=== PATIENT | female | born 1950 | race Caucasian/White ===

== ENCOUNTER 2016-08-25 22:10 | Emergency (ER) | payer MEDICARE, OTHER ==
[2016-08-25 22:26] VITALS: TEMP 98.2
[2016-08-25] MEDS ORDERED: ACETAMINOPHEN TAB 500 MG TAB PO STA (22:54)
[2016-08-25 23:20] LABS: Basophils # (A) 0.1 k/uL (0-0.2); Basophils % (A) 1 %; CH 32.1; CHCM 35.1; Eosinophils # (A) 0.2 k/uL (0-0.7); Eosinophils % (A) 3 %; HCT 36.2 % (34.0-46.0); HDW 3.17; HGB 12.1 gm/dL (11.4-16.0); Luc # (Auto) 0.28; Luc % (Auto) 4; Lymphocytes # (A) 1.3 k/uL (1.0-4.8); Lymphocytes % (A) 19 %; MCH 30.8 pg (25.0-35.0); MCHC 33.5 g/dL (31.0-37.0); MCV 91.8 fL (80.0-100.0); Mean Platelet Volume 9.1; Monocytes # (A) 0.4 k/uL (0-1.0); Monocytes % (A) 6 %; Neutrophils # (A) 4.5 k/uL (1.3-7.7); Neutrophils % (A) 67 %; RBC 3.94 m/uL (3.80-5.40); RDW 13.9 % (11.5-15.5); WBC 6.8 k/uL (3.8-10.6); WBC (Perox) 6.54
[2016-08-25 23:38] LABS: ALT 29 U/L (9-52); AST 21 U/L (14-36); Alkaline Phosphatase 64 U/L (38-126); Anion Gap 11 mmol/L; Blood Urea Nitrogen 28 mg/dL (7-17); C Reactive Protein 7.8 mg/L (<10.0); Calcium 9.4 mg/dL (8.4-10.2); Carbon Dioxide 24 mmol/L (22-30); Chloride 108 mmol/L (98-107); Glucose 147 mg/dL (74-99); Non-African American GFR(MDRD) 55 (>60 ml/min/1.73 sqM); Sodium 143 mmol/L (137-145); Total Bilirubin 0.4 mg/dL (0.2-1.3); Total Protein 7.2 g/dL (6.3-8.2)
--- NOTE | 2016-08-25 23:55 | ED ---
ENT HPI - General Chief complaint: ENT Stated complaint: ear & jaw swelling Time Seen by Provider: 08/25/16 22:34 Source: patient, RN notes reviewed Mode of arrival: ambulatory Limitations: no limitations - History of Present Illness Initial comments: Patient is a 66-year-old female with chief complaint of a sudden onset of right ear pain this evening. Patient states that the pain radiates from her ear towards her jaw. She also states that she is tender over the anterior part of her forehead. She denies any left-sided facial pain. She denies any significant neck pain, chest pain or shortness of breath. She states that she does have mild headache. She reports that she had a fever yesterday but none today and she denies any recent sinus congestion or pressure, sore throat. Patient which she has a past medical history of neuropathy, hypertension, diabetes, restless leg syndrome. - Related Data Home Medications Medication Instructions Recorded Confirmed ALPRAZolam [Xanax] 0.25 mg PO TID PRN 05/17/14 08/25/16 Acetaminophen-Codeine 300-30mg 1 tab PO BID PRN 05/17/14 08/25/16 [Tylenol w/codeine #3] Albuterol Inhaler [Ventolin Hfa 2 puff INHALATION RT-QID PRN 05/17/14 08/25/16 Inhaler] Allopurinol [Zyloprim] 300 mg PO DAILY 05/17/14 08/25/16 Cholecalciferol [Vitamin D3] 2,000 unit PO DAILY 05/17/14 08/25/16 Famotidine [Pepcid] 20 mg PO DAILY 05/17/14 08/25/16 Furosemide [Lasix] 40 mg PO DAILY 05/17/14 08/25/16 Metoprolol Tartrate [Lopressor] 50 mg PO BID 05/17/14 08/25/16 Potassium Chloride [K-Tab ER] 10 meq PO BID 05/17/14 08/25/16 Pregabalin [Lyrica] 75 mg PO BID 05/17/14 08/25/16 Simvastatin [Zocor] 20 mg PO HS 05/17/14 08/25/16 Spironolactone [Aldactone] 25 mg PO DAILY 05/17/14 08/25/16 metFORMIN HCL [Glucophage] 500 mg PO DAILY 05/17/14 08/25/16 Warfarin [Coumadin] 1.5 mg PO DAILY 06/28/15 08/25/16 Beclomethasone Dipropionate [Qvar 1 puff INHALATION RT-BID 06/29/15 08/25/16 80 mcg/puff] Benazepril HCl [Lotensin] 20 mg PO DAILY 06/29/15 08/25/16 Butalb/APAP/Caff 50-325-40Mg 1 tab PO Q6H PRN 06/29/15 08/25/16 [Fioricet 50-325-40] Fluticasone Nasal [place] [Flonase 1 spray EA NOSTRIL DAILY 06/29/15 08/25/16 Nasal [place]] Nitroglycerin Sl Tabs [Nitrostat] 0.4 mg SUBLINGUAL Q5M PRN 06/29/15 08/25/16 Omeprazole [PriLOSEC] 20 mg PO DAILY 06/29/15 08/25/16 rOPINIRole HCL [Requip] 0.25 mg PO HS 06/29/15 08/25/16 Albuterol Nebulized [Ventolin 2.5 mg INHALATION RT-QID PRN 10/05/15 08/25/16 Nebulized] Previous Rx's Medication Instructions Recorded Ciprofloxacin HCl [Cipro] 500 mg PO Q12HR #14 tablet 10/07/15 Ipratropium-Albuterol Nebulize 3 ml INHALATION QID #120 neb 10/07/15 [Duoneb 0.5 mg-3 mg/3 ml Soln] Amoxic-Pot Clav 875-125Mg 1 tab PO Q12HR #14 tablet 08/26/16 [Augmentin 875-125] HYDROcodone/APAP 5-325MG [[place] 1 - 2 tab PO Q6HR PRN #12 tab 08/26/16 5-325] Allergies Allergy/AdvReac Type Severity Reaction Status Date / Time aspirin Allergy Unknown Verified 08/25/16 22:22 surgical tape AdvReac Unknown Uncoded 08/25/16 22:22 Review of Systems ROS Statement: Those systems with pertinent positive or pertinent negative responses have been documented in the HPI. ROS Other: All systems not noted in ROS Statement are negative. Past Medical History Past Medical History: COPD, CVA/TIA, Diabetes Mellitus, Hypertension, Myocardial Infarction ([place]) Additional Past Medical History / Comment(s): mechanical valve, PT STATED HAD CVA AFFECTED LT SIDE BUT NOW NO RESIDUAL PROBLEMS Last Myocardial Infarction Date:: 2004 History of Any Multi-Drug Resistant Organisms: None Reported Past Surgical History: Cholecystectomy, Coronary Bypass/CABG Additional Past Surgical History / Comment(s): lung surgery Past Anesthesia/Blood Transfusion Reactions: No Reported Reaction Date of Last Stent Placement:: 2004 Past Psychological History: Anxiety Smoking Status: Former smoker Past Alcohol Use History: None Reported Additional Past Alcohol Use History / Comment(s): STARTED SMOKING AT AGE 14 - QUIT 1994 SMOKED 1PPD, Past Drug Use History: None Reported - Past Family History Father History Unknown: Yes Mother Family Medical History: Cancer, Hypertension Additional Family Medical History / Comment(s): colon and liver cancer Sister(s) Family Medical History: Cancer Additional Family Medical History / Comment(s): lung cancer Brother(s) Family Medical History: COPD, Coronary Artery Disease (CAD), Diabetes Mellitus Additional Family Medical History / Comment(s): fem pop General Exam - General Exam Comments Initial Comments: Patient is an alert and oriented [id number] female. No acute distress. Limitations: no limitations General appearance: alert, in no apparent distress Head exam: Present: atraumatic, normocephalic, normal inspection Eye exam: Present: normal appearance, PERRL, EOMI. Absent: scleral icterus, conjunctival injection, periorbital swelling ENT exam: Present: normal exam, normal oropharynx, mucous membranes moist, other (Patient has tenderness over the right forehead. No tenderness underneath the eye. Patient days that the pain radiates toward her jaw but denies any significant tenderness to palpation over the jaw.). Absent: TM's normal bilaterally (Vision is evidence of scarring over the left TM. The right TM is intact and no evidence of TM perforation, erythema or bulging. There is evidence of a mild scar at the 7 o'clock position of the TM.) Neck exam: Present: normal inspection. Absent: tenderness, meningismus, lymphadenopathy Respiratory exam: Present: normal lung sounds bilaterally. Absent: respiratory distress, wheezes, rales, rhonchi, stridor Cardiovascular Exam: Present: regular rate, normal rhythm, normal heart sounds. Absent: systolic murmur, diastolic murmur, rubs, gallop, clicks GI/Abdominal exam: Present: soft, normal bowel sounds. Absent: distended, tenderness, guarding, rebound, rigid Extremities exam: Present: normal inspection, full ROM, normal capillary refill. Absent: tenderness, pedal edema, joint swelling, calf tenderness Back exam: Present: normal inspection Neurological exam: Present: alert, oriented X3, CN II-XII intact Psychiatric exam: Present: normal affect, normal mood Skin exam: Present: warm, dry, intact, normal color. Absent: rash Course Vital Signs 08/25/16 22:23 Temperature 98.2 F Pulse Rate 66 Respiratory 18 Rate Blood Pressure 156/92 O2 Sat by Pulse 95 Oximetry Medical Decision Making - Medical Decision Making Long patient is a 66-year-old female with chief complaint of sudden onset of right sided ear pain. She denies any recent fever or chills or sinus congestion prior to the ear pain. Patient does have some tenderness over the right anterior forehead. There is a possibility that she may have giant cell arteritis or possibility of trigeminal neuralgia. Patient is not tender over the jaw or underneath the eye. Labs were obtained a CT of the brain was also obtained. Labs show no evidence of any significant abnormalities and ESR and CRP are negative. CT was negative for any acute process. There is evidence of chronic degenerative changes. Patient given IV morphine for her current pain. I discussed case Dr. Epps, he recommended to avoid doing any steroids into to offer the patient pain medication and possibly antibiotics. Patient is concerned that if she does not have antibiotics this can affect her heart valve if she does have an infection. Patient will be placed on Augmentin. Patient advised to follow-up with ENT specialist on Sunday. Patient understands the treatment plan and will comply. Return parameters were discussed. - Lab Data Result diagrams: 08/25/16 23:10 08/25/16 23:10 Lab Results 08/25/16 08/25/16 Range/Units 23:10 23:10 WBC 6.8 (3.8-10.6) k/uL RBC 3.94 (3.80-5.40) m/uL Hgb 12.1 (11.4-16.0) gm/dL Hct 36.2 (34.0-46.0) % MCV 91.8 (80.0-100.0) fL MCH 30.8 (25.0-35.0) pg MCHC 33.5 (31.0-37.0) g/dL RDW 13.9 (11.5-15.5) % Plt Count 150 (150-450) k/uL Neutrophils % 67 % Lymphocytes % 19 % Monocytes % 6 % Eosinophils % 3 % Basophils % 1 % Neutrophils # 4.5 (1.3-7.7) k/uL Lymphocytes # 1.3 (1.0-4.8) k/uL Monocytes # 0.4 (0-1.0) k/uL Eosinophils # 0.2 (0-0.7) k/uL Basophils # 0.1 (0-0.2) k/uL ESR 18 (0-20) mm/hr Sodium 143 (137-145) mmol/L Potassium 4.0 (3.5-5.1) mmol/L Chloride 108 H (98-107) mmol/L Carbon Dioxide 24 (22-30) mmol/L Anion Gap 11 mmol/L BUN 28 H (7-17) mg/dL Creatinine 1.00 (0.52-1.04) mg/dL Est GFR (MDRD) Af Amer >60 (>60 ml/min/1.73 sqM) Est GFR (MDRD) Non-Af 55 (>60 ml/min/1.73 sqM) Glucose 147 H (74-99) mg/dL Calcium 9.4 (8.4-10.2) mg/dL Total Bilirubin 0.4 (0.2-1.3) mg/dL AST 21 (14-36) U/L ALT 29 (9-52) U/L Alkaline Phosphatase 64 (38-126) U/L C-Reactive Protein 7.8 (<10.0) mg/L Total Protein 7.2 (6.3-8.2) g/dL Albumin 4.4 (3.5-5.0) g/dL - Radiology Data Radiology results: report reviewed No anterior cranial hemorrhage, mass effect or midline shift seen. Mild chronic white matter ischemic changes of the brain. No significant interval change. Mild chronic sinusitis changes. Disposition Clinical Impression: Right ear pain Disposition: HOME SELF-CARE Condition: Good Instructions: Earache (ED) Additional Instructions: Patient advised to follow up with primary care provider. Follow-up with ENT specialist. Return to the [facility] if any alarming signs or symptoms occur. Take Motrin and Tylenol and prescriptions as prescribed. Prescriptions: Amoxic-Pot Clav 875-125Mg [Augmentin 875-125] 1 tab PO Q12HR #14 tablet HYDROcodone/APAP 5-325MG [[place] 5-325] 1 - 2 tab PO Q6HR PRN #12 tab PRN Reason: Pain Referrals: Antione Cook MD [Primary Care Provider] - 1-2 days Jhony Sexton MD [STAFF PHYSICIAN] - 1-2 days Time of Disposition: 00:27
--- NOTE | 2016-08-26 00:10 | CT ---
EXAMINATION TYPE: CT brain wo con DATE OF EXAM: 08/25/2016 11:34 PM COMPARISON: 06/30/2015 HISTORY: Ear pain, more so on the rt side. Rt sided Jaw pain, Hx: cva CT DLP: 1054.20 mGycm Automated exposure control for dose reduction was used. FINDINGS: There is no acute intracranial hemorrhage, mass effect, or midline shift identified. The cortical sul ci and ventricles are prominent with mild atrophic changes of brain with periventricular white matter ischemic changes of chronic nature. The globes are intact. Mild mucosal thickening is noted in the ethmoid sinuses with chronic sinusitis changes. Visualized middle external and the internal ear canals on either side showed no significant acute abn ormality. Mastoid air cells appear grossly clear bilaterally. IMPRESSION: No acute intracranial hemorrhage, mass effect, or midline shift is seen. Mild chronic white matter ischemic changes of brain. No significant interval change. Mild chronic sinusitis changes.
[2016-08-26 00:20] LABS: Erythrocyte Sedimentation Rate 18 mm/hr (0-20)
[2016-08-26] MEDS ORDERED: MORPHINE SULFATE 2 MG/ML SYRINGE IVP ONE (00:25)
[2016-08-26 00:48] VITALS: BP 128/74; PULSE 71; RESP 16
== END 2016-08-26 00:47 | disposition home or self-care (01) ==
LOC: EC 22:10
DX: H92.01 Otalgia, right ear (principal); E11.40 Type 2 diabetes mellitus with diabetic neuropathy, unspecified; J32.9 Chronic sinusitis, unspecified; I10 Essential (primary) hypertension; I25.2 Old myocardial infarction; J44.9 Chronic obstructive pulmonary disease, unspecified; G25.81 Restless legs syndrome; F41.9 Anxiety disorder, unspecified; Z87.891 Personal history of nicotine dependence; Z95.1 Presence of aortocoronary bypass graft; Z91.048 Other nonmedicinal substance allergy status; Z79.899 Other long term (current) drug therapy; Z79.01 Long term (current) use of anticoagulants; Z86.73 Personal history of transient ischemic attack (TIA), and cerebral infarction without residual deficits
CPT/HCPCS: 99284; 96374; 36415; 80053; 85652; 85025; 86140; 70450; J2270

== ENCOUNTER → 2016-11-08 | Outpatient (CLI) | payer MEDICARE, OTHER ==
--- NOTE | 2016-11-08 13:04 | US ---
EXAMINATION TYPE: US abdomen complete DATE OF EXAM: 11/08/2016 12:53 PM COMPARISON: NONE CLINICAL HISTORY: 66-year-old female RUQ Abdominal Pain R10.11. TECHNIQUE: Multiple sonographic images of the abdomen were obtained. FINDINGS: EXAM MEASUREMENTS: Liver Length: 13.7 cm Gallbladder: Surgically absent CBD: 5.8 mm Spleen: 11.4 cm Right Kidney: 10.2 x 5.3 x 4.8 cm Left Kidney: 9.9 x 4.6 x 5.3 cm Pancreas: No gross abnormality. Liver: Echogenic with coarsened echotexture. No focal lesion identified. Gallbladder: Surgically absent CBD: Within normal limits. Spleen: wnl Right Kidney: No hydronephrosis Left Kidney: No hydronephrosis. Upper IVC: wnl Abd Aorta: wnl IMPRESSION: 1. Coarsened and echogenic appearance to the liver. Correlate for underlying hepatic steatosis or non specific hepatocellular disease. 2. Status post cholecystectomy. No biliary ductal dilatation.
== END | disposition home or self-care (01) ==
LOC: RADUSWWP 12:24
PROVIDERS: ATTEND Family Medicine
DX: R93.2 Abnormal findings on diagnostic imaging of liver and biliary tract (principal); R10.11 Right upper quadrant pain; Z90.49 Acquired absence of other specified parts of digestive tract; Z88.6 Allergy status to analgesic agent
CPT/HCPCS: 76700

== ENCOUNTER → 2016-11-13 | Outpatient (CLI) | payer MEDICARE, OTHER ==
[2016-11-13 18:21] LABS: Blood Urea Nitrogen 30 mg/dL (7-17); Non-African American GFR(MDRD) 51 (>60 ml/min/1.73 sqM)
--- NOTE | 2016-11-13 19:38 | CT ---
EXAMINATION TYPE: CT abdomen w con DATE OF EXAM: 11/13/2016 6:54 PM COMPARISON: 12/27/2010 HISTORY: Upper Abdomen pain for [address] DLP: 1163 mGycm Automated exposure control for dose reduction was used. TECHNIQUE: Helical acquisition of images was performed from the lung bases through the top of iliac crest to include entire abdomen. CONTRAST: Performed with Oral Contrast and with IV Contrast, patient injected with 80 mL of Visipaque 320. FINDINGS: There is patchy linear density at the lung bases. Heart is enlarged. There is pleural thickening at t he left posterior lung base with a 2 cm mass adjacent to the pleura posteriorly. There is calcification of the diaphragmatic pleura on the left side. Liver spleen pancreas appear normal. There are clips from cholecystectomy. Bile ducts are not dilated . There is no adrenal mass. There is a 1 cm cortical cyst on the posterior right kidney. There is mil d renal cortical thinning. There is no hydronephrosis. There is no retroperitoneal adenopathy. There is no ascites. I see no intestinal wall thickening. There is no sign of a bowel obstruction. There is no free air. Bony structures appear intact. IMPRESSION: ATHEROSCLEROTIC VASCULAR DISEASE. PLEURAL THICKENING AT THE LEFT LUNG BASE CONSISTENT WITH SCARRING. THERE IS PLEURAL CALCIFICATION THAT IS NEW COMPARED TO OLD EXAM. THERE IS A SUBPLEURAL 2 CM MASS AT T HE LEFT POSTERIOR LUNG BASE THAT IS STABLE COMPARED TO OLD EXAM OF 12/27/2010 AND CONSISTENT WITH SCAR RING. MILD RENAL CORTICAL ATROPHY. CARDIOMEGALY IS NOTED.
== END | disposition home or self-care (01) ==
LOC: RADCTMAIN 17:38
PROVIDERS: ATTEND Family Medicine
DX: N26.1 Atrophy of kidney (terminal) (principal); R10.11 Right upper quadrant pain; Z88.6 Allergy status to analgesic agent
CPT/HCPCS: 82565; 84520; 74160; 36415; Q9967

== ENCOUNTER → 2016-11-23 | Outpatient (CLI) | payer MEDICARE, OTHER ==
--- NOTE | 2016-11-23 15:57 | XR ---
EXAMINATION TYPE: XR chest 2V DATE OF EXAM: 11/23/2016 12:02 PM COMPARISON: 10/05/2015 HISTORY: 66-year-old female MRI clearance TECHNIQUE: Frontal and lateral views FINDINGS: Heart is upper limits of normal in size to mildly enlarged. Median sternotomy wires are present. Diff use interstitial prominence of the chronic appearance. Stable patchy and curvilinear left basilar [place] likely pleural parenchymal scarring. No significant pleural effusion or new area of consolidatio n. No retained epicardial pacer leads seen. Surgical clips seen in the upper abdomen on the lateral v iew. IMPRESSION: Borderline heart size and chronic changes. Possible chronic bronchitis/asthma. Clear for MRI.
== END ==
LOC: RADXRMAIN 11:45
PROVIDERS: ATTEND Orthopaedic Surgery
DX: Z01.818 Encounter for other preprocedural examination (principal)
CPT/HCPCS: 71020

== ENCOUNTER 2017-01-06 19:05 | Inpatient (IN) | payer MEDICARE, OTHER ==
[2017-01-06 19:23] LABS: Glucose,Whole Blood 141 mg/dL (75-99)
[2017-01-06] MEDS ORDERED: SODIUM CHLORIDE 0.9% 1,000 ML IV STA ×3 (19:51→20:33)
[2017-01-06 20:03] LABS: Basophils # (A) 0.1 k/uL (0-0.2); Basophils % (A) 1 %; CH 31.1; CHCM 34.2; Eosinophils # (A) 0.1 k/uL (0-0.7); Eosinophils % (A) 1 %; HCT 35.4 % (34.0-46.0); HDW 2.98; HGB 12.2 gm/dL (11.4-16.0); Luc # (Auto) 0.39; Luc % (Auto) 2; Lymphocytes # (A) 1.4 k/uL (1.0-4.8); Lymphocytes % (A) 8 %; MCH 31.6 pg (25.0-35.0); MCHC 34.5 g/dL (31.0-37.0); MCV 91.6 fL (80.0-100.0); Mean Platelet Volume 10.2; Monocytes # (A) 0.7 k/uL (0-1.0); Monocytes % (A) 4 %; Neutrophils # (A) 14.6 k/uL (1.3-7.7); Neutrophils % (A) 84 %; RBC 3.87 m/uL (3.80-5.40); RDW 13.9 % (11.5-15.5); WBC 17.4 k/uL (3.8-10.6)
--- NOTE | 2017-01-06 20:03 | ED ---
General Adult HPI - General Chief complaint: Weakness Stated complaint: weakness/dizzy Time Seen by Provider: 01/06/17 19:43 Source: patient, RN notes reviewed Mode of arrival: wheelchair Limitations: no limitations - History of Present Illness Initial comments: Patient is a pleasant 66-year-old female presenting to the emergency department with weakness and dizziness. Onset was this morning and has worsened. Patient has had more than 10 episodes of diarrhea. No abdominal pain. No nausea or vomiting. Patient feels weak all over especially when she tries to walk. Patient was on antibiotics for her knee surgery a few weeks ago. Patient is followed up with orthopedic doctor and said everything was fine. No knee pain or swelling. No leg pain or leg swelling. No chest pain or dyspnea. - Related Data Home Medications Medication Instructions Recorded Confirmed ALPRAZolam [Xanax] 0.25 mg PO TID PRN 05/17/14 01/06/17 Acetaminophen-Codeine 300-30mg 1 tab PO BID PRN 05/17/14 01/06/17 [Tylenol w/codeine #3] Albuterol Inhaler [Ventolin Hfa 2 puff INHALATION RT-QID PRN 05/17/14 01/06/17 Inhaler] Cholecalciferol [Vitamin D3] 2,000 unit PO DAILY 05/17/14 01/06/17 Famotidine [Pepcid] 20 mg PO DAILY 05/17/14 01/06/17 Furosemide [Lasix] 40 mg PO DAILY 05/17/14 01/06/17 Metoprolol Tartrate [Lopressor] 50 mg PO BID 05/17/14 01/06/17 Potassium Chloride [K-Tab ER] 10 meq PO BID 05/17/14 01/06/17 Pregabalin [Lyrica] 75 mg PO BID 05/17/14 01/06/17 Simvastatin [Zocor] 20 mg PO HS 05/17/14 01/06/17 Spironolactone [Aldactone] 25 mg PO DAILY 05/17/14 01/06/17 Warfarin [Coumadin] 1.5 mg PO DAILY 06/28/15 01/06/17 Beclomethasone Dipropionate [Qvar 1 puff INHALATION RT-BID 06/29/15 01/06/17 80 mcg/puff] Benazepril HCl [Lotensin] 20 mg PO DAILY 06/29/15 01/06/17 Butalb/APAP/Caff 50-325-40Mg 1 tab PO Q6H PRN 06/29/15 01/06/17 [Fioricet 50-325-40] Fluticasone Nasal [place] [Flonase 1 spray EA NOSTRIL DAILY 06/29/15 01/06/17 Nasal [place]] Nitroglycerin Sl Tabs [Nitrostat] 0.4 mg SUBLINGUAL Q5M PRN 06/29/15 01/06/17 Omeprazole [PriLOSEC] 20 mg PO DAILY 06/29/15 01/06/17 rOPINIRole HCL [Requip] 0.25 mg PO HS 06/29/15 01/06/17 Allergies Allergy/AdvReac Type Severity Reaction Status Date / Time aspirin Allergy Unknown Verified 01/06/17 19:52 surgical tape AdvReac Unknown Uncoded 01/06/17 19:13 Review of Systems ROS Statement: Those systems with pertinent positive or pertinent negative responses have been documented in the HPI. ROS Other: All systems not noted in ROS Statement are negative. Constitutional: Denies: fever Eyes: Denies: eye pain ENT: Denies: ear pain Respiratory: Denies: dyspnea Cardiovascular: Denies: chest pain Endocrine: Reports: fatigue Gastrointestinal: Reports: diarrhea. Denies: abdominal pain, nausea, vomiting Genitourinary: Denies: dysuria Musculoskeletal: Denies: back pain Skin: Denies: rash Neurological: Reports: weakness (Generalized) Past Medical History Past Medical History: COPD, CVA/TIA, Diabetes Mellitus, Hypertension, Myocardial Infarction ([place]) Additional Past Medical History / Comment(s): mechanical valve, PT STATED HAD CVA AFFECTED LT SIDE BUT NOW NO RESIDUAL PROBLEMS Last Myocardial Infarction Date:: 2004 History of Any Multi-Drug Resistant Organisms: None Reported Past Surgical History: Cholecystectomy, Coronary Bypass/CABG Additional Past Surgical History / Comment(s): lung surgery Past Anesthesia/Blood Transfusion Reactions: No Reported Reaction Date of Last Stent Placement:: 2004 Past Psychological History: Anxiety Smoking Status: Former smoker Past Alcohol Use History: None Reported Past Drug Use History: None Reported - Past Family History Father History Unknown: Yes Mother Family Medical History: Cancer, Hypertension Additional Family Medical History / Comment(s): colon and liver cancer Sister(s) Family Medical History: Cancer Additional Family Medical History / Comment(s): lung cancer Brother(s) Family Medical History: COPD, Coronary Artery Disease (CAD), Diabetes Mellitus Additional Family Medical History / Comment(s): fem pop General Exam Limitations: no limitations General appearance: alert, in no apparent distress Head exam: Present: atraumatic Eye exam: Present: normal appearance, PERRL ENT exam: Present: normal oropharynx Neck exam: Present: normal inspection Respiratory exam: Present: normal lung sounds bilaterally Cardiovascular Exam: Present: regular rate, normal rhythm GI/Abdominal exam: Present: soft, normal bowel sounds. Absent: distended, tenderness Extremities exam: Present: normal inspection, other (Incisions left knee clean and dry and intact. No swelling or tenderness.). Absent: pedal edema, calf tenderness Neurological exam: Present: alert Psychiatric exam: Present: normal affect, normal mood Skin exam: Present: normal color Course Vital Signs 01/06/17 01/06/17 01/06/17 19:09 19:13 19:30 Temperature 97.9 F Pulse Rate 96 61 60 Respiratory 16 16 16 Rate Blood Pressure 91/48 82/48 O2 Sat by Pulse 93 L 98 98 Oximetry 01/06/17 01/06/17 01/06/17 19:45 20:16 20:38 Temperature Pulse Rate 57 L 55 L 54 L Respiratory 18 16 18 Rate Blood Pressure 86/52 94/53 105/52 O2 Sat by Pulse 97 98 99 Oximetry EKG Findings - EKG Comments: EKG Findings:: Normal sinus rhythm 61. Normal intervals. Normal axis. Normal QRS. Nonspecific ST-T. Medical Decision Making - Medical Decision Making Patient reexamined and updated. Case discussed in detail with Dr. Cook, who will admit his patient. He does request antibiotics and consult with Dr. Chavez as well as infectious disease. C. diff is still pending. - Lab Data Result diagrams: 01/06/17 19:30 01/06/17 19:30 Lab Results 01/06/17 01/06/17 01/06/17 Range/Units 19:21 19:30 19:30 WBC 17.4 H (3.8-10.6) k/uL RBC 3.87 (3.80-5.40) m/uL Hgb 12.2 (11.4-16.0) gm/dL Hct 35.4 (34.0-46.0) % MCV 91.6 (80.0-100.0) fL MCH 31.6 (25.0-35.0) pg MCHC 34.5 (31.0-37.0) g/dL RDW 13.9 (11.5-15.5) % Plt Count 230 (150-450) k/uL Neutrophils % 84 % Lymphocytes % 8 % Monocytes % 4 % Eosinophils % 1 % Basophils % 1 % Neutrophils # 14.6 H (1.3-7.7) k/uL Lymphocytes # 1.4 (1.0-4.8) k/uL Monocytes # 0.7 (0-1.0) k/uL Eosinophils # 0.1 (0-0.7) k/uL Basophils # 0.1 (0-0.2) k/uL PT (9.0-12.0) sec INR (<1.1) APTT (22.0-30.0) sec Sodium (137-145) mmol/L Potassium (3.5-5.1) mmol/L Chloride (98-107) mmol/L Carbon Dioxide (22-30) mmol/L Anion Gap mmol/L BUN (7-17) mg/dL Creatinine (0.52-1.04) mg/dL Est GFR (MDRD) Af Amer (>60 ml/min/1.73 sqM) Est GFR (MDRD) Non-Af (>60 ml/min/1.73 sqM) Glucose (74-99) mg/dL POC Glucose (mg/dL) 141 H (75-99) mg/dL POC Glu [facility] Nurse ID Vikram, Sujata Calcium (8.4-10.2) mg/dL Magnesium (1.6-2.3) mg/dL Total Bilirubin (0.2-1.3) mg/dL AST (14-36) U/L ALT (9-52) U/L Alkaline Phosphatase (38-126) U/L Total Creatine Kinase 75 (30-135) U/L CK-MB (CK-2) 0.8 (0.0-2.4) ng/mL CK-MB (CK-2) Rel Index 1.1 Troponin I 0.017 (0.000-0.034) ng/mL Total Protein (6.3-8.2) g/dL Albumin (3.5-5.0) g/dL TSH (0.465-4.680) mIU/L Free T4 (0.78-2.19) ng/dL Free T3 pg/mL (2.8-5.3) pg/ml 01/06/17 01/06/17 Range/Units 19:30 19:30 WBC (3.8-10.6) k/uL RBC (3.80-5.40) m/uL Hgb (11.4-16.0) gm/dL Hct (34.0-46.0) % MCV (80.0-100.0) fL MCH (25.0-35.0) pg MCHC (31.0-37.0) g/dL RDW (11.5-15.5) % Plt Count (150-450) k/uL Neutrophils % % Lymphocytes % % Monocytes % % Eosinophils % % Basophils % % Neutrophils # (1.3-7.7) k/uL Lymphocytes # (1.0-4.8) k/uL Monocytes # (0-1.0) k/uL Eosinophils # (0-0.7) k/uL Basophils # (0-0.2) k/uL PT 33.2 H (9.0-12.0) sec INR 3.4 (<1.1) APTT 35.9 H (22.0-30.0) sec Sodium 134 L (137-145) mmol/L Potassium 6.2 H* (3.5-5.1) mmol/L Chloride 99 (98-107) mmol/L Carbon Dioxide 18 L (22-30) mmol/L Anion Gap 17 mmol/L BUN 68 H (7-17) mg/dL Creatinine 5.80 H* (0.52-1.04) mg/dL Est GFR (MDRD) Af Amer 9 (>60 ml/min/1.73 sqM) Est GFR (MDRD) Non-Af 7 (>60 ml/min/1.73 sqM) Glucose 130 H (74-99) mg/dL POC Glucose (mg/dL) (75-99) mg/dL POC Glu [facility] Nurse ID Calcium 8.6 (8.4-10.2) mg/dL Magnesium 2.2 (1.6-2.3) mg/dL Total Bilirubin 0.4 (0.2-1.3) mg/dL AST 21 (14-36) U/L ALT 33 (9-52) U/L Alkaline Phosphatase 91 (38-126) U/L Total Creatine Kinase (30-135) U/L CK-MB (CK-2) (0.0-2.4) ng/mL CK-MB (CK-2) Rel Index Troponin I (0.000-0.034) ng/mL Total Protein 6.7 (6.3-8.2) g/dL Albumin 4.1 (3.5-5.0) g/dL TSH 4.080 (0.465-4.680) mIU/L Free T4 0.92 (0.78-2.19) ng/dL Free T3 pg/mL 3.1 (2.8-5.3) pg/ml - Radiology Data Radiology results: image reviewed (Chest x-ray shows no acute process) Disposition Clinical Impression: Diarrhea, Acute renal failure (ARF) Disposition: ADMITTED IP TO THIS [facility] Condition: Serious Referrals: Antione Cook MD [Primary Care Provider] - 1-2 days Decision Time: 21:24
[2017-01-06 20:12] LABS: INR 3.4 (<1.1); Partial Thromboplastin Time 35.9 sec (22.0-30.0); Prothrombin Time 33.2 sec (9.0-12.0)
[2017-01-06 20:13] LABS: Calcium 8.6 mg/dL (8.4-10.2); Magnesium 2.2 mg/dL (1.6-2.3); Total Bilirubin 0.4 mg/dL (0.2-1.3); Total Protein 6.7 g/dL (6.3-8.2)
[2017-01-06 20:21] LABS: Potassium 6.2 mmol/L (3.5-5.1)
--- NOTE | 2017-01-06 20:35 | XR ---
EXAMINATION TYPE: XR chest 2V DATE OF EXAM: 01/06/2017 COMPARISON: 11/23/2016 INDICATION: Weakness TECHNIQUE: Frontal and lateral views of the chest are obtained. FINDINGS: The heart size is mildly prominent. Sternotomy wires from previous CABG are evident.. The pulmonary vasculature is normal. The lungs are clear. IMPRESSION: 1. No acute pulmonary process.
[2017-01-06 20:42] LABS: Creatine Kinase MB 0.8 ng/mL (0.0-2.4); Troponin I 0.017 ng/mL (0.000-0.034)
[2017-01-06] MEDS ORDERED: metroNIDAZOLE 500 MG TAB PO STA (21:12)
[2017-01-06] MEDS ORDERED: LEVOFLOXACIN 750MG-D5W PMX 750 MG in DEXTROSE/WATER 1 150ML.BAG IVPB STA (21:13)
[2017-01-06] MEDS ORDERED: NALOXONE 0.4 MG/ML 1 ML VIAL IV PRN (21:24)
[2017-01-06 23:50] LABS: Appearance,Urine Clear (Clear); Bilirubin,Urine Negative (Negative); Glucose,Urine (UA) Negative (Negative); Ketones,Urine Negative (Negative); Leukocyte Esterase,Urine Negative (Negative); Nitrite,Urine Negative (Negative); Protein,Urine Trace (Negative); Specific Gravity,Urine 1.011 (1.001-1.035); UA Billing (MACRO vs. MICRO) CHEM; Urobilinogen,Urine <2.0 mg/dL (<2.0)
[2017-01-07 00:05] VITALS: BMI 33.1
[2017-01-07] MEDS: SODIUM CHLORIDE 0.9% 1,000 ML IV SCH ×2 (00:20→05:16)
[2017-01-07] MEDS ORDERED: FUROSEMIDE 10 MG/ML 4 ML VIAL IV STA (04:47)
[2017-01-07] MEDS ORDERED: SODIUM BICARB 8.4% 50 ML SYR (1 MEQ/ML) IV ONE (05:00)
[2017-01-07] MEDS: SODIUM POLYSTYRENE SULFONATE 15 GM/60 ML BOTTLE PO SCH ×2 (05:16→08:24)
[2017-01-07 07:20] LABS: Glucose,Whole Blood 106 mg/dL (75-99)
[2017-01-07] MEDS: PANTOPRAZOLE 40 MG/10 ML VIAL IV SCH (08:24)
[2017-01-07] MEDS: metroNIDAZOLE 500 MG TAB PO SCH ×4 (08:24→21:28)
[2017-01-07] MEDS: MORPHINE SULFATE 4 MG/ML SYRINGE IV PRN ×2 (08:30→21:08)
--- NOTE | 2017-01-07 08:33 | P.NPCON ---
History of Present Illness - Reason for Consult acute renal failure, hyperkalemia - History of Present Illness Patient is a 66-year-old female with a history of diabetes mellitus, hypertension, COPD. Patient was admitted to the hospital with complaints of diarrhea which had been going on for about 1-1/2 day prior to admission. She was noted to have a serum creatinine of 5.8. Prior creatinine was 1.08 on 11/13. Patient was maintained on BOOM inhibitor's at home. She denies use of any nonsteroidal anti-inflammatory agents. Blood pressure had been low with systolic in the 90s at the time of admission. This morning patient states her diarrhea has improved. She is tolerating oral intake. Her potassium was at 6.2 she has received a dose of Kayexalate and repeat labs are pending. Patient is voiding well Review of Systems As per HPI other systems negative Past Medical History Past Medical History: Heart Failure, COPD, CVA/TIA, Diabetes Mellitus, Deep Vein Thrombosis (DVT), Hypertension, Myocardial Infarction ([place]), Osteoarthritis (OA) Additional Past Medical History / Comment(s): mechanical valve, PT STATED HAD CVA AFFECTED LT SIDE BUT NOW NO RESIDUAL PROBLEMS Last Myocardial Infarction Date:: 1994 History of Any Multi-Drug Resistant Organisms: None Reported Past Surgical History: Cholecystectomy, Coronary Bypass/CABG, Orthopedic Surgery Additional Past Surgical History / Comment(s): lung surgery, left knee surgery Past Anesthesia/Blood Transfusion Reactions: No Reported Reaction Date of Last Stent Placement:: 2004 Past Psychological History: Anxiety Smoking Status: Never smoker - Past Family History Father History Unknown: Yes Mother Family Medical History: Cancer, Hypertension Additional Family Medical History / Comment(s): colon and liver cancer Sister(s) Family Medical History: Cancer Additional Family Medical History / Comment(s): lung cancer Brother(s) Family Medical History: COPD, Coronary Artery Disease (CAD), Diabetes Mellitus Additional Family Medical History / Comment(s): fem pop Medications and Allergies Home Medications Medication Instructions Recorded Confirmed Type ALPRAZolam [Xanax] 0.25 mg PO TID PRN 05/17/14 01/06/17 History Acetaminophen-Codeine 300-30mg 1 tab PO BID PRN 05/17/14 01/06/17 History [Tylenol w/codeine #3] Albuterol Inhaler [Ventolin Hfa 2 puff INHALATION RT-QID PRN 05/17/14 01/06/17 History Inhaler] Cholecalciferol [Vitamin D3] 2,000 unit PO DAILY 05/17/14 01/06/17 History Famotidine [Pepcid] 20 mg PO DAILY 05/17/14 01/06/17 History Furosemide [Lasix] 40 mg PO DAILY 05/17/14 01/06/17 History Metoprolol Tartrate [Lopressor] 50 mg PO BID 05/17/14 01/06/17 History Potassium Chloride [K-Tab ER] 10 meq PO BID 05/17/14 01/06/17 History Pregabalin [Lyrica] 75 mg PO BID 05/17/14 01/06/17 History Simvastatin [Zocor] 20 mg PO DAILY 05/17/14 01/06/17 History Spironolactone [Aldactone] 25 mg PO DAILY 05/17/14 01/06/17 History Warfarin [Coumadin] 1.5 mg PO HS 06/28/15 01/06/17 History Beclomethasone Dipropionate [Qvar 1 puff INHALATION RT-BID 06/29/15 01/06/17 History 80 mcg/puff] Benazepril HCl [Lotensin] 20 mg PO DAILY 06/29/15 01/06/17 History Butalb/APAP/Caff 50-325-40Mg 1 tab PO Q6H PRN 06/29/15 01/06/17 History [Fioricet 50-325-40] Fluticasone Nasal [place] [Flonase 1 spray EA NOSTRIL DAILY 06/29/15 01/06/17 History Nasal [place]] Nitroglycerin Sl Tabs [Nitrostat] 0.4 mg SUBLINGUAL Q5M PRN 06/29/15 01/06/17 History Omeprazole [PriLOSEC] 20 mg PO DAILY 06/29/15 01/06/17 History rOPINIRole HCL [Requip] 0.25 mg PO HS 06/29/15 01/06/17 History Clopidogrel [Plavix] 75 mg PO HS 01/06/17 01/06/17 History HYDROcodone/APAP 5-325MG [[place] 5 mg PO BID PRN 07/01/17 07/01/17 History 5-325] Allergies Allergy/AdvReac Type Severity Reaction Status Date / Time aspirin Allergy Unknown Verified 01/06/17 19:52 surgical tape AdvReac Unknown Uncoded 01/06/17 19:13 Physical Exam Vitals: Vital Signs Temp Pulse Pulse Pulse Resp BP BP 01/07/17 07:00 97.2 F L 66 20 01/06/17 23:30 97.1 F L 60 18 109/46 01/06/17 22:36 56 L 16 102/84 01/06/17 22:15 97.9 F 59 L 18 93/53 01/06/17 21:23 97.4 F L 59 L 16 104/50 01/06/17 20:38 54 L 18 105/52 01/06/17 20:16 55 L 16 94/53 01/06/17 19:45 57 L 18 86/52 01/06/17 19:30 60 16 82/48 01/06/17 19:13 61 16 91/48 01/06/17 19:09 97.9 F 96 16 BP Pulse Ox 01/07/17 07:00 97/46 94 L 01/06/17 23:30 96 01/06/17 22:36 98 01/06/17 22:15 98 01/06/17 21:23 99 01/06/17 20:38 99 01/06/17 20:16 98 01/06/17 19:45 97 01/06/17 19:30 98 01/06/17 19:13 98 01/06/17 19:09 93 L Intake and Output 01/06/17 01/07/17 01/07/17 22:59 06:59 14:59 Intake Total 300 Balance 300 Intake: Oral 300 Other: Voiding Method Toilet Bedside Commode # Voids 1 Weight 71.668 kg 74.5 kg On examination patient is comfortable awake alert oriented 3. She is not in any acute distress. Blood pressure is 97/46. Heart rate 66/m Examination of the heart S1 and S2 Exertion lungs bilateral breath sounds are heard Abdomen is soft nontender Examination lower extremities shows no evidence of edema. [employer] exam is grossly intact. Patient is moving all 4 extremities. No rashes are noted no lymph nodes are palpable. Results - Lab Results Most recent lab results Calcium 8.6 mg/dL (8.4-10.2) 01/06/17 19:30 Magnesium 2.2 mg/dL (1.6-2.3) 01/06/17 19:30 01/06/17 19:30 01/06/17 19:30 Assessment and Plan Plan: Assessment 1. Acute kidney injury most likely prerenal. Continue IV fluids check ultrasound of the kidneys. UA is quite benign. Previous creatinine was 1.0 in November 2016. 2. Non-gap metabolic acidosis secondary to diarrhea and renal failure. Will start patient on oral sodium bicarb. 3. Hyperkalemia associated with acute kidney injury and use of BOOM inhibitor as prior to admission repeat labs are pending. Patient has received a dose of Kayexalate 4. Diarrhea possibly related to gastroenteritis currently seems to have improved. 5. Rule out chronic kidney disease given the trace proteinuria possibly related to underlying diabetic nephropathy 6. Type 2 diabetes 7. Hypertension with blood pressure currently low continue to hold off on BOOM inhibitor's and other antihypertensive medications Plan Follow-up and repeat labs change IV fluids to half-normal saline start oral sodium bicarb. If her diarrhea continues I would avoid further Kayexalate. Thank you for this consultation we'll continue to follow the patient with you during her hospitalization.
[2017-01-07] MEDS: SODIUM CHLORIDE 0.45% 1,000 ML IV SCH ×2 (08:53→16:44)
[2017-01-07] MEDS: SODIUM BICARBONATE TAB 650 MG TAB PO SCH ×3 (08:53→21:08)
--- NOTE | 2017-01-07 10:09 | P.HPOR ---
History of Present Illness H&P Date: 01/07/17 Patient is seen and examined at bedside. She was admitted to the hospital in regards to her renal insufficiency. She also had some significant diarrhea yesterday. We're counseled on case in regards to follow-up for her left knee. She has undergone a left knee arthroscopy approximately [address] DE LEON. She followed up with him last week and was doing well and she continues to do quite well with her left knee. She's not any of any new issues with her knee. No complaints of fevers. She says that she has been able to move her knee well and there is no evidence of infection. Review of Systems Admits to significant diarrhea yesterday. She has been feeling somewhat tired. She is not completely of any problems at her knee. She had knee arthroscopy week and a half ago and has been making good progress. She was able to follow with Dr. DE LEON last week who gave her a plan for home exercise. Past Medical History Past Medical History: Heart Failure, COPD, CVA/TIA, Diabetes Mellitus, Deep Vein Thrombosis (DVT), Hypertension, Myocardial Infarction ([place]), Musculoskeletal Disorder (Status post left knee arthroscopy), Osteoarthritis (OA ) Additional Past Medical History / Comment(s): mechanical valve, PT STATED HAD CVA AFFECTED LT SIDE BUT NOW NO RESIDUAL PROBLEMS Last Myocardial Infarction Date:: 1994 History of Any Multi-Drug Resistant Organisms: None Reported Past Surgical History: Cholecystectomy, Coronary Bypass/CABG, Orthopedic Surgery Additional Past Surgical History / Comment(s): lung surgery, left knee surgery Past Anesthesia/Blood Transfusion Reactions: No Reported Reaction Date of Last Stent Placement:: 2004 Past Psychological History: Anxiety Smoking Status: Never smoker - Past Family History Father History Unknown: Yes Mother Family Medical History: Cancer, Hypertension Additional Family Medical History / Comment(s): colon and liver cancer Sister(s) Family Medical History: Cancer Additional Family Medical History / Comment(s): lung cancer Brother(s) Family Medical History: COPD, Coronary Artery Disease (CAD), Diabetes Mellitus Additional Family Medical History / Comment(s): fem pop Medications and Allergies Home Medications Medication Instructions Recorded Confirmed Type ALPRAZolam [Xanax] 0.25 mg PO TID PRN 05/17/14 01/06/17 History Acetaminophen-Codeine 300-30mg 1 tab PO BID PRN 05/17/14 01/06/17 History [Tylenol w/codeine #3] Albuterol Inhaler [Ventolin Hfa 2 puff INHALATION RT-QID PRN 05/17/14 01/06/17 History Inhaler] Cholecalciferol [Vitamin D3] 2,000 unit PO DAILY 05/17/14 01/06/17 History Famotidine [Pepcid] 20 mg PO DAILY 05/17/14 01/06/17 History Furosemide [Lasix] 40 mg PO DAILY 05/17/14 01/06/17 History Metoprolol Tartrate [Lopressor] 50 mg PO BID 05/17/14 01/06/17 History Potassium Chloride [K-Tab ER] 10 meq PO BID 05/17/14 01/06/17 History Pregabalin [Lyrica] 75 mg PO BID 05/17/14 01/06/17 History Simvastatin [Zocor] 20 mg PO DAILY 05/17/14 01/06/17 History Spironolactone [Aldactone] 25 mg PO DAILY 05/17/14 01/06/17 History Warfarin [Coumadin] 1.5 mg PO HS 06/28/15 01/06/17 History Beclomethasone Dipropionate [Qvar 1 puff INHALATION RT-BID 06/29/15 01/06/17 History 80 mcg/puff] Benazepril HCl [Lotensin] 20 mg PO DAILY 06/29/15 01/06/17 History Butalb/APAP/Caff 50-325-40Mg 1 tab PO Q6H PRN 06/29/15 01/06/17 History [Fioricet 50-325-40] Fluticasone Nasal [place] [Flonase 1 spray EA NOSTRIL DAILY 06/29/15 01/06/17 History Nasal [place]] Nitroglycerin Sl Tabs [Nitrostat] 0.4 mg SUBLINGUAL Q5M PRN 06/29/15 01/06/17 History Omeprazole [PriLOSEC] 20 mg PO DAILY 06/29/15 01/06/17 History rOPINIRole HCL [Requip] 0.25 mg PO HS 06/29/15 01/06/17 History Clopidogrel [Plavix] 75 mg PO HS 01/06/17 01/06/17 History HYDROcodone/APAP 5-325MG [[place] 5 mg PO BID PRN 01/06/17 01/06/17 History 5-325] Allergies Allergy/AdvReac Type Severity Reaction Status Date / Time aspirin Allergy Unknown Verified 01/06/17 19:52 surgical tape AdvReac Unknown Uncoded 01/06/17 19:13 Physical Examination Osteopathic Statement: *. No significant issues noted on an osteopathic structural exam other than those noted in the History and Physical/Consult. Results - Labs Labs: Abnormal Lab Results - Last 24 Hours (Table) 01/06/17 01/06/17 01/06/17 Range/Units 19:21 19:30 19:30 WBC 17.4 H (3.8-10.6) k/uL Neutrophils # 14.6 H (1.3-7.7) k/uL PT (9.0-12.0) sec APTT (22.0-30.0) sec Sodium 134 L (137-145) mmol/L Potassium 6.2 H* (3.5-5.1) mmol/L Carbon Dioxide 18 L (22-30) mmol/L BUN 68 H (7-17) mg/dL Creatinine 5.80 H* (0.52-1.04) mg/dL Glucose 130 H (74-99) mg/dL POC Glucose (mg/dL) 141 H (75-99) mg/dL Urine Protein (Negative) 01/06/17 01/06/17 01/07/17 Range/Units 19:30 23:15 07:07 WBC (3.8-10.6) k/uL Neutrophils # (1.3-7.7) k/uL PT 33.2 H (9.0-12.0) sec APTT 35.9 H (22.0-30.0) sec Sodium (137-145) mmol/L Potassium (3.5-5.1) mmol/L Carbon Dioxide (22-30) mmol/L BUN (7-17) mg/dL Creatinine (0.52-1.04) mg/dL Glucose (74-99) mg/dL POC Glucose (mg/dL) 106 H (75-99) mg/dL Urine Protein Trace H (Negative) H & H 01/06/17 Range/Units 19:30 Hgb 12.2 (11.4-16.0) gm/dL Hct 35.4 (34.0-46.0) % Coagulation 01/06/17 Range/Units 19:30 INR 3.4 (<1.1) Result Diagrams: 01/06/17 19:30 01/06/17 19:30 Assessment and Plan Plan: Orthopedic Follow-up for her left knee arthroscopy approximately 8 days post op Renal insufficiency In regards to the patient's left knee she is making good progress postoperatively from her arthroscopy with Dr. DE LEON approximately 8 weeks ago. She may weight-bear as tolerated and has been given a home exercise program for range of motion and strengthening for her knee. She understands her exercises and has been performing them here. She does not have any evidence of infection or wound dehiscence or wound problems. She will need further strengthening around her right knee as she continues to improve. She may weight-bear as tolerated. She has scheduled follow-up with Dr. DE LEON in approximately 3-4 weeks and I think that is appropriate for her. We do not plan any further intervention or workup for her knee at this point. She can follow up as scheduled as an outpatient. She is currently being managed medically in regards to her renal insufficiency and possible Clostridium difficile. She'll continue this management per medicine.
[2017-01-07 10:57] LABS: Calcium 8.4 mg/dL (8.4-10.2); Potassium 4.9 mmol/L (3.5-5.1)
[2017-01-07 11:42] LABS: Glucose,Whole Blood 90 mg/dL (75-99)
[2017-01-07] MEDS ORDERED: ALPRAZolam 0.25 MG TAB PO PRN (15:04)
[2017-01-07] MEDS ORDERED: NITROGLYCERIN SL TABS 0.4 MG TAB SUBLINGUAL PRN (15:04)
[2017-01-07] MEDS ORDERED: ALBUTEROL NEBULIZED 2.5 MG/3 ML INHALATION PRN (15:08)
[2017-01-07 15:43] LABS: INR 3.4 (<1.1); Prothrombin Time 33.5 sec (9.0-12.0)
[2017-01-07 17:05] LABS: Glucose,Whole Blood 91 mg/dL (75-99)
[2017-01-07] MEDS: BECLOMETHASONE DIP 80 MCG/PUFF INHALER INHALATION SCH (19:25)
[2017-01-07 20:41] LABS: Glucose,Whole Blood 147 mg/dL (75-99)
[2017-01-07] MEDS ORDERED: LEVOFLOXACIN 750MG-D5W PMX 750 MG in DEXTROSE/WATER 1 150ML.BAG IVPB SCH (21:00)
[2017-01-07] MEDS: WARFARIN 1.5 MG TAB PO SCH (21:08)
[2017-01-07] MEDS: CLOPIDOGREL 75 MG TAB PO SCH (21:08)
[2017-01-07] MEDS: METOPROLOL TARTRATE 50 MG TAB PO SCH (21:08)
[2017-01-07] MEDS: PREGABALIN 75 MG CAP PO SCH (21:13)
--- NOTE | 2017-01-07 22:21 | P.CONS ---
History of Present Illness - Reason for Consult Consult date: 01/07/17 - Chief Complaint diarrhea - History of Present Illness 66-year-old female who has a history of significant degenerative joint disease to her left knee underwent a arthroscopic repair to her left knee. She is having difficulty with the knee locking and giving out and causing her to fall at times. Because of this she sought care and had an arthroscopic repair. The goal was to try to get her about a year before she needs a total knee arthroplasty. She is doing well in the postoperative time frame. She however then developed profuse watery diarrhea had many bowel movements at least 10. She developed some left lower quadrant discomfort. She had nausea without emesis and felt very poorly. If she continued to feel more [place] presented emergency center. There she's had evidence of severe dehydration, acute renal failure and hyperkalemia. She received urgent care this feeling slightly better today she actually relates that she feels considerably better than yesterday at this time. She is hungry able to eat she' s had no further profuse diarrhea in the last multiple hours. She is having adequate urinary output. Denies any urinary discomfort or flank pain. She denies fever, chills or rigors. [place] very poorly yesterday and is noted feeling better today. Review of Systems Lida felt very poorly overall yesteHEENT:Denies headache or acute visual change. Denies sinus or mouth discomforts. Denies neck stiffness or pain. Denies significant oral cavity pain. Denies difficulty on swallowing. Lungs: Denies significant shortness of breath, cough, sputum production, or hemoptysis. Cardiovascular: Denies significant shortness of breath, chest pain, chest wall pain, orthopnea, dyspnea on exertion, syncope Gastrointestinal:nausea has improved. Appetite has returned. denies melena or hematochezia. Diarrhea has improved. No hematemesis. Musculoskeletal: denies significant myalgias or arthralgias. No new joint swelling. Denies new back pain. Skin: Denies new rash or lesions. No new ulcers or wounds are related.. Neuro: Denies headache or visual change. Denies any new onset weakness or difficulty with ambulation. Denies falls or seizures. Psychiatric:Denies anxiety or depression. Endocrine: profound fatigue is not improving Past Medical History Past Medical History: Heart Failure, COPD, CVA/TIA, Diabetes Mellitus, Deep Vein Thrombosis (DVT), Hypertension, Myocardial Infarction (GA), Musculoskeletal Disorder (Status post left knee arthroscopy), Osteoarthritis (OA ) Additional Past Medical History / Comment(s): mechanical valve, PT STATED HAD CVA AFFECTED LT SIDE BUT NOW NO RESIDUAL PROBLEMS Last Myocardial Infarction Date:: 1994 History of Any Multi-Drug Resistant Organisms: None Reported Past Surgical History: Cholecystectomy, Coronary Bypass/CABG, Orthopedic Surgery Additional Past Surgical History / Comment(s): lung surgery, left knee surgery Past Anesthesia/Blood Transfusion Reactions: No Reported Reaction Date of Last Stent Placement:: 2004 Past Psychological History: Anxiety Additional Psychological History / Comment(s): . Retired. No international travel. No experience. Pet dog not new. No tobacco or alcohol use at this time Smoking Status: Never smoker - Past Family History Father History Unknown: Yes Mother Family Medical History: Cancer, Hypertension Additional Family Medical History / Comment(s): colon and liver cancer Sister(s) Family Medical History: Cancer Additional Family Medical History / Comment(s): lung cancer Brother(s) Family Medical History: COPD, Coronary Artery Disease (CAD), Diabetes Mellitus Additional Family Medical History / Comment(s): fem pop Medications and Allergies Home Medications and Allergies Comment(s): Current Medications Acetaminophen/Butalbital/Caffeine (Fioricet 50-325-40) 1 each PO Q6H PRN PRN Reason: Headache Albuterol Sulfate (Ventolin Nebulized) 2.5 mg INHALATION RT-QID PRN PRN Reason: Shortness Of Breath Or Wheezing Alprazolam (Xanax) 0.25 mg PO TID PRN PRN Reason: Anxiety Atorvastatin Calcium (Lipitor) 10 mg PO DAILY [facility] Beclomethasone Dipropionate (Qvar) 1 puff INHALATION RT-BID [facility] Last Admin: 01/07/17 19:25 Dose: 1 puff Cholecalciferol (Vitamin D3) 2,000 unit PO DAILY [facility] Clopidogrel Bisulfate (Plavix) 75 mg PO HS [facility] Last Admin: 01/07/17 21:08 Dose: 75 mg Famotidine (Pepcid) 20 mg PO DAILY [facility] Fluticasone Propionate (Flonase Nasal [place]) 1 spray EA NOSTRIL DAILY [facility] Furosemide (Lasix) 40 mg PO DAILY [facility] Levofloxacin 750 mg/ IV (Solution) 150 mls @ 100 mls/hr IVPB [facility] Last Admin: 01/07/17 21:09 Dose: 100 mls/hr Sodium Chloride (Saline 0.45%) 1,000 mls @ 120 mls/hr IV .Q8H20M [facility] Last Admin: 01/07/17 16:44 Dose: 120 mls/hr Lisinopril (Zestril) 20 mg PO DAILY [facility] Metoprolol Tartrate (Lopressor) 50 mg PO BID [facility] Last Admin: 01/07/17 21:08 Dose: 50 mg Metronidazole (Flagyl) 500 mg PO QID [facility] Last Admin: 01/07/17 21:28 Dose: 500 mg Morphine Sulfate (Morphine Sulfate (Inj)) 4 mg IV Q4HR PRN PRN Reason: Severe Pain Last Admin: 01/07/17 21:08 Dose: 4 mg Naloxone HCl (Narcan) 0.2 mg IV Q2M PRN PRN Reason: Opioid Reversal Nitroglycerin (Nitrostat) 0.4 mg SUBLINGUAL Q5M PRN PRN Reason: Angina Pantoprazole Sodium (Protonix) 40 mg IV DAILY [facility] Last Admin: 01/07/17 08:24 Dose: 40 mg Pregabalin (Lyrica) 75 mg PO BID [facility] Last Admin: 01/07/17 21:13 Dose: 75 mg Ropinirole HCl (Requip) 0.25 mg PO [facility] Last Admin: 01/07/17 21:08 Dose: 0.25 mg Sodium Bicarbonate (Sodium Bicarbonate Tab) 650 mg PO TID [facility] Last Admin: 01/07/17 21:08 Dose: 650 mg Spironolactone (Aldactone) 25 mg PO DAILY [facility] Warfarin Sodium (Coumadin) 1.5 mg PO [facility] Last Admin: 01/07/17 21:08 Dose: 1.5 mg Home Medications Medication Instructions Recorded Confirmed Type ALPRAZolam [Xanax] 0.25 mg PO TID PRN 05/17/14 01/06/17 History Acetaminophen-Codeine 300-30mg 1 tab PO BID PRN 05/17/14 01/06/17 History [Tylenol w/codeine #3] Albuterol Inhaler [Ventolin Hfa 2 puff INHALATION RT-QID PRN 05/17/14 01/06/17 History Inhaler] Cholecalciferol [Vitamin D3] 2,000 unit PO DAILY 05/17/14 01/06/17 History Famotidine [Pepcid] 20 mg PO DAILY 05/17/14 01/06/17 History Furosemide [Lasix] 40 mg PO DAILY 05/17/14 01/06/17 History Metoprolol Tartrate [Lopressor] 50 mg PO BID 05/17/14 01/06/17 History Potassium Chloride [K-Tab ER] 10 meq PO BID 05/17/14 01/06/17 History Pregabalin [Lyrica] 75 mg PO BID 05/17/14 01/06/17 History Simvastatin [Zocor] 20 mg PO DAILY 05/17/14 01/06/17 History Spironolactone [Aldactone] 25 mg PO DAILY 05/17/14 01/06/17 History Warfarin [Coumadin] 1.5 mg PO HS 06/28/15 01/06/17 History Beclomethasone Dipropionate [Qvar 1 puff INHALATION RT-BID 06/29/15 01/06/17 History 80 mcg/puff] Benazepril HCl [Lotensin] 20 mg PO DAILY 06/29/15 01/06/17 History Butalb/APAP/Caff 50-325-40Mg 1 tab PO Q6H PRN 06/29/15 01/06/17 History [Fioricet 50-325-40] Fluticasone Nasal [place] [Flonase 1 spray EA NOSTRIL DAILY 06/29/15 01/06/17 History Nasal [place]] Nitroglycerin Sl Tabs [Nitrostat] 0.4 mg SUBLINGUAL Q5M PRN 06/29/15 01/06/17 History Omeprazole [PriLOSEC] 20 mg PO DAILY 06/29/15 01/06/17 History rOPINIRole HCL [Requip] 0.25 mg PO HS 06/29/15 01/06/17 History Clopidogrel [Plavix] 75 mg PO HS 01/06/17 01/06/17 History HYDROcodone/APAP 5-325MG [[place] 5 mg PO BID PRN 01/06/17 01/06/17 History 5-325] Allergies Allergy/AdvReac Type Severity Reaction Status Date / Time aspirin Allergy Unknown Verified 01/06/17 19:52 surgical tape AdvReac Unknown Uncoded 01/06/17 19:13 Physical Exam Vitals: Vital Signs Temp Pulse Pulse Pulse Resp BP BP 01/07/17 15:00 98.4 F 67 16 01/07/17 07:00 97.2 F L 66 20 01/06/17 23:30 97.1 F L 60 18 109/46 01/06/17 22:36 56 L 16 102/84 01/06/17 22:15 97.9 F 59 L 18 93/53 BP Pulse Ox 01/07/17 15:00 135/63 95 01/07/17 07:00 97/46 94 L 01/06/17 23:30 96 01/06/17 22:36 98 01/06/17 22:15 98 Intake and Output 01/07/17 01/07/17 01/07/17 06:59 14:59 22:59 Intake Total 300 Balance 300 Intake: Oral 300 Other: Voiding Method Toilet Toilet Toilet Bedside Commode Bedside Commode Bedside Commode # Voids 1 4 Weight 74.5 kg HEENT: Anicteric conjunctiva are pink and moist nasal mucosa grossly intact without significant lesions, there is no thrush. Neck: The neck is supple without significant lymphadenopathy or thyromegaly. Lungs: Good bilateral air entry without significant crackles or wheezing. There is no significant bronchial sounds. There is no egophony or dullness. Heart: Regular rate and rhythm with an audible S1-S2, no S3 no S4. There is no significant murmur click or rub, PMI was nondisplaced. Abdomen: Positive bowel sounds soft awith evidence of left lower quadrant There however is no guarding or rebound Extremities: The upper extremities have excellent pulses they are symmetric, no significant petechiae or telangiectasia. No splinter hemorrhages were noted. The lower extremities are free from significant edema. The peripheral pulses were 2+ and symmetric. Neuro: Awake alert oriented to person place and time. There are no acute new gross focal sensory motor deficits. Results CBC & Chem 7: 01/06/17 19:30 01/07/17 08:25 Labs: Abnormal Lab Results - Last 24 Hours (Table) 01/06/17 01/06/17 01/07/17 Range/Units 19:30 23:15 07:07 PT (9.0-12.0) sec Chloride (98-107) mmol/L Carbon Dioxide (22-30) mmol/L BUN (7-17) mg/dL Creatinine 5.80 H* (0.52-1.04) mg/dL Glucose (74-99) mg/dL POC Glucose (mg/dL) 106 H (75-99) mg/dL Urine Protein Trace H (Negative) 01/07/17 01/07/17 01/07/17 Range/Units 08:25 15:26 20:34 PT 33.5 H (9.0-12.0) sec Chloride 112 H (98-107) mmol/L Carbon Dioxide 15 L (22-30) mmol/L BUN 62 H (7-17) mg/dL Creatinine 2.81 H (0.52-1.04) mg/dL Glucose 179 H (74-99) mg/dL POC Glucose (mg/dL) 147 H (75-99) mg/dL Urine Protein (Negative) Laboratory Results WBC 17.4 k/uL (3.8-10.6) H 01/06/17 19:30 RBC 3.87 m/uL (3.80-5.40) 01/06/17 19:30 Hgb 12.2 gm/dL (11.4-16.0) 01/06/17 19:30 Hct 35.4 % (34.0-46.0) 01/06/17 19:30 MCV 91.6 fL (80.0-100.0) 01/06/17 19:30 MCH 31.6 pg (25.0-35.0) 01/06/17 19:30 MCHC 34.5 g/dL (31.0-37.0) 01/06/17 19:30 RDW 13.9 % (11.5-15.5) 01/06/17 19:30 Plt Count 230 k/uL (150-450) 01/06/17 19:30 Neutrophils % 84 % 01/06/17 19:30 Lymphocytes % 8 % 01/06/17 19:30 Monocytes % 4 % 01/06/17 19:30 Eosinophils % 1 % 01/06/17 19:30 Basophils % 1 % 01/06/17 19:30 Neutrophils # 14.6 k/uL (1.3-7.7) H 01/06/17 19:30 Lymphocytes # 1.4 k/uL (1.0-4.8) 01/06/17 19:30 Monocytes # 0.7 k/uL (0-1.0) 01/06/17 19:30 Eosinophils # 0.1 k/uL (0-0.7) 01/06/17 19:30 Basophils # 0.1 k/uL (0-0.2) 01/06/17 19:30 PT 33.5 sec (9.0-12.0) H 01/07/17 15:26 INR 3.4 (<1.1) 01/07/17 15:26 APTT 35.9 sec (22.0-30.0) H 01/06/17 19:30 Sodium 142 mmol/L (137-145) 01/07/17 08:25 Potassium 4.9 mmol/L (3.5-5.1) 01/07/17 08:25 Chloride 112 mmol/L (98-107) H 01/07/17 08:25 Carbon Dioxide 15 mmol/L (22-30) L 01/07/17 08:25 Anion Gap 15 mmol/L 01/07/17 08:25 BUN 62 mg/dL (7-17) H 01/07/17 08:25 Creatinine 2.81 mg/dL (0.52-1.04) H 01/07/17 08:25 Est GFR (MDRD) Af Amer 20 (>60 ml/min/1.73 sqM) 01/07/17 08:25 Est GFR (MDRD) Non-Af 17 (>60 ml/min/1.73 sqM) 01/07/17 08:25 Glucose 179 mg/dL (74-99) H 01/07/17 08:25 POC Glucose (mg/dL) 147 mg/dL (75-99) H 01/07/17 20:34 POC Glu Used [employer] Worker ID Vanessa Alvarez 01/07/17 20:34 Calcium 8.4 mg/dL (8.4-10.2) 01/07/17 08:25 Magnesium 2.2 mg/dL (1.6-2.3) 01/06/17 19:30 Total Bilirubin 0.4 mg/dL (0.2-1.3) 01/06/17 19:30 AST 21 U/L (14-36) 01/06/17 19:30 ALT 33 U/L (9-52) 01/06/17 19:30 Alkaline Phosphatase 91 U/L (38-126) 01/06/17 19:30 Total Creatine Kinase 75 U/L (30-135) 01/06/17 19:30 CK-MB (CK-2) 0.8 ng/mL (0.0-2.4) 01/06/17 19:30 CK-MB (CK-2) Rel Index 1.1 01/06/17 19:30 Troponin I 0.017 ng/mL (0.000-0.034) 01/06/17 19:30 Total Protein 6.7 g/dL (6.3-8.2) 01/06/17 19:30 Albumin 4.1 g/dL (3.5-5.0) 01/06/17 19:30 TSH 4.080 mIU/L (0.465-4.680) 01/06/17 19:30 Free T4 0.92 ng/dL (0.78-2.19) 01/06/17 19:30 Free T3 pg/mL 3.1 pg/ml (2.8-5.3) 01/06/17 19:30 Urine Color Yellow 01/06/17 23:15 Urine Appearance Clear (Clear) 01/06/17 23:15 Urine pH 5.0 (5.0-8.0) 01/06/17 23:15 Ur Specific [place] 1.011 (1.001-1.035) 01/06/17 23:15 Urine Protein Trace (Negative) H 01/06/17 23:15 Urine Glucose (UA) Negative (Negative) 01/06/17 23:15 Urine Ketones Negative (Negative) 01/06/17 23:15 Urine Blood Negative (Negative) 01/06/17 23:15 Urine Nitrite Negative (Negative) 01/06/17 23:15 Urine Bilirubin Negative (Negative) 01/06/17 23:15 Urine Urobilinogen <2.0 mg/dL (<2.0) 01/06/17 23:15 Ur Leukocyte Esterase Negative (Negative) 01/06/17 23:15 Assessment and Plan (1) Acute renal failure (ARF) Status: Acute (2) Diarrhea Narrative/Plan: 66-year-old female presents to Hospital feeling very poorly. She has a history of the recent left knee arthroscopic repair. The knee is been doing quite well. He has no evidence of minimal bruising to the area there is no erythema, crepitance. There is no warmth. The site does not appear to be infected. The patient hour developed profuse diarrhea. Concerns to Clostridium difficile colitis. Stool samples are pending at this time. Antibiotic therapy to be streamlined just metronidazole. The patient has had imaging of her abdomen earlier because of some abdominal pain. No resume diverticulitis was noted. Consequently metronidazole as sole therapy for presumptive C. diff colitis is being utilized. The patient is a already showing significant improvement as she has been hydrated it's improving her acute renal failure. Hyperkalemia was treated with Kayexalate. Has not she's feeling somewhat better. Cultures are in process and antibiotics will be adjusted as indicated. leukocytosis appears record related Stools that his are in process the acute renal failure appears to be the basis of the diarrhea and use of aldactone and lisinopril. These medications are held. Status: Acute
[2017-01-08] MEDS: SODIUM CHLORIDE 0.45% 1,000 ML IV SCH ×2 (01:06→09:40)
[2017-01-08 07:33] LABS: Glucose,Whole Blood 141 mg/dL (75-99)
[2017-01-08] MEDS: FLUTICASONE 50MCG/SPRAY NASAL 16GM EA NOSTRIL SCH (08:17)
[2017-01-08] MEDS: CHOLECALCIFEROL 1,000 UNIT TAB PO SCH (08:17)
[2017-01-08] MEDS: LISINOPRIL 20 MG TAB PO SCH (08:17)
[2017-01-08] MEDS: FUROSEMIDE 40 MG TAB PO SCH (08:17)
[2017-01-08] MEDS: ATORVASTATIN 10 MG TAB PO SCH (08:17)
[2017-01-08] MEDS: METOPROLOL TARTRATE 50 MG TAB PO SCH ×2 (08:18→23:37)
[2017-01-08] MEDS: SODIUM BICARBONATE TAB 650 MG TAB PO SCH ×3 (08:18→21:38)
[2017-01-08] MEDS: SPIRONOLACTONE 25 MG TAB PO SCH (08:18)
[2017-01-08] MEDS: metroNIDAZOLE 500 MG TAB PO SCH ×4 (08:18→21:38)
[2017-01-08] MEDS: PANTOPRAZOLE 40 MG/10 ML VIAL IV SCH (08:19)
[2017-01-08] MEDS: BECLOMETHASONE DIP 80 MCG/PUFF INHALER INHALATION SCH ×2 (08:20→19:55)
[2017-01-08] MEDS: PREGABALIN 75 MG CAP PO SCH ×2 (08:22→21:38)
[2017-01-08] MEDS ORDERED: FAMOTIDINE 20 MG TAB PO SCH (09:00)
--- NOTE | 2017-01-08 09:42 | P.PN ---
Subjective Patient is seen in follow-up for acute kidney injury. Her creatinine in November 2016 was 1.08. It was elevated at 5.8 this admission and was down to 2.8 is yesterday. Patient presented with diarrhea which she states is now mostly resolved. Oral and intake is good. Denies vomiting. Denies any chest pain or shortness of breath. Admits to good urine output. No hematuria or dysuria. Vital signs are stable. General: The patient appeared well nourished and normally developed. HEENT: Head exam is unremarkable. Neck is without jugular venous distension. LUNGS: Lungs are clear to auscultation and percussion. Breath sounds decreased. HEART: Rate and Rhythm are regular. First and second heart sounds normal. No murmurs, rubs or gallops. ABDOMEN: Abdominal exam reveals normal bowel sounds. Non-tender and non- distended. No evidence of peritonitis. EXTREMITITES: No clubbing, cyanosis, or edema. Objective - Vital Signs Vital signs: Vital Signs Temp 96.8 F L 01/08/17 07:00 Pulse 57 L 01/08/17 07:00 Resp 18 01/08/17 07:00 BP 117/62 01/08/17 07:00 Pulse Ox 94 L 01/08/17 07:00 Intake & Output 01/07/17 01/08/17 01/08/17 18:59 06:59 18:59 Intake Total 950 Balance 950 Weight 74.5 kg Intake: Oral 950 Other: Voiding Method Toilet Bedside Commode # Voids 4 3 - Labs CBC & Chem 7: 01/06/17 19:30 01/07/17 08:25 Labs: Abnormal Lab Results - Last 24 Hours (Table) 01/07/17 01/07/17 01/07/17 Range/Units 08:25 15:26 20:34 PT 33.5 H (9.0-12.0) sec Chloride 112 H (98-107) mmol/L Carbon Dioxide 15 L (22-30) mmol/L BUN 62 H (7-17) mg/dL Creatinine 2.81 H (0.52-1.04) mg/dL Glucose 179 H (74-99) mg/dL POC Glucose (mg/dL) 147 H (75-99) mg/dL 01/08/17 Range/Units 07:30 PT (9.0-12.0) sec Chloride (98-107) mmol/L Carbon Dioxide (22-30) mmol/L BUN (7-17) mg/dL Creatinine (0.52-1.04) mg/dL Glucose (74-99) mg/dL POC Glucose (mg/dL) 141 H (75-99) mg/dL Microbiology - Last 24 Hours (Table) 01/07/17 16:10 Stool for WBCs - Final Stool 01/06/17 19:30 Blood Culture - Preliminary Blood No Growth after 24 hours 01/07/17 16:10 Stool Culture - Preliminary Stool Assessment and Plan Plan: Assessment: #1. Nonoliguric acute kidney injury mostly prerenal in nature secondary to diarrhea. Rettman was 5.8 on admission and down to 2.8 as of yesterday. Labs from today are pending at this time. Urinalysis quite benign. #2. Metabolic acidosis secondary to acute kidney injury as well as diarrhea. #3. Benign hypertension. Controlled. #4. Diarrhea. Rule out C. diff. Plan: I will change the IV fluids to normal saline at 50 mL an hour. Encourage oral intake. Antibiotics per infectious disease recommendations. Avoid nephrotoxic agents and hypotensive episodes. Maintain oral sodium bicarbonate supplementation. Check electrolytes in the morning.
[2017-01-08] MEDS: SODIUM CHLORIDE 0.9% 1,000 ML IV SCH (10:41)
--- NOTE | 2017-01-08 12:06 | P.PN ---
Subjective Principal diagnosis: acute gastroenteritis Dehydration Acute renal failure continues with dark urine and diarrhea is less,appetite improving Objective - Vital Signs Vital signs: Vital Signs Temp 96.8 F L 01/08/17 07:00 Pulse 57 L 01/08/17 07:00 Resp 18 01/08/17 07:00 BP 117/62 01/08/17 07:00 Pulse Ox 94 L 01/08/17 07:00 Intake & Output 01/07/17 01/08/17 01/08/17 18:59 06:59 18:59 Intake Total 950 Balance 950 Weight 74.5 kg Intake: Oral 950 Other: Voiding Method Toilet Bedside Commode # Voids 4 3 - Respiratory Respiratory: bilateral: CTA - Cardiovascular Rhythm: regular Heart sounds: normal: S1, S2 - Gastrointestinal General gastrointestinal: Present: normal bowel sounds, soft - Labs CBC & Chem 7: 01/06/17 19:30 01/07/17 08:25 Labs: Abnormal Lab Results - Last 24 Hours (Table) 01/07/17 01/07/17 01/08/17 Range/Units 15:26 20:34 07:30 PT 33.5 H (9.0-12.0) sec POC Glucose (mg/dL) 147 H 141 H (75-99) mg/dL Microbiology - Last 24 Hours (Table) 01/07/17 16:10 Stool for WBCs - Final Stool 01/06/17 19:30 Blood Culture - Preliminary Blood No Growth after 24 hours 01/07/17 16:10 Stool Culture - Preliminary Stool Assessment and Plan (1) Acute renal failure (ARF) Status: Acute (2) Diarrhea Status: Acute (3) Fever, unknown origin Status: Acute Plan: aggressive hydration and follow renal function,advance diet
[2017-01-08 12:12] LABS: Glucose,Whole Blood 96 mg/dL (75-99)
[2017-01-08 12:33] LABS: Basophils # (A) 0.1 k/uL (0-0.2); Basophils % (A) 1 %; CH 31.1; CHCM 34.4; Eosinophils # (A) 0.2 k/uL (0-0.7); Eosinophils % (A) 2 %; HCT 34.2 % (34.0-46.0); HDW 2.99; HGB 11.8 gm/dL (11.4-16.0); Luc # (Auto) 0.26; Luc % (Auto) 3; Lymphocytes % (A) 12 %; MCH 31.4 pg (25.0-35.0); MCHC 34.6 g/dL (31.0-37.0); MCV 90.8 fL (80.0-100.0); Mean Platelet Volume 9.6; Monocytes # (A) 0.4 k/uL (0-1.0); Monocytes % (A) 5 %; Neutrophils # (A) 6.7 k/uL (1.3-7.7); Neutrophils % (A) 78 %; RBC 3.77 m/uL (3.80-5.40); RDW 13.6 % (11.5-15.5); WBC 8.6 k/uL (3.8-10.6); WBC (Perox) 9.02
[2017-01-08 12:55] LABS: Potassium 4.5 mmol/L (3.5-5.1); Total Bilirubin 0.7 mg/dL (0.2-1.3); Total Protein 6.9 g/dL (6.3-8.2)
[2017-01-08] MEDS: BUTALB/APAP/CAFF 50-325-40MG TAB PO PRN (15:09)
[2017-01-08 17:11] LABS: Glucose,Whole Blood 130 mg/dL (75-99)
[2017-01-08] MEDS ORDERED: MAG HYDROX/AL HYDROX/SIMETH 30 ML CUP PO PRN (18:45)
[2017-01-08] MEDS: MORPHINE SULFATE 4 MG/ML SYRINGE IV PRN (19:56)
[2017-01-08 21:08] LABS: Glucose,Whole Blood 115 mg/dL (75-99)
[2017-01-08] MEDS: CLOPIDOGREL 75 MG TAB PO SCH (21:38)
[2017-01-08] MEDS: WARFARIN 1.5 MG TAB PO SCH (21:38)
--- NOTE | 2017-01-08 22:09 | P.PN ---
Subjective Principal diagnosis: sepsis 66-year-old female who has a history of significant degenerative joint disease to her left knee underwent a arthroscopic repair to her left knee. She is having difficulty with the knee locking and giving out and causing her to fall at times. Because of this she sought care and had an arthroscopic repair. The goal was to try to get her about a year before she needs a total knee arthroplasty. She is doing well in the postoperative time frame. She however then developed profuse watery diarrhea had many bowel movements at least 10. She developed some left lower quadrant discomfort. She had nausea without emesis and felt very poorly. If she continued to feel more [place] presented emergency center. There she's had evidence of severe dehydration, acute renal failure and hyperkalemia. She received urgent care this feeling slightly better today she actually relates that she feels considerably better than yesterday at this time. She is hungry able to eat she' s had no further profuse diarrhea in the last multiple hours. She is having adequate urinary output. Denies any urinary discomfort or flank pain. She denies fever, chills or rigors. [place] very poorly yesterday and is noted to be feeling better today. Objective - Vital Signs Vital signs: Vital Signs Temp 98.4 F 01/08/17 15:00 Pulse 65 01/08/17 21:36 Resp 16 01/08/17 15:00 BP 123/57 01/08/17 21:36 Pulse Ox 97 01/08/17 15:00 Intake & Output 01/08/17 01/08/17 01/09/17 06:59 18:59 06:59 Intake Total 950 Balance 950 Weight 74.5 kg Intake: Oral 950 Other: # Voids 3 3 - Exam HEENT: Anicteric conjunctiva are pink and moist nasal mucosa grossly intact without significant lesions, there is no thrush. Neck: The neck is supple without significant lymphadenopathy or thyromegaly. Lungs: Good bilateral air entry without significant crackles or wheezing. There is no significant bronchial sounds. There is no egophony or dullness. Heart: Regular rate and rhythm with an audible S1-S2, no S3 no S4. There is no significant murmur click or rub, PMI was nondisplaced. Abdomen: Positive bowel sounds soft awith evidence of left lower quadrant There however is no guarding or rebound Extremities: The upper extremities have excellent pulses they are symmetric, no significant petechiae or telangiectasia. No splinter hemorrhages were noted. The lower extremities are free from significant edema. The peripheral pulses were 2+ and symmetric. Neuro: Awake alert oriented to person place and time. There are no acute new gross focal sensory motor deficits. - Labs CBC & Chem 7: 01/08/17 12:11 01/08/17 12:11 Labs: Abnormal Lab Results - Last 24 Hours (Table) 01/08/17 01/08/17 01/08/17 Range/Units 07:30 12:11 12:11 RBC 3.77 L (3.80-5.40) m/uL BUN 34 H (7-17) mg/dL Creatinine 1.48 H (0.52-1.04) mg/dL POC Glucose (mg/dL) 141 H (75-99) mg/dL 01/08/17 01/08/17 Range/Units 17:06 21:05 RBC (3.80-5.40) m/uL BUN (7-17) mg/dL Creatinine (0.52-1.04) mg/dL POC Glucose (mg/dL) 130 H 115 H (75-99) mg/dL Microbiology - Last 24 Hours (Table) 01/07/17 16:10 Stool for WBCs - Final Stool 01/06/17 19:30 Blood Culture - Preliminary Blood No Growth after 24 hours 01/07/17 16:10 Stool Culture - Preliminary Stool Laboratory Results WBC 8.6 k/uL (3.8-10.6) 01/08/17 12:11 RBC 3.77 m/uL (3.80-5.40) L 01/08/17 12:11 Hgb 11.8 gm/dL (11.4-16.0) 01/08/17 12:11 Hct 34.2 % (34.0-46.0) 01/08/17 12:11 MCV 90.8 fL (80.0-100.0) 01/08/17 12:11 MCH 31.4 pg (25.0-35.0) 01/08/17 12:11 MCHC 34.6 g/dL (31.0-37.0) 01/08/17 12:11 RDW 13.6 % (11.5-15.5) 01/08/17 12:11 Plt Count 174 k/uL (150-450) 01/08/17 12:11 Neutrophils % 78 % 01/08/17 12:11 Lymphocytes % 12 % 01/08/17 12:11 Monocytes % 5 % 01/08/17 12:11 Eosinophils % 2 % 01/08/17 12:11 Basophils % 1 % 01/08/17 12:11 Neutrophils # 6.7 k/uL (1.3-7.7) 01/08/17 12:11 Lymphocytes # 1.0 k/uL (1.0-4.8) 01/08/17 12:11 Monocytes # 0.4 k/uL (0-1.0) 01/08/17 12:11 Eosinophils # 0.2 k/uL (0-0.7) 01/08/17 12:11 Basophils # 0.1 k/uL (0-0.2) 01/08/17 12:11 PT 33.5 sec (9.0-12.0) H 01/07/17 15:26 INR 3.4 (<1.1) 01/07/17 15:26 APTT 35.9 sec (22.0-30.0) H 01/06/17 19:30 Sodium 140 mmol/L (137-145) 01/08/17 12:11 Potassium 4.5 mmol/L (3.5-5.1) 01/08/17 12:11 Chloride 103 mmol/L (98-107) 01/08/17 12:11 Carbon Dioxide 26 mmol/L (22-30) 01/08/17 12:11 Anion Gap 11 mmol/L 01/08/17 12:11 BUN 34 mg/dL (7-17) H 01/08/17 12:11 Creatinine 1.48 mg/dL (0.52-1.04) H 01/08/17 12:11 Est GFR (MDRD) Af Amer 43 (>60 ml/min/1.73 sqM) 01/08/17 12:11 Est GFR (MDRD) Non-Af 35 (>60 ml/min/1.73 sqM) 01/08/17 12:11 Glucose 99 mg/dL (74-99) 01/08/17 12:11 POC Glucose (mg/dL) 115 mg/dL (75-99) H 01/08/17 21:05 POC Glu [employer] Research Technician ID Yolande Estes 01/08/17 21:05 Calcium 9.0 mg/dL (8.4-10.2) 01/08/17 12:11 Magnesium 2.2 mg/dL (1.6-2.3) 01/06/17 19:30 Total Bilirubin 0.7 mg/dL (0.2-1.3) 01/08/17 12:11 AST 19 U/L (14-36) 01/08/17 12:11 ALT 26 U/L (9-52) 01/08/17 12:11 Alkaline Phosphatase 78 U/L (38-126) 01/08/17 12:11 Total Creatine Kinase 75 U/L (30-135) 01/06/17 19:30 CK-MB (CK-2) 0.8 ng/mL (0.0-2.4) 01/06/17 19:30 CK-MB (CK-2) Rel Index 1.1 01/06/17 19:30 Troponin I 0.017 ng/mL (0.000-0.034) 01/06/17 19:30 Total Protein 6.9 g/dL (6.3-8.2) 01/08/17 12:11 Albumin 3.9 g/dL (3.5-5.0) 01/08/17 12:11 TSH 4.080 mIU/L (0.465-4.680) 01/06/17 19:30 Free T4 0.92 ng/dL (0.78-2.19) 01/06/17 19:30 Free T3 pg/mL 3.1 pg/ml (2.8-5.3) 01/06/17 19:30 Urine Color Yellow 01/06/17 23:15 Urine Appearance Clear (Clear) 01/06/17 23:15 Urine pH 5.0 (5.0-8.0) 01/06/17 23:15 Ur Specific [place] 1.011 (1.001-1.035) 01/06/17 23:15 Urine Protein Trace (Negative) H 01/06/17 23:15 Urine Glucose (UA) Negative (Negative) 01/06/17 23:15 Urine Ketones Negative (Negative) 01/06/17 23:15 Urine Blood Negative (Negative) 01/06/17 23:15 Urine Nitrite Negative (Negative) 01/06/17 23:15 Urine Bilirubin Negative (Negative) 01/06/17 23:15 Urine Urobilinogen <2.0 mg/dL (<2.0) 01/06/17 23:15 Ur Leukocyte Esterase Negative (Negative) 01/06/17 23:15 Microbiology 01/07/17 16:10 Stool Stool for WBCs - Final 01/06/17 19:30 Blood Blood Culture - Preliminary No Growth after 24 hours 01/07/17 16:10 Stool Stool Culture - Preliminary Assessment and Plan (1) Acute renal failure (ARF) Status: Acute (2) Diarrhea Narrative/Plan: 66-year-old female presents to Hospital feeling very poorly. She has a history of the recent left knee arthroscopic repair. The knee is been doing quite well. He has no evidence of minimal bruising to the area there is no erythema, crepitance. There is no warmth. The site does not appear to be infected. The patient hour developed profuse diarrhea. Concerns to Clostridium difficile colitis. Stool samples are pending at this time. Antibiotic therapy to be streamlined just metronidazole. The patient has had imaging of her abdomen earlier because of some abdominal pain. No resume diverticulitis was noted. Consequently metronidazole as sole therapy for presumptive C. diff colitis is being utilized. The patient is a already showing significant improvement as she has been hydrated it's improving her acute renal failure. Hyperkalemia was treated with Kayexalate. Has not she's feeling somewhat better. Cultures are in process and antibiotics will be adjusted as indicated. leukocytosis appears record related Stools that his are in process the acute renal failure appears to be the basis of the diarrhea and use of aldactone and lisinopril. These medications are held.improving today Current Visit: Yes Status: Acute
[2017-01-09] MEDS: SODIUM CHLORIDE 0.9% 1,000 ML IV SCH (06:19)
[2017-01-09 07:17] LABS: Glucose,Whole Blood 105 mg/dL (75-99)
[2017-01-09] MEDS ORDERED: PANTOPRAZOLE 40 MG TABLET PO SCH (07:30)
[2017-01-09] MEDS: BECLOMETHASONE DIP 80 MCG/PUFF INHALER INHALATION SCH (07:48)
[2017-01-09 08:23] VITALS: BP 134/64; PULSE 55; RESP 16; TEMP 96.4
[2017-01-09] MEDS: LISINOPRIL 20 MG TAB PO SCH (08:24)
[2017-01-09] MEDS: SPIRONOLACTONE 25 MG TAB PO SCH (08:24)
[2017-01-09] MEDS: METOPROLOL TARTRATE 50 MG TAB PO SCH (08:24)
[2017-01-09] MEDS: CHOLECALCIFEROL 1,000 UNIT TAB PO SCH (08:24)
[2017-01-09] MEDS: metroNIDAZOLE 500 MG TAB PO SCH (08:24)
[2017-01-09] MEDS: ATORVASTATIN 10 MG TAB PO SCH (08:24)
[2017-01-09] MEDS: PREGABALIN 75 MG CAP PO SCH (08:24)
[2017-01-09] MEDS: SODIUM BICARBONATE TAB 650 MG TAB PO SCH (08:24)
[2017-01-09] MEDS: FUROSEMIDE 40 MG TAB PO SCH (08:24)
[2017-01-09] MEDS: FLUTICASONE 50MCG/SPRAY NASAL 16GM EA NOSTRIL SCH (08:25)
[2017-01-09] MEDS: BUTALB/APAP/CAFF 50-325-40MG TAB PO PRN (08:28)
--- NOTE | 2017-01-09 08:54 | P.PN ---
Subjective Patient is seen in follow-up for acute kidney injury. Her creatinine in November 2016 was 1.08. It was elevated at 5.8 this admission and was down to 1.48 as of yesterday. Patient presented with diarrhea which she states is now resolved. Oral and intake is good. Denies vomiting. Denies any chest pain or shortness of breath. Admits to good urine output. No hematuria or dysuria. Vital signs are stable. General: The patient appeared well nourished and normally developed. HEENT: Head exam is unremarkable. Neck is without jugular venous distension. LUNGS: Lungs are clear to auscultation and percussion. Breath sounds decreased. HEART: Rate and Rhythm are regular. First and second heart sounds normal. No murmurs, rubs or gallops. ABDOMEN: Abdominal exam reveals normal bowel sounds. Non-tender and non- distended. No evidence of peritonitis. EXTREMITITES: No clubbing, cyanosis, or edema. Objective - Vital Signs Vital signs: Vital Signs Temp 96.4 F L 01/09/17 07:00 Pulse 55 L 01/09/17 07:00 Resp 16 01/09/17 07:00 BP 134/64 01/09/17 07:00 Pulse Ox 97 01/09/17 07:00 Intake & Output 01/08/17 01/09/17 01/09/17 18:59 06:59 18:59 Weight 74.5 kg Other: Voiding Method Toilet # Voids 3 0 # Bowel Movements 0 - Labs CBC & Chem 7: 01/08/17 12:11 01/08/17 12:11 Labs: Abnormal Lab Results - Last 24 Hours (Table) 01/08/17 01/08/17 01/08/17 Range/Units 12:11 12:11 17:06 RBC 3.77 L (3.80-5.40) m/uL BUN 34 H (7-17) mg/dL Creatinine 1.48 H (0.52-1.04) mg/dL POC Glucose (mg/dL) 130 H (75-99) mg/dL 01/08/17 01/09/17 Range/Units 21:05 07:15 RBC (3.80-5.40) m/uL BUN (7-17) mg/dL Creatinine (0.52-1.04) mg/dL POC Glucose (mg/dL) 115 H 105 H (75-99) mg/dL Microbiology - Last 24 Hours (Table) 01/06/17 19:30 Blood Culture - Preliminary Blood No Growth after 48 hours Assessment and Plan Plan: Assessment: #1. Nonoliguric acute kidney injury mostly prerenal in nature secondary to diarrhea. [place] was 5.8 on admission and down to 1.48 as of yesterday. Labs from today are pending at this time. Urinalysis quite benign. #2. Metabolic acidosis secondary to acute kidney injury as well as diarrhea. Resolved. #3. Benign hypertension. Controlled. #4. Diarrhea. Rule out C. diff. Plan: Continue normal saline at 50 mL an hour. Encourage oral intake. Antibiotics per infectious disease recommendations. Avoid nephrotoxic agents and hypotensive episodes. Discontinue sodium bicarbonate supplementation. Stable to be discharged home from nephrology standpoint.
--- NOTE | 2017-01-09 12:29 | P.DS ---
Providers Date of admission: 01/06/17 21:25 Attending physician: Antione Cook Consults: 01/06/17 21:08 Consult Physician Urgent Consulting Provider: Blu Phelan Consult Reason/Comments: diarrhea Do you want consulting provider notified?: Yes 01/06/17 21:09 Consult Physician Urgent Consulting Provider: Dayana Mohamud Consult Reason/Comments: arf Do you want consulting provider notified?: Yes Primary care physician: Antione Cook - Discharge Diagnosis(es) (1) Acute renal failure (ARF) Status: Acute (2) Diarrhea Status: Acute (3) Fever, unknown origin Status: Acute Patient Condition at Discharge: Serious Plan - Discharge Summary New Discharge Prescriptions: New metroNIDAZOLE [Flagyl] 500 mg PO Q6HR #16 tab No Action Spironolactone [Aldactone] 25 mg PO DAILY Simvastatin [Zocor] 20 mg PO DAILY Pregabalin [Lyrica] 75 mg PO BID Potassium Chloride [K-Tab ER] 10 meq PO BID Metoprolol Tartrate [Lopressor] 50 mg PO BID Furosemide [Lasix] 40 mg PO DAILY Famotidine [Pepcid] 20 mg PO DAILY Cholecalciferol [Vitamin D3] 2,000 unit PO DAILY Albuterol Inhaler [Ventolin Hfa Inhaler] 2 puff INHALATION RT-QID PRN PRN Reason: Shortness Of Breath Or Wheezing ALPRAZolam [Xanax] 0.25 mg PO TID PRN PRN Reason: Anxiety Acetaminophen-Codeine 300-30mg [Tylenol w/codeine #3] 1 tab PO BID PRN PRN Reason: Pain Warfarin [Coumadin] 1.5 mg PO HS rOPINIRole HCL [Requip] 0.25 mg PO HS Beclomethasone Dipropionate [Qvar 80 mcg/puff] 1 puff INHALATION RT-BID Omeprazole [PriLOSEC] 20 mg PO DAILY Nitroglycerin Sl Tabs [Nitrostat] 0.4 mg SUBLINGUAL Q5M PRN PRN Reason: Angina Fluticasone Nasal [place] [Flonase Nasal [place]] 1 spray EA NOSTRIL DAILY Benazepril HCl [Lotensin] 20 mg PO DAILY Butalb/APAP/Caff 50-325-40Mg [Fioricet 50-325-40] 1 tab PO Q6H PRN PRN Reason: Headache Clopidogrel [Plavix] 75 mg PO HS HYDROcodone/APAP 5-325MG [[place] 5-325] 5 mg PO BID PRN PRN Reason: Moderate Pain Discharge Medication List ALPRAZolam [Xanax] 0.25 mg PO TID PRN 05/17/14 [History] Acetaminophen-Codeine 300-30mg [Tylenol w/codeine #3] 1 tab PO BID PRN 05/17/14 [History] Albuterol Inhaler [Ventolin Hfa Inhaler] 2 puff INHALATION RT-QID PRN 05/17/14 [ History] Cholecalciferol [Vitamin D3] 2,000 unit PO DAILY 05/17/14 [History] Famotidine [Pepcid] 20 mg PO DAILY 05/17/14 [History] Furosemide [Lasix] 40 mg PO DAILY 05/17/14 [History] Metoprolol Tartrate [Lopressor] 50 mg PO BID 05/17/14 [History] Potassium Chloride [K-Tab ER] 10 meq PO BID 05/17/14 [History] Pregabalin [Lyrica] 75 mg PO BID 05/17/14 [History] Simvastatin [Zocor] 20 mg PO DAILY 05/17/14 [History] Spironolactone [Aldactone] 25 mg PO DAILY 05/17/14 [History] Warfarin [Coumadin] 1.5 mg PO HS 06/28/15 [History] Beclomethasone Dipropionate [Qvar 80 mcg/puff] 1 puff INHALATION RT-BID [History] Benazepril HCl [Lotensin] 20 mg PO DAILY 06/29/15 [History] Butalb/APAP/Caff 50-325-40Mg [Fioricet 50-325-40] 1 tab PO Q6H PRN 06/29/15 [ History] Fluticasone Nasal [place] [Flonase Nasal [place]] 1 spray EA NOSTRIL DAILY 06/29/15 [History] Nitroglycerin Sl Tabs [Nitrostat] 0.4 mg SUBLINGUAL Q5M PRN 06/29/15 [History] Omeprazole [PriLOSEC] 20 mg PO DAILY 06/29/15 [History] rOPINIRole HCL [Requip] 0.25 mg PO HS 06/29/15 [History] Clopidogrel [Plavix] 75 mg PO HS 01/06/17 [History] HYDROcodone/APAP 5-325MG [[place] 5-325] 5 mg PO BID PRN 01/06/17 [History] metroNIDAZOLE [Flagyl] 500 mg PO Q6HR #16 tab 01/09/17 [Rx] Follow up Appointment(s)/Referral(s): Antione Cook MD [Primary Care Provider] - 1-2 days Patient Instructions/Handouts: Heart Failure (DC), Acute Kidney Injury (DC), Type 2 Diabetes in Adults (DC) Discharge Disposition: HOME SELF-CARE
== END 2017-01-09 11:22 | disposition home or self-care (01) | DRG 683 ==
LOC: EC 19:05 → 4MS4W 21:25
PROVIDERS: ADMIT Family Medicine; ATTEND Family Medicine
DX: N17.9 Acute kidney failure, unspecified (principal); E87.2 Acidosis; I11.0 Hypertensive heart disease with heart failure; I50.9 Heart failure, unspecified; J44.9 Chronic obstructive pulmonary disease, unspecified; E87.5 Hyperkalemia; E86.0 Dehydration; R50.9 Fever, unspecified; T46.4X5A Adverse effect of angiotensin-converting-enzyme inhibitors, initial encounter; T50.0X5A Adverse effect of mineralocorticoids and their antagonists, initial encounter; R19.7 Diarrhea, unspecified; R10.9 Unspecified abdominal pain; E11.9 Type 2 diabetes mellitus without complications; R29.701 NIHSS score 1; I25.2 Old myocardial infarction; F41.9 Anxiety disorder, unspecified; R53.83 Other fatigue; M19.90 Unspecified osteoarthritis, unspecified site; Z79.01 Long term (current) use of anticoagulants; Z79.02 Long term (current) use of antithrombotics/antiplatelets; Z80.1 Family history of malignant neoplasm of trachea, bronchus and lung; Z82.49 Family history of ischemic heart disease and other diseases of the circulatory system; Z95.1 Presence of aortocoronary bypass graft; Z79.899 Other long term (current) drug therapy; Z82.5 Family history of asthma and other chronic lower respiratory diseases; Z98.890 Other specified postprocedural states; Z90.49 Acquired absence of other specified parts of digestive tract; Z91.048 Other nonmedicinal substance allergy status; Z88.6 Allergy status to analgesic agent; Z86.718 Personal history of other venous thrombosis and embolism; Z83.3 Family history of diabetes mellitus; Z80.0 Family history of malignant neoplasm of digestive organs; Z86.73 Personal history of transient ischemic attack (TIA), and cerebral infarction without residual deficits; Z79.891 Long term (current) use of opiate analgesic; Z79.51 Long term (current) use of inhaled steroids; Z95.5 Presence of coronary angioplasty implant and graft; Z95.2 Presence of prosthetic heart valve
CPT/HCPCS: 36415; 71020; 80048; 80053; 81003; 82550; 82553; 83735; 84439; 84443; 84481; 84484; 85025; 85610; 85730; 87040; 87045; 87046; 89055; 93005; 94640; 96361; 96365; 99285

== ENCOUNTER → 2017-08-31 | Outpatient (CLI) | payer MEDICARE, OTHER ==
--- NOTE | 2017-09-05 10:00 | MM ---
Reason for exam: screening (asymptomatic). Last mammogram was performed 5 years and 1 month ago. History: Patient is postmenopausal. Family history of premenopausal breast cancer in maternal cousin at age 30. Benign excisional biopsy of the left breast, 1970. Physical Findings: A clinical breast exam by your physician is recommended on an annual basis and results should be correlated with mammographic findings. MG 3D Screening Mammo W/Cad Bilateral CC and MLO view(s) were taken. Prior study comparison: May 04, 2015, mammogram, performed at [facility]. August 28, 2013, mammogram, performed at [facility]. August 05, 2012, bilateral digital screening mammo w/CAD. August 01, 2011, CAD bilateral diagnostic mammogram. The breast tissue is heterogeneously dense. This may lower the sensitivity of mammography. No suspicious abnormality. No significant changes when compared with prior studies. ASSESSMENT: Negative, BI-RAD 1 RECOMMENDATION: Routine screening mammogram of both breasts in 1 year.
== END | disposition home or self-care (01) ==
LOC: RADMAMWWP 08:47
PROVIDERS: ATTEND Family Medicine
DX: Z12.31 Encounter for screening mammogram for malignant neoplasm of breast (principal)
CPT/HCPCS: 77063; 77067

== ENCOUNTER 2017-11-11 20:45 | Inpatient (IN) | payer MEDICARE, OTHER ==
[2017-11-11] MEDS ORDERED: OXYMETAZOLINE 0.05% NASL SPRAY 1 SPRAY BOTTLE NASAL STA (21:19)
--- NOTE | 2017-11-11 21:38 | ED ---
ENT HPI - General Chief complaint: ENT Stated complaint: Bloody Nose Time Seen by Provider: 11/11/17 21:16 Source: patient Mode of arrival: ambulatory Limitations: no limitations - History of Present Illness Initial comments: 67-year-old female patient currently taking Coumadin presents to the emergency department today for evaluation of epistaxis. Patient states she has had bleeding from her bilateral nostrils for the last hour. Patient states nothing she tries will get it to stop. Patient states that her last INR was performed approximately a week ago. States that they did have her increase her dosage somewhat. States that she is waiting on her most recent level. Patient denies any headache, dizziness, or weakness. Denies any chest pain or shortness of breath. Denies any other areas of bleeding. Patient denies any recent rash, fever, chills, abdominal pain, nausea, vomiting, diarrhea, constipation, hematochezia, melena, back pain, numbness, tingling, hematuria, dysuria, urinary urgency, urinary frequency, headache, visual changes, or any other complaints. - Related Data Home Medications Medication Instructions Recorded Confirmed ALPRAZolam [Xanax] 0.25 mg PO TID PRN 05/17/14 01/06/17 Acetaminophen-Codeine 300-30mg 1 tab PO BID PRN 05/17/14 01/06/17 [Tylenol w/codeine #3] Albuterol Inhaler [Ventolin Hfa 2 puff INHALATION RT-QID PRN 05/17/14 01/06/17 Inhaler] Cholecalciferol [Vitamin D3] 2,000 unit PO DAILY 05/17/14 01/06/17 Famotidine [Pepcid] 20 mg PO DAILY 05/17/14 01/06/17 Furosemide [Lasix] 40 mg PO DAILY 05/17/14 01/06/17 Metoprolol Tartrate [Lopressor] 50 mg PO BID 05/17/14 01/06/17 Potassium Chloride [K-Tab ER] 10 meq PO BID 05/17/14 01/06/17 Pregabalin [Lyrica] 75 mg PO BID 05/17/14 01/06/17 Simvastatin [Zocor] 20 mg PO DAILY 05/17/14 01/06/17 Spironolactone [Aldactone] 25 mg PO DAILY 05/17/14 01/06/17 Warfarin [Coumadin] 1.5 mg PO HS 06/28/15 01/06/17 Beclomethasone Dipropionate [Qvar 1 puff INHALATION RT-BID 06/29/15 01/06/17 80 mcg/puff] Benazepril HCl [Lotensin] 20 mg PO DAILY 06/29/15 01/06/17 Butalb/APAP/Caff 50-325-40Mg 1 tab PO Q6H PRN 06/29/15 01/06/17 [Fioricet 50-325-40] Fluticasone Nasal [place] [Flonase 1 spray EA NOSTRIL DAILY 06/29/15 01/06/17 Nasal [place]] Nitroglycerin Sl Tabs [Nitrostat] 0.4 mg SUBLINGUAL Q5M PRN 06/29/15 01/06/17 Omeprazole [PriLOSEC] 20 mg PO DAILY 06/29/15 01/06/17 rOPINIRole HCL [Requip] 0.25 mg PO HS 06/29/15 01/06/17 Clopidogrel [Plavix] 75 mg PO HS 01/06/17 01/06/17 HYDROcodone/APAP 5-325MG [[place] 5 mg PO BID PRN 01/06/17 01/06/17 5-325] Previous Rx's Medication Instructions Recorded metroNIDAZOLE [Flagyl] 500 mg PO Q6HR #16 tab 01/09/17 Allergies Allergy/AdvReac Type Severity Reaction Status Date / Time aspirin Allergy Unknown Verified 11/11/17 21:00 surgical tape AdvReac Unknown Uncoded 11/11/17 21:00 Review of Systems ROS Statement: Those systems with pertinent positive or pertinent negative responses have been documented in the HPI. ROS Other: All systems not noted in ROS Statement are negative. Past Medical History Past Medical History: Heart Failure, COPD, CVA/TIA, Diabetes Mellitus, Deep Vein Thrombosis (DVT), Hypertension, Myocardial Infarction (ME), Musculoskeletal Disorder, Osteoarthritis (OA) Additional Past Medical History / Comment(s): mechanical valve, PT STATED HAD CVA AFFECTED LT SIDE BUT NOW NO RESIDUAL PROBLEMS Last Myocardial Infarction Date:: 1994 History of Any Multi-Drug Resistant Organisms: None Reported Past Surgical History: Cholecystectomy, Coronary Bypass/CABG, Orthopedic Surgery Additional Past Surgical History / Comment(s): lung surgery, left knee surgery Past Anesthesia/Blood Transfusion Reactions: No Reported Reaction Date of Last Stent Placement:: 2004 Past Psychological History: Anxiety Smoking Status: Never smoker - Past Family History Father History Unknown: Yes Mother Family Medical History: Cancer, Hypertension Additional Family Medical History / Comment(s): colon and liver cancer Sister(s) Family Medical History: Cancer Additional Family Medical History / Comment(s): lung cancer Brother(s) Family Medical History: COPD, Coronary Artery Disease (CAD), Diabetes Mellitus Additional Family Medical History / Comment(s): fem pop General Exam Limitations: no limitations General appearance: alert, in no apparent distress, other (This is a well- developed, well-nourished elderly female patient in no acute distress. Vital signs upon presentation are temperature 98.1F, pulse 69, respirations 18, blood pressure 170/74, pulse ox 96% on room air.) Eye exam: Present: normal appearance, PERRL, EOMI. Absent: scleral icterus, conjunctival injection, periorbital swelling ENT exam: Present: normal oropharynx, mucous membranes moist, other (Patient has active bleeding from her bilateral nostrils. Unable to visualize area of bleeding.). Absent: normal exam Neck exam: Present: normal inspection. Absent: tenderness, meningismus, lymphadenopathy Respiratory exam: Present: normal lung sounds bilaterally. Absent: respiratory distress, wheezes, rales, rhonchi, stridor Cardiovascular Exam: Present: regular rate, normal rhythm, normal heart sounds. Absent: systolic murmur, diastolic murmur, rubs, gallop, clicks GI/Abdominal exam: Present: soft, normal bowel sounds. Absent: distended, tenderness, guarding, rebound, rigid Neurological exam: Present: alert, oriented X3, CN II-XII intact Psychiatric exam: Present: normal affect, normal mood Skin exam: Present: warm, dry, intact, normal color. Absent: rash Course Vital Signs 11/11/17 11/12/17 20:58 03:00 Temperature 98.1 F 97.6 F Pulse Rate 69 64 Respiratory 18 18 Rate Blood Pressure 170/74 126/66 O2 Sat by Pulse 96 98 Oximetry Medical Decision Making - Medical Decision Making 67-year-old female patient presented to the emergency department today for evaluation of epistaxis. Physical examination did reveal active bleeding from bilateral nostrils a more copious from the right nostril. Initially we attempted having patient did smell the clots by blowing, instilled Afrin and held pressure for 20 minutes. Patient continued to have bleeding after this. We then soaked gauze with lidocaine with epinephrine and packed and bilateral nostrils and held pressure for an additional 20-30 minutes. Patient continued to have bleeding after this intervention. We then used TXA soaked Rhino Rocket to pack the right nasal passage, this does provide both anterior and posterior packing. This did control the bleeding. As patient does take Coumadin and her INR is greater than 10 we did administer 10 mg of vitamin K. We repeated the INR level which continued to be greater than 10. CBC was obtained and showed hemoglobin of 10.9. Triage blood pressure was 170/74, we did administer clonidine to decrease this level. Patient remains alert and appropriate throughout her visit. Patient will be admitted to [facility] care. Dr. Cook is accepting. - Lab Data Result diagrams: 11/12/17 01:00 Lab Results 11/11/17 11/12/17 11/12/17 Range/Units 21:36 01:00 01:18 WBC 7.3 (3.8-10.6) k/uL RBC 3.66 L (3.80-5.40) m/uL Hgb 10.9 L (11.4-16.0) gm/dL Hct 32.0 L (34.0-46.0) % MCV 87.4 (80.0-100.0) fL MCH 29.7 (25.0-35.0) pg MCHC 33.9 (31.0-37.0) g/dL RDW 13.8 (11.5-15.5) % Plt Count 147 L (150-450) k/uL Neutrophils % 66 % Lymphocytes % 20 % Monocytes % 9 % Eosinophils % 3 % Basophils % 1 % Neutrophils # 4.8 (1.3-7.7) k/uL Lymphocytes # 1.4 (1.0-4.8) k/uL Monocytes # 0.6 (0-1.0) k/uL Eosinophils # 0.3 (0-0.7) k/uL Basophils # 0.0 (0-0.2) k/uL PT 103.3 H 100.3 H (9.0-12.0) sec INR >10.0 H* >10.0 H* (<1.2) APTT 63.3 H (22.0-30.0) sec Disposition Clinical Impression: Epistaxis, Coagulopathy Disposition: ADMITTED IP TO THIS [facility] Condition: Serious Referrals: Antione Cook MD [Primary Care Provider] - 1-2 days Decision to Admit Reason: Admit from EC Decision Date: 11/12/17 Decision Time: 01:15
[2017-11-11] MEDS ORDERED: cloNIDine HCL 0.1 MG TAB PO STA (21:54)
[2017-11-11] MEDS ORDERED: LIDOCAINE 1%-EPI 1:100,000 30 ML VIAL SUBMUCOSAL STA (21:55)
[2017-11-11 22:33] LABS: Prothrombin Time 103.3 sec (9.0-12.0)
[2017-11-11 22:41] LABS: INR >10.0 (<1.2)
[2017-11-11 22:42] LABS: Partial Thromboplastin Time 63.3 sec (22.0-30.0)
[2017-11-11] MEDS ORDERED: TRANEXAMIC ACID 1,000 MG/10 ML VIAL MISCELLANE STA (23:02)
[2017-11-11] MEDS ORDERED: PHYTONADIONE ORAL 5 MG/5 ML ORAL.SYRG PO STA (23:02)
[2017-11-12] MEDS ORDERED: NALOXONE 0.4 MG/ML 1 ML VIAL IV PRN (01:06)
[2017-11-12 01:11] LABS: Basophils % (A) 1 %; Eosinophils # (A) 0.3 k/uL (0-0.7); Eosinophils % (A) 3 %; HGB 10.9 gm/dL (11.4-16.0); Lymphocytes # (A) 1.4 k/uL (1.0-4.8); Lymphocytes % (A) 20 %; MCH 29.7 pg (25.0-35.0); MCHC 33.9 g/dL (31.0-37.0); MCV 87.4 fL (80.0-100.0); Mean Platelet Volume 10.2; Monocytes # (A) 0.6 k/uL (0-1.0); Monocytes % (A) 9 %; Neutrophils # (A) 4.8 k/uL (1.3-7.7); Neutrophils % (A) 66 %; Platelet Count 147 k/uL (150-450); RBC 3.66 m/uL (3.80-5.40); RDW 13.8 % (11.5-15.5); WBC 7.3 k/uL (3.8-10.6)
[2017-11-12 01:46] LABS: Prothrombin Time 100.3 sec (9.0-12.0)
[2017-11-12 02:00] LABS: INR >10.0 (<1.2)
[2017-11-12] MEDS ORDERED: MORPHINE SULFATE 4 MG/ML SYRINGE IVP STA (02:38)
[2017-11-12] MEDS ORDERED: ONDANSETRON 4 MG/2 ML VIAL IVP STA (02:38)
--- NOTE | 2017-11-12 04:39 | ED ---
Medical Decision Making - Lab Data Result diagrams: 11/12/17 01:00 Lab Results 11/11/17 11/12/17 Range/Units 21:36 01:00 WBC 7.3 (3.8-10.6) k/uL RBC 3.66 L (3.80-5.40) m/uL Hgb 10.9 L (11.4-16.0) gm/dL Hct 32.0 L (34.0-46.0) % MCV 87.4 (80.0-100.0) fL MCH 29.7 (25.0-35.0) pg MCHC 33.9 (31.0-37.0) g/dL RDW 13.8 (11.5-15.5) % Plt Count 147 L (150-450) k/uL Neutrophils % 66 % Lymphocytes % 20 % Monocytes % 9 % Eosinophils % 3 % Basophils % 1 % Neutrophils # 4.8 (1.3-7.7) k/uL Lymphocytes # 1.4 (1.0-4.8) k/uL Monocytes # 0.6 (0-1.0) k/uL Eosinophils # 0.3 (0-0.7) k/uL Basophils # 0.0 (0-0.2) k/uL PT 103.3 H (9.0-12.0) sec INR >10.0 H* (<1.2) APTT 63.3 H (22.0-30.0) sec Disposition Clinical Impression: Epistaxis, Coagulopathy Disposition: ADMITTED IP TO THIS [facility] Condition: Serious Procedures - Procedures Initial comment: Right nasal packing inserted. Utilizing rapid Rhino anterior and posterior packing saturated with TXA 500 mg. Inflated posterior lumen with approximately 5 mL of air. Inflated anteriorly when with approximately 5 mL of air. Patient tolerated well. Patient did have oosing from the right nare, so an additional 2 mL of air were insurgent each lumen. Patient again tolerated this well. This did provide cessation of bleeding.
[2017-11-12 05:50] LABS: Prothrombin Time 80.8 sec (9.0-12.0)
[2017-11-12 06:00] LABS: INR 8.7 (<1.2)
[2017-11-12] MEDS ORDERED: ALPRAZolam 0.25 MG TAB PO STA (06:22)
[2017-11-12 07:06] VITALS: BMI 35.0
[2017-11-12] MEDS: AMOXIC-POT CLAV 875-125MG 1 EACH TAB PO SCH ×2 (08:41→20:01)
[2017-11-12] MEDS: HYDROcodone/APAP 5-325MG 1 EACH TAB PO PRN ×3 (08:43→21:27)
[2017-11-12] MEDS ORDERED: NITROGLYCERIN SL TABS 0.4 MG TAB SUBLINGUAL PRN (11:17)
[2017-11-12] MEDS ORDERED: ALBUTEROL INHALER 60 PUFF/8 GM INHALER INHALATION PRN (11:17)
[2017-11-12] MEDS ORDERED: ALBUTEROL NEBULIZED 2.5 MG/3 ML INHALATION PRN (11:17)
[2017-11-12] MEDS ORDERED: ALPRAZolam 0.25 MG TAB PO PRN (11:17)
[2017-11-12] MEDS ORDERED: FLUTICASONE 50MCG/SPRAY NASAL 16GM EA NOSTRIL PRN (11:17)
[2017-11-12] MEDS ORDERED: IPRATROPIUM 0.5 MG/2.5 ML NEBU INHALATION PRN (11:17)
[2017-11-12] MEDS ORDERED: PHYTONADIONE ORAL 5 MG/5 ML ORAL.SYRG PO STA ×2 (11:20→11:22)
[2017-11-12] MEDS ORDERED: ALBUTEROL NEB (CONC) 2.5 MG/0.5 ML INHALATION PRN (11:25)
[2017-11-12] MEDS: SYMBICORT 160-4.5 MCG INHALER INHALATION SCH (19:36)
[2017-11-12 19:57] VITALS: RESP 16
[2017-11-12] MEDS: PREGABALIN 75 MG CAP PO SCH (20:01)
[2017-11-12] MEDS: SACUBITRIL/VALSARTAN 97 MG-103 MG TABLET PO SCH (20:02)
[2017-11-12] MEDS ORDERED: CLOPIDOGREL 75 MG TAB PO SCH (21:00)
[2017-11-13] MEDS: HYDROcodone/APAP 5-325MG 1 EACH TAB PO PRN ×3 (03:39→15:55)
[2017-11-13] MEDS: Acetaminophen-Codeine 300-30mg TAB PO PRN ×2 (06:29→12:07)
[2017-11-13 07:12] LABS: INR 1.6 (<1.2); Prothrombin Time 14.8 sec (9.0-12.0)
[2017-11-13] MEDS ORDERED: CARVEDILOL 3.125 MG TAB PO SCH (07:30)
[2017-11-13] MEDS ORDERED: PANTOPRAZOLE 40 MG TABLET PO SCH (07:30)
--- NOTE | 2017-11-13 07:53 | HP ---
HISTORY AND PHYSICAL CHIEF COMPLAINT: Right-sided epistaxis. HISTORY OF PRESENT ILLNESS: This is another admission for this 67-year-old white female who has a history of congenital heart disease. Takes Coumadin. She came in the emergency room when she developed epistaxis on the right side and her INR was over 10. REVIEW OF SYSTEMS: She has had no syncope, pain in the sinus or nasal area, chest pain, shortness of breath, etc. Past medical history, family history, and personal and social histories indicates she is allergic to ASPIRIN and she is on Symbicort 160/4.5 two puffs twice a day, Coumadin 3 mg once a day. She is sensitive to Coumadin. She is also on clopidogrel 75 mg once a day, Nasacort, Lyrica 150 twice a day, carvedilol 3.125 once a day, Entresto 97-103 twice a day for CHF, updrafts with Atrovent and albuterol, Tylenol No. 3 occasionally, Lasix 40 once a day, vitamin D, spironolactone 25 mg once a day, omeprazole 20 mg once a day. The remainder of her history is unremarkable. She did have a CVA in 2015. PHYSICAL EXAMINATION: Blood pressure is 105/60 with a pulse of 56, respirations 14 and she is afebrile. In general, she appeared to be pale, but in no acute distress. Skin color is normal. Skin is warm, dry. Lymph nodes not enlarged. Head, ears, eyes, nose, mouth, and throat were otherwise normal except for nasal packing on the right. Chest is clear. Cardiac exam demonstrated what sounds like an irregularly irregular rhythm. Abdomen is soft and nontender. Extremities are normal. Neurologically, she is intact. She is admitted to the hospital with diagnoses: 1. Epistaxis. 2. Iatrogenic hyperprothrombinemia. 3. Congenital heart disease. 4. History of hypertension. 5. Congestive heart failure. 6. History of coronary artery disease. PLAN: 1. Bed rest. 2. IV fluids. 3. Vitamin K. 4. ENT consult. MMODL / IJN: [id number] /
[2017-11-13] MEDS: SYMBICORT 160-4.5 MCG INHALER INHALATION SCH (08:22)
[2017-11-13] MEDS: AMOXIC-POT CLAV 875-125MG 1 EACH TAB PO SCH (08:53)
[2017-11-13] MEDS: SACUBITRIL/VALSARTAN 97 MG-103 MG TABLET PO SCH (08:54)
[2017-11-13] MEDS ORDERED: FUROSEMIDE 40 MG TAB PO SCH (09:00)
[2017-11-13] MEDS: PREGABALIN 75 MG CAP PO SCH (09:00)
[2017-11-13] MEDS ORDERED: SPIRONOLACTONE 25 MG TAB PO SCH (09:00)
[2017-11-13 09:06] VITALS: TEMP 96
--- NOTE | 2017-11-13 11:53 | P.GSCN ---
History of Present Illness Consult date: 11/13/17 Reason for Consult: Right sided nose bleed Requesting physician: Antione Cook History of present illness: Pt is a 67 year old white female on coumadin who developed brisk right sided epistaxis. Was see in the ER here and was packed with a double lumen rapid rhino and admited for observation. She has been dry since admission yesterday. Her INR is being corrected with vitamin K. Her INR was over 10. She has facial pressure and pain from the pack and wishes to have this pack removed. She has no other sinonasal issues. Review of Systems - Constitutional Denies anorexia - EENT Eyes: denies blurred vision, denies diplopia Ears, nose, mouth and throat: Reports as per HPI - Cardiovascular Reports as per HPI - Respiratory Denies congestion - Gastrointestinal Denies belching - Genitourinary Genitourinary: Denies nocturia, Denies pelvic pain Menstruation: Reports amenorrhea - Musculoskeletal Denies arm numbness/tingling - Integumentary Denies boils - Neurological Denies balance difficulties - Psychiatric Denies change in appetite - Endocrine Denies excessive sweating - Hematologic/Lymphatic Reports easy bleeding - Allergic/Immunologic Denies allergic rhinitis Past Medical History Past Medical History: Heart Failure, COPD, CVA/TIA, Diabetes Mellitus, Deep Vein Thrombosis (DVT), Hypertension, Myocardial Infarction (ID), Musculoskeletal Disorder, Osteoarthritis (OA) Additional Past Medical History / Comment(s): mechanical valve, PT STATED HAD CVA AFFECTED LT SIDE BUT NOW NO RESIDUAL PROBLEMS Last Myocardial Infarction Date:: 1994 History of Any Multi-Drug Resistant Organisms: None Reported Past Surgical History: Cholecystectomy, Coronary Bypass/CABG, Orthopedic Surgery Additional Past Surgical History / Comment(s): lung surgery, left knee surgery Past Anesthesia/Blood Transfusion Reactions: No Reported Reaction Date of Last Stent Placement:: 2004 Past Psychological History: Anxiety Additional Psychological History / Comment(s): . Retired. No international travel. No experience. Pet dog not new. No tobacco or alcohol use at this time Smoking Status: Never smoker Past Alcohol Use History: None Reported Additional Past Alcohol Use History / Comment(s): STARTED SMOKING AT AGE 14 - QUIT 1994 SMOKED 1PPD, Past Drug Use History: None Reported - Past Family History Father History Unknown: Yes Mother Family Medical History: Cancer, Hypertension Additional Family Medical History / Comment(s): colon and liver cancer Sister(s) Family Medical History: Cancer Additional Family Medical History / Comment(s): lung cancer Brother(s) Family Medical History: COPD, Coronary Artery Disease (CAD), Diabetes Mellitus Additional Family Medical History / Comment(s): fem pop Medications and Allergies Home Medications Medication Instructions Recorded Confirmed Type ALPRAZolam [Xanax] 0.25 mg PO TID PRN 05/17/14 11/12/17 History Acetaminophen-Codeine 300-30mg 1 tab PO Q4H PRN 05/17/14 11/12/17 History [Tylenol w/codeine #3] Albuterol Inhaler [Ventolin Hfa 2 puff INHALATION RT-QID PRN 05/17/14 11/12/17 History Inhaler] Furosemide [Lasix] 40 mg PO DAILY 05/17/14 11/12/17 History Spironolactone [Aldactone] 25 mg PO DAILY 05/17/14 11/12/17 History Beclomethasone Dipropionate [Qvar 1 puff INHALATION RT-BID 06/29/15 11/12/17 History 80 mcg/puff] Fluticasone Nasal Gregory [Flonase 1 spray EA NOSTRIL RT-BID PRN 06/29/15 History Nasal Gregory] Nitroglycerin Sl Tabs [Nitrostat] 0.4 mg SUBLINGUAL Q5M PRN 06/29/15 11/12/17 History Omeprazole [PriLOSEC] 20 mg PO DAILY 06/29/15 11/12/17 History Clopidogrel [Plavix] 75 mg PO HS 01/06/17 11/12/17 History Albuterol Nebulized [Ventolin 2.5 mg INHALATION RT-Q6H PRN 11/12/17 11/12/17 History Nebulized] Budesonide-Formot 160-4.5 Mcg 2 puff INHALATION RT-BID 11/12/17 11/12/17 History [Symbicort 160-4.5 Mcg Inhaler] Carvedilol [Coreg] 3.125 mg PO DAILY 11/12/17 11/12/17 History Ergocalciferol [Vitamin D2] 50,000 unit PO Q30D 11/12/17 11/12/17 History Hydrocortisone Cream 1 applic TOPICAL QID PRN 11/12/17 11/12/17 History [Hydrocortisone 2.5% Cream] Ipratropium Nebulized [Atrovent 0.5 mg INHALATION RT-Q6H PRN 11/12/17 11/12/17 History Nebulized] Pregabalin [Lyrica] 150 mg PO BID 11/12/17 11/12/17 History Sacubitril/Valsartan [Entresto 97 0.5 tab PO BID 11/12/17 11/12/17 History mg-103 mg Tablet] Warfarin [Coumadin] 3 mg PO HS 11/12/17 11/12/17 History Allergies Allergy/AdvReac Type Severity Reaction Status Date / Time aspirin Allergy Unknown Verified 11/11/17 21:00 surgical tape AdvReac Unknown Uncoded 11/11/17 21:00 Surgical - Exam Osteopathic Statement: *. No significant issues noted on an osteopathic structural exam other than those noted in the History and Physical/Consult. Vital Signs Temp Pulse Resp BP Pulse Ox 98.1 F 69 18 170/74 96 11/11/17 20:58 11/11/17 20:58 11/11/17 20:58 11/11/17 20:58 11/11/17 20:58 - General well developed, well nourished, no distress, obese - Eyes PERRL, normal ocular movement - ENT normal pinna, normal nares, normal mucosa, no hearing loss, no congestion - Neck no masses, no bruits, trachea midline, no lymphadectomy, no venous distension - Abdomen Abdomen: soft - Integumentary no rash, no growths - Neurologic normal coordination, normal sensation - Musculoskeletal normal gait, normal posture - Psychiatric oriented to time, oriented to person, oriented to place, speech is normal, memory intact Results - Labs 11/12/17 01:00 Abnormal Lab Results - Last 24 Hours (Table) 11/13/17 Range/Units 06:12 PT 14.8 H (9.0-12.0) sec INR 1.6 H (<1.2) Assessment and Plan (1) Epistaxis Current Visit: Yes Status: Acute Code(s): R04.0 - EPISTAXIS SNOMED Code(s) : 854048687 Plan: I removed the right nasal pack and the pt tolerated this removal quite well. No bleeding was encountered. Recommend tight control of her coumadin and the pt is to follow up with me as needed. Time with Patient: Greater than 30
[2017-11-13 12:19] VITALS: BP 122/69; PULSE 83
--- NOTE | 2017-11-14 11:25 | DS ---
DISCHARGE SUMMARY CHIEF COMPLAINT: Right-sided epistaxis. HISTORY OF PRESENT ILLNESS AND PHYSICAL EXAM: Details of this lady's history and physical can be found in the initial workup. LABORATORY STUDIES: While she was in a hospital she had laboratory studies details which can be found in the laboratory section of her chart. COURSE IN HOSPITAL: After admission, she was placed on bedrest and her INR was brought under control and back into the therapeutic range. The nasal packing was removed by ENT and it was felt that she could go home on the . She will go home on usual activity, diet and medication and she will be kept off Coumadin for several days. FINAL DIAGNOSES: 1. Epistaxis. 2. Iatrogenic hyperprothrombinemia. 3. Cardiac arrhythmia. 4. Congestive heart failure. 5. Congenital heart disease. OPERATIONS: None. CONSULTATIONS: Ears, nose and throat. She is improved. DEANNE / SHANE: [id number] /
--- NOTE | 2017-11-16 14:38 | CDI ---
Last Revision, June 2017 Documentation Clarification Form Date: 11/13/2017 10:00:00 AM From: Deann Millard RN, CCDS Admit Date: 11/12/2017 1:03:00 AM Patient Name: Elvi Agustin Visit Number: [id number] ATTENTION: The Clinical Documentation Specialists (CDI) and [facility] Coding Staff appreciate your assistance in clarifying documentation. Please respond to the clarification below the line at the bottom and electronically sign. The CDI & [facility] Coding staff will review the response and follow-up if needed. Please note: Queries are made part of the Legal Health Record. If you have any questions, please contact the author of this message via ITS. Dr. Antione Cook History/Risk Factors: Congital Heart disease, pt takes home Coumadin, mechanical valve, CHF Clinical Indicators: VS/Pulse OX: Temp 98.1, hr 69, rr 18, b/p 170/74, spo2 96% ra BNP: not done 06/29/15 Echocardiogram Results: Ef 45-50%, mechanical [facility] valve Chest X Ray: no CXR this admission Treatment: Lasix 40 mg PO QD Aldactone 25 mg PO QD In your professional opinion, can you please clarify the acuity and type of CHF if known? Systolic Heart Failure: Acute Chronic Acute on Chronic Diastolic Heart Failure: Acute Chronic Acute on Chronic Systolic & Diastolic Heart Failure: Acute Chronic Acute on Chronic Heart Failure Unable to Determine Other, please specify Please continue to document in your progress notes and discharge summary in order to capture severity of illness and risk of mortality. Include clinical findings that support your diagnosis. MTDD
--- NOTE | 2017-11-20 10:52 | MISC ---
MISCELLANOUS REPORT QUERY Congestive heart failure is acute on chronic that is systolic. MMODL / IJN: [id number] /
== END 2017-11-13 17:34 | disposition home or self-care (01) | DRG 150 ==
LOC: EC 20:45 → 6SEL 11-12 01:03
PROVIDERS: ADMIT Family Medicine; ATTEND Family Medicine
DX: R04.0 Epistaxis (principal); I50.23 Acute on chronic systolic (congestive) heart failure; E11.9 Type 2 diabetes mellitus without complications; I11.0 Hypertensive heart disease with heart failure; I25.2 Old myocardial infarction; I49.9 Cardiac arrhythmia, unspecified; J44.9 Chronic obstructive pulmonary disease, unspecified; F41.9 Anxiety disorder, unspecified; M19.90 Unspecified osteoarthritis, unspecified site; R79.1 Abnormal coagulation profile; I25.10 Atherosclerotic heart disease of native coronary artery without angina pectoris; Q24.9 Congenital malformation of heart, unspecified; Z79.01 Long term (current) use of anticoagulants; Z79.51 Long term (current) use of inhaled steroids; Z79.899 Other long term (current) drug therapy; Z79.02 Long term (current) use of antithrombotics/antiplatelets; Z88.6 Allergy status to analgesic agent; Z91.048 Other nonmedicinal substance allergy status; Z95.1 Presence of aortocoronary bypass graft; Z86.73 Personal history of transient ischemic attack (TIA), and cerebral infarction without residual deficits; Z86.718 Personal history of other venous thrombosis and embolism; Z90.49 Acquired absence of other specified parts of digestive tract; Z83.3 Family history of diabetes mellitus; Z82.5 Family history of asthma and other chronic lower respiratory diseases; Z82.49 Family history of ischemic heart disease and other diseases of the circulatory system; Z80.1 Family history of malignant neoplasm of trachea, bronchus and lung; Z80.0 Family history of malignant neoplasm of digestive organs
CPT/HCPCS: 30901; 36415; 85025; 85610; 85730; 94640; 96374; 96375; 99284

== ENCOUNTER → 2018-10-18 | Outpatient (CLI) | payer MEDICARE, OTHER ==
--- NOTE | 2018-10-22 08:28 | MM ---
Reason for exam: screening (asymptomatic). Last mammogram was performed 1 year and 2 months ago. History: Patient is postmenopausal. Family history of premenopausal breast cancer in maternal cousin at age 30. Benign excisional biopsy of the left breast, 1969. Physical Findings: A clinical breast exam by your physician is recommended on an annual basis and results should be correlated with mammographic findings. MG 3D Screening Mammo W/Cad Bilateral CC and MLO view(s) were taken. Prior study comparison: August 31, 2017, bilateral MG 3d screening mammo w/cad. May 04, 2015, mammogram, performed at [facility]. There are scattered fibroglandular densities. No significant changes when compared with prior studies. ASSESSMENT: Negative, BI-RAD 1 RECOMMENDATION: Routine screening mammogram of both breasts in 1 year.
== END ==
LOC: RADMAMWWP 13:33
PROVIDERS: ATTEND Family Medicine
DX: Z12.31 Encounter for screening mammogram for malignant neoplasm of breast (principal); Z80.3 Family history of malignant neoplasm of breast
CPT/HCPCS: 77063; 77067

== ENCOUNTER → 2019-03-03 | Outpatient (CLI) | payer MEDICARE, OTHER ==
--- NOTE | 2019-03-03 16:33 | US ---
EXAMINATION TYPE: US venous doppler duplex LE RT DATE OF EXAM: 03/03/2019 4:11 PM COMPARISON: NONE CLINICAL HISTORY: I80.9 Phlebitis and thrombophlebitis of unspecifie. SIDE PERFORMED: Right TECHNIQUE: The lower extremity deep venous system is examined utilizing real time linear array sonog perez with graded compression, doppler sonography and color-flow sonography. VESSELS IMAGED: External Iliac Vein (EIV) Common Femoral Vein Deep Femoral Vein Greater Saphenous Vein * Femoral Vein Popliteal Vein Small Saphenous Vein * Proximal Calf Veins (* superficial vessels) Right Leg: Negative for DVT IMPRESSION: 1. Right lower extremity deep venous ultrasound negative for deep venous thrombosis.
== END ==
LOC: RADUSMAIN 15:44
PROVIDERS: ATTEND Orthopaedic Surgery
DX: M79.669 Pain in unspecified lower leg (principal); E11.9 Type 2 diabetes mellitus without complications

== ENCOUNTER → 2019-08-15 | Outpatient (CLI) | payer MEDICARE, OTHER ==
[2019-08-15 10:51] LABS: INR 1.6 (<1.2); Partial Thromboplastin Time 31.5 sec (22.0-30.0); Prothrombin Time 15.4 sec (9.0-12.0)
[2019-08-15 10:53] LABS: HCT 36.9 % (34.0-46.0); HGB 12.3 gm/dL (11.4-16.0); MCH 30.7 pg (25.0-35.0); MCHC 33.4 g/dL (31.0-37.0); MCV 92.1 fL (80.0-100.0); RDW 14.5 % (11.5-15.5); WBC 9.1 k/uL (3.8-10.6)
[2019-08-15 11:00] LABS: Appearance,Urine Clear (Clear); Bilirubin,Urine Negative (Negative); Blood,Urine Negative (Negative); Color,Urine Yellow; Glucose,Urine (UA) Negative (Negative); Hyaline Casts,Urine 1 /lpf (0-2); Ketones,Urine Negative (Negative); Leukocyte Esterase,Urine Small (Negative); Mucus,Urine Rare /hpf; Nitrite,Urine Negative (Negative); Protein,Urine Negative (Negative); RBC,Urine 1 /hpf (0-5); Specific Gravity,Urine 1.019 (1.001-1.035); Squamous Epithelial Cell,Urine 3 /hpf (0-4); WBC,Urine 3 /hpf (0-5)
[2019-08-15 12:13] LABS: Platelet Count 134 k/uL (150-450)
[2019-08-15 13:58] LABS: Albumin 4.4 g/dL (3.5-5.0); Calcium 9.5 mg/dL (8.4-10.2); Potassium 5.7 mmol/L (3.5-5.1); Total Bilirubin 0.8 mg/dL (0.2-1.3); Total Protein 7.5 g/dL (6.3-8.2)
== END | disposition home or self-care (01) ==
LOC: LABPAT 09:30
PROVIDERS: ATTEND Orthopaedic Surgery
DX: Z01.812 Encounter for preprocedural laboratory examination (principal)
CPT/HCPCS: 80053; 81001; 85027; 85610; 85730; 87070

== ENCOUNTER → 2019-09-11 | Outpatient (CLI) | payer MEDICARE, OTHER ==
[2019-09-11 11:41] LABS: INR 2.3 (<1.2); Prothrombin Time 22.8 sec (9.0-12.0)
[2019-09-11 11:58] LABS: Basophils % (A) 1 %; Eosinophils # (A) 0.2 k/uL (0-0.7); Eosinophils % (A) 3 %; HCT 36.4 % (34.0-46.0); HGB 11.9 gm/dL (11.4-16.0); Lymphocytes # (A) 1.3 k/uL (1.0-4.8); Lymphocytes % (A) 22 %; MCH 30.2 pg (25.0-35.0); MCHC 32.5 g/dL (31.0-37.0); MCV 92.8 fL (80.0-100.0); Mean Platelet Volume 11.2; Monocytes # (A) 0.4 k/uL (0-1.0); Monocytes % (A) 7 %; Neutrophils # (A) 3.6 k/uL (1.3-7.7); Neutrophils % (A) 63 %; Platelet Count 154 k/uL (150-450); RBC 3.93 m/uL (3.80-5.40); RDW 14.1 % (11.5-15.5); WBC 5.7 k/uL (3.8-10.6)
[2019-09-11 17:39] LABS: African American GFR (CKD) 44.3 (60.0-200.0); Anion Gap 10.5 mmol/L (4.00-12.00); BUN/Creat Ratio 36.43 Ratio (12.00-20.00); Calcium 9.8 mg/dL (8.7-10.3); Carbon Dioxide 24.5 mmol/L (21.6-31.8); Non-African American GFR(CKD) 38.2 (60.0-200.0)
== END | disposition home or self-care (01) ==
LOC: LABWHC1 09:57
PROVIDERS: ATTEND Nurse Practitioner
DX: K62.5 Hemorrhage of anus and rectum (principal)
CPT/HCPCS: 36415; 80048; 85025; 85610

== ENCOUNTER → 2019-09-19 | Day surgery (SDC) | payer MEDICARE, OTHER ==
[2019-09-16 16:19] VITALS: BMI 35.9
[~2019-09-19] MED LIST: LACTATED RINGERS 1,000 ML IV SCH; LIDOCAINE 1% (10MG/ML) FOR IV START INTRADERMA PRN; LIDOCAINE 1% INJ 10MG/ML (20 ML MDV) ONE; PROPOFOL 10 MG/ML 20 ML VIAL IV ONE
[2019-09-19 13:28] VITALS: TEMP 97
[2019-09-19 13:32] LABS: Glucose,Whole Blood 110 mg/dL (75-99)
--- NOTE | 2019-09-19 14:14 | P.PCN ---
Date of Procedure: 09/19/19 Procedure(s) Performed: BRIEF HISTORY: Patient is a 69-year-old, pleasant, 8 female, scheduled for an upper endoscopy as a part of evaluation of epigastric pain and black stools on and off for the last 4 months duration. She has history of mitral valve replacement and has been on Coumadin for several years. She is scheduled for an upper endoscopy to evaluate further. PROCEDURE PERFORMED: Esophagogastroduodenoscopy with biopsy. PREOPERATIVE DIAGNOSIS: Epigastric pain and melena on and off for the last 3 months duration. IV sedation per anesthesia. PROCEDURE: After informed consent was obtained, the patient was brought into the endoscopy unit. IV sedation was administered by Anesthesia under continuous monitoring. Initially the Olympus GIF-140 video endoscope was inserted into the mouth. Esophagus intubated without any difficulty. It was gradually advanced into the stomach and duodenum and carefully examined. The bulb and the second part of the duodenum appeared normal. There was a large duodenal diverticulum noted in the second part of the duodenum. The scope at this time was withdrawn to the stomach, adequately insufflated with air, and upon careful examination, mucosa of the antrum, had diffuse gastritis and biopsies were done from this area. No ulcerations noted. The body, cardia and the fundus appeared normal. The scope was then withdrawn into the esophagus. The GE junction was located at 39 cm from the incisors. The esophagus appeared normal. There were no erosions or ulcerations seen and the patient tolerated the procedure well. IMPRESSION: 1. Mild antral diffuse gastritis. 2. No evidence of esophagitis or peptic ulcer disease. 3. Duodenal diverticulum. RECOMMENDATIONS: The findings of this examination were discussed with the patient as well as her family. She was advised to follow with the biopsy results. She will continue with omeprazole 20 mg daily and follow antireflux measures..
[2019-09-19 14:18] VITALS: RESP 17
[2019-09-19 14:44] VITALS: BP 108/61; PULSE 68
== END ==
LOC: ORWHC2ENDO 13:09
PROVIDERS: ATTEND Internal Medicine Gastroenterology
DX: K29.51 Unspecified chronic gastritis with bleeding (principal); K57.11 Diverticulosis of small intestine without perforation or abscess with bleeding; I11.0 Hypertensive heart disease with heart failure; I50.9 Heart failure, unspecified; J44.9 Chronic obstructive pulmonary disease, unspecified; I25.2 Old myocardial infarction; Z95.2 Presence of prosthetic heart valve; Z79.899 Other long term (current) drug therapy; Z79.02 Long term (current) use of antithrombotics/antiplatelets; Z79.82 Long term (current) use of aspirin; Z79.51 Long term (current) use of inhaled steroids; Z79.01 Long term (current) use of anticoagulants; Z79.891 Long term (current) use of opiate analgesic; Z97.2 Presence of dental prosthetic device (complete) (partial); Z86.718 Personal history of other venous thrombosis and embolism; Z87.891 Personal history of nicotine dependence; Z86.73 Personal history of transient ischemic attack (TIA), and cerebral infarction without residual deficits
CPT/HCPCS: 88305; 43239; J2001; J2704

== ENCOUNTER → 2020-01-23 | Outpatient (CLI) | payer MEDICARE, OTHER ==
[2020-01-23 10:35] LABS: INR 3.2 (<1.2); Partial Thromboplastin Time 55.1 sec (22.0-30.0); Prothrombin Time 31.7 sec (9.0-12.0)
[2020-01-23 10:37] LABS: Appearance,Urine Clear (Clear); Bilirubin,Urine Negative (Negative); Blood,Urine Negative (Negative); Color,Urine Yellow; Glucose,Urine (UA) Negative (Negative); Ketones,Urine Negative (Negative); Leukocyte Esterase,Urine Negative (Negative); Nitrite,Urine Negative (Negative); Protein,Urine Negative (Negative); Specific Gravity,Urine 1.014 (1.001-1.035); Urobilinogen,Urine <2.0 mg/dL (<2.0)
[2020-01-23 10:40] LABS: HCT 35.8 % (34.0-46.0); HGB 11.8 gm/dL (11.4-16.0); MCV 90.9 fL (80.0-100.0); Mean Platelet Volume 11.3; RBC 3.94 m/uL (3.80-5.40); RDW 14.3 % (11.5-15.5); WBC 5.8 k/uL (3.8-10.6)
[2020-01-23 10:52] LABS: Albumin 4.3 g/dL (3.5-5.0); Calcium 9.7 mg/dL (8.4-10.2); Potassium 5.6 mmol/L (3.5-5.1); Total Protein 7.1 g/dL (6.3-8.2)
[2020-01-23 11:28] LABS: Platelet Count 141 k/uL (150-450)
[2020-01-23 11:37] LABS: Total Bilirubin 0.6 mg/dL (0.2-1.3)
== END | disposition home or self-care (01) ==
LOC: LABPAT 08:54
PROVIDERS: ATTEND Orthopaedic Surgery
DX: Z01.818 Encounter for other preprocedural examination (principal); Z01.812 Encounter for preprocedural laboratory examination
CPT/HCPCS: 80053; 81003; 85027; 85610; 85730; 87070

== ENCOUNTER → 2020-02-25 | Outpatient (CLI) | payer MEDICARE, OTHER ==
[2020-02-25 09:13] LABS: Appearance,Urine Clear (Clear); Bilirubin,Urine Negative (Negative); Blood,Urine Negative (Negative); Color,Urine Yellow; Glucose,Urine (UA) Negative (Negative); Ketones,Urine Negative (Negative); Leukocyte Esterase,Urine Small (Negative); Nitrite,Urine Negative (Negative); PH, Urine 5.5 (5.0-8.0); Protein,Urine Negative (Negative); Specific Gravity,Urine 1.011 (1.001-1.035); Squamous Epithelial Cell,Urine 4 /hpf (0-4); Urobilinogen,Urine <2.0 mg/dL (<2.0); WBC,Urine 7 /hpf (0-5)
[2020-02-25 09:15] LABS: HCT 37.4 % (34.0-46.0); MCH 29.6 pg (25.0-35.0); MCHC 32.2 g/dL (31.0-37.0); MCV 92.1 fL (80.0-100.0); Mean Platelet Volume 11.1; Platelet Count 161 k/uL (150-450); RBC 4.06 m/uL (3.80-5.40); RDW 13.8 % (11.5-15.5); WBC 5.7 k/uL (3.8-10.6)
[2020-02-25 09:23] LABS: Albumin 4.1 g/dL (3.5-5.0); Calcium 9.3 mg/dL (8.4-10.2); Potassium 5.5 mmol/L (3.5-5.1); Total Bilirubin 0.7 mg/dL (0.2-1.3); Total Protein 6.8 g/dL (6.3-8.2)
[2020-02-25 09:24] LABS: INR 2.5 (<1.2); Partial Thromboplastin Time 41.9 sec (22.0-30.0)
== END | disposition home or self-care (01) ==
LOC: LABWHC1 08:29
PROVIDERS: ATTEND Orthopaedic Surgery
DX: Z01.818 Encounter for other preprocedural examination (principal); Z79.01 Long term (current) use of anticoagulants
CPT/HCPCS: 36415; 80053; 81001; 85027; 85610; 85730

== ENCOUNTER 2020-03-01 10:34 | Day surgery (SDC) | payer MEDICARE, OTHER ==
[2020-02-20 11:41] VITALS: BMI 35.9
[~2020-03-01 10:34] MED LIST changes: +ACETAMINOPHEN TAB 500 MG TAB PO ONE; +GABAPENTIN 300 MG CAP PO ONE; +HYDROmorphone 0.5 MG/0.5 ML SYRINGE IVP PRN; -LIDOCAINE 1% INJ 10MG/ML (20 ML MDV) ONE; +MELOXICAM 7.5 MG TAB PO ONE; +ONDANSETRON 4 MG/2 ML VIAL IVP ONE; -PROPOFOL 10 MG/ML 20 ML VIAL IV ONE; +ROPIVACAINE 246.25 MG, EPINEPHrine 0.5 MG, KETOROLAC 30 MG, cloNIDine HCL/PF 80 MCG, WA... MISCELLANE ONE; +TRANEXAMIC ACID 1,000 MG in SODIUM CHLORIDE 0.9% 100 ML IVPB ONE
[2020-03-01] MEDS ORDERED: ROPIVACAINE 0.2%-NS ON-Q PUMP 1,090 MG, EMPTY PAIN BALL 1 EACH MISCELLANE PRN (11:05)
[2020-03-01 11:15] VITALS: RESP 16; TEMP 97.2
[2020-03-01] MEDS ORDERED: ACETAMINOPHEN TAB 500 MG TAB ONE (11:21)
[2020-03-01] MEDS ORDERED: ONDANSETRON 4 MG/2 ML VIAL ONE (11:22)
[2020-03-01 11:38] LABS: Glucose,Whole Blood 124 mg/dL (75-99)
[2020-03-01] MEDS ORDERED: LACTATED RINGERS 1,000 ML IV ONE (11:40)
[2020-03-01] MEDS ORDERED: MIDAZOLAM 2 MG/2 ML VIAL IVP ONE (11:50)
[2020-03-01] MEDS ORDERED: fentaNYL (PF) 50 MCG/ML 2 ML AMP IVP ONE (11:50)
[2020-03-01 11:53] LABS: Potassium 4.4 mmol/L (3.5-5.1)
[2020-03-01 11:57] LABS: Prothrombin Time 19.5 sec (9.0-12.0)
[2020-03-01] MEDS ORDERED: FLUMAZENIL 0.1 MG/ML 5 ML VIAL IVP ONE ×3 (12:05→12:10)
[2020-03-01 12:15] VITALS: BP 142/63; PULSE 69
--- NOTE | 2020-03-01 12:22 | P.HPADDEND ---
H&P Addendum H&P Addendum Date: 03/01/20 Mrs. Elvi Agustin' history and physical dated 01/23/2020 is confirmed as being up-to-date with no changes to her recent history or examination.
--- NOTE | 2020-03-01 13:29 | P.HPADDEND ---
H&P Addendum H&P Addendum Date: 03/01/20 Elvi's INR came back as 2.0. With her INR being this side, I recommended that we postpone the operation and reschedule her for this coming Sunday. She was given instructions for bridging with Lovenox between now and then and continuing off Coumadin until the operation. We will order a new INR on arrival on Sunday.
[2020-03-01 14:32] LABS: Calcium 9.4 mg/dL (8.4-10.2)
--- NOTE | 2020-03-02 06:20 | P.ANPRN ---
Procedure Note - Anesthesia - Nerve Block Performed Right Adductor Canal Infusion Time Out Performed: Yes Date of Procedure: 03/02/20 Procedure Start Time: 12:00 Procedure Stop Time: 12:10 Location of Patient: PreOp Indication: Acute Post-Operative Pain, Dx/Pain Location, Requested by Surgeon Sedation Type: Sedate with meaningful contact maintained Preparation: Sterile Prep, Sterile Dressing Position: Supine Catheter: Indwelling Needle Types: Pajunk Needle Gauge: 21 Ultrasound used to visualize needle placement: Yes Ultrasound used to observe medication spread: Yes Injectate: 0.5% Ropivacaine (see comment for volume) (15ml) Blood Aspirated: No Pain Paresthesia on Injection Noted: No Resistance on Injection: Normal Image Stored and Saved: Yes Events: Uneventful and Well Tolerated
== END 2020-03-01 12:56 ==
LOC: OR 10:34
PROVIDERS: ATTEND Orthopaedic Surgery
DX: M17.0 Bilateral primary osteoarthritis of knee (principal); Z53.8 Procedure and treatment not carried out for other reasons; E78.5 Hyperlipidemia, unspecified; E11.40 Type 2 diabetes mellitus with diabetic neuropathy, unspecified; N28.9 Disorder of kidney and ureter, unspecified; I11.0 Hypertensive heart disease with heart failure; I50.1 Left ventricular failure, unspecified; I09.9 Rheumatic heart disease, unspecified; J43.9 Emphysema, unspecified; E87.5 Hyperkalemia; Z88.6 Allergy status to analgesic agent; Z79.899 Other long term (current) drug therapy; Z79.01 Long term (current) use of anticoagulants; Z79.02 Long term (current) use of antithrombotics/antiplatelets; Z79.51 Long term (current) use of inhaled steroids; Z97.3 Presence of spectacles and contact lenses; Z87.19 Personal history of other diseases of the digestive system; Z86.718 Personal history of other venous thrombosis and embolism; Z98.890 Other specified postprocedural states; Z87.891 Personal history of nicotine dependence; Z95.2 Presence of prosthetic heart valve; Z86.73 Personal history of transient ischemic attack (TIA), and cerebral infarction without residual deficits; Z91.09 Other allergy status, other than to drugs and biological substances; Z88.5 Allergy status to narcotic agent; Z90.49 Acquired absence of other specified parts of digestive tract; Z95.1 Presence of aortocoronary bypass graft
CPT/HCPCS: 64448; 76942; 80048; 85610; J2250; J2405; J3010

== ENCOUNTER 2020-03-03 10:32 | Inpatient (IN) | payer MEDICARE, OTHER ==
[~2020-03-03 10:32] MED LIST changes: +DEXAMETHASONE SOD PHOSPHATE 10 MG/ML 1 ML VIAL IV ONE; -LACTATED RINGERS 1,000 ML IV SCH; +MIDAZOLAM 2 MG/2 ML VIAL IV PRN
[2020-03-03] MEDS: LACTATED RINGERS 1,000 ML IV SCH ×2 (11:24→17:11)
[2020-03-03 11:31] LABS: Glucose,Whole Blood 130 mg/dL (75-99)
[2020-03-03] MEDS ORDERED: ACETAMINOPHEN TAB 500 MG TAB ONE (11:39)
[2020-03-03] MEDS ORDERED: ONDANSETRON 4 MG/2 ML VIAL ONE (11:39)
[2020-03-03 11:48] LABS: Calcium 9.6 mg/dL (8.4-10.2); Potassium 4.7 mmol/L (3.5-5.1)
[2020-03-03 11:51] LABS: INR 1.6 (<1.2); Prothrombin Time 15.9 sec (9.0-12.0)
[2020-03-03] MEDS ORDERED: HYDROmorphone (PF) 1 MG/ML ONE (12:36)
[2020-03-03] MEDS ORDERED: PROPOFOL 10 MG/ML 20 ML VIAL IV ONE (12:36)
[2020-03-03] MEDS ORDERED: SODIUM CHLORIDE 0.9% 100 ML BAG ONE (12:36)
[2020-03-03] MEDS ORDERED: TRANEXAMIC ACID 1,000 MG/10 ML VIAL ONE (12:36)
[2020-03-03] MEDS ORDERED: LIDOCAINE 1% INJ 10MG/ML (20 ML MDV) ONE (12:36)
[2020-03-03] MEDS ORDERED: fentaNYL (PF) 50 MCG/ML 2 ML AMP ONE (12:36)
[2020-03-03] MEDS ORDERED: SUCCINYLCHOLINE CHLORIDE 100 MG/5 ML SYR IV ONE (12:36)
[2020-03-03] MEDS ORDERED: GLYCOPYRROLATE 0.2 MG/ML 2 ML VIAL ONE (12:36)
[2020-03-03] MEDS ORDERED: MIDAZOLAM 2 MG/2 ML VIAL ONE (12:36)
[2020-03-03] MEDS ORDERED: ROCURONIUM BROMIDE 10 MG/ML 5 ML VIAL IV ONE (12:36)
[2020-03-03] MEDS ORDERED: LACTATED RINGERS 1,000 ML IV ONE (13:45)
[2020-03-03] MEDS ORDERED: ONDANSETRON 4 MG/2 ML VIAL IVP PRN (15:25)
[2020-03-03] MEDS ORDERED: HYDROcodone/APAP 5-325MG 1 EACH TAB PO PRN (15:25)
[2020-03-03] MEDS ORDERED: NALOXONE 0.4 MG/ML 1 ML VIAL IV PRN (15:25)
[2020-03-03] MEDS ORDERED: HYDROmorphone 0.5 MG/0.5 ML SYRINGE IVP PRN ×2 (15:25)
[2020-03-03] MEDS ORDERED: ALBUTEROL NEBULIZED 2.5 MG/3 ML INHALATION ONE (15:26)
[2020-03-03 15:43] LABS: Glucose,Whole Blood 166 mg/dL (75-99)
[2020-03-03] MEDS: HYDROcodone/APAP 5-325MG 1 EACH TAB PO PRN (16:44)
--- NOTE | 2020-03-03 16:45 | XR ---
EXAMINATION TYPE: XR knee limited RT DATE OF EXAM: 03/03/2020 COMPARISON: None HISTORY: Postop knee replacement TECHNIQUE: 2 view right knee FINDINGS: Tibial and femoral components in place. No acute fractures are evident. Postsurgical change s are within soft tissues. IMPRESSION: 1. No acute fractures post knee replacement.
[2020-03-03 20:09] LABS: Glucose,Whole Blood 156 mg/dL (75-99)
[2020-03-03] MEDS: SENNOSIDES-DOCUSATE SODIUM 1 EACH TAB PO SCH (21:30)
[2020-03-03] MEDS: HYDROmorphone 0.5 MG/0.5 ML SYRINGE IVP PRN (22:23)
[2020-03-04] MEDS: HYDROmorphone 0.5 MG/0.5 ML SYRINGE IVP PRN ×5 (01:34→16:01)
[2020-03-04] MEDS: LACTATED RINGERS 1,000 ML IV SCH ×3 (01:40→08:55)
[2020-03-04 06:53] LABS: Glucose,Whole Blood 123 mg/dL (75-99)
[2020-03-04 08:57] LABS: Basophils % (A) 0 %; Eosinophils % (A) 0 %; HCT 27.8 % (34.0-46.0); Lymphocytes # (A) 0.7 k/uL (1.0-4.8); Lymphocytes % (A) 8 %; MCH 30.2 pg (25.0-35.0); MCHC 33.4 g/dL (31.0-37.0); MCV 90.5 fL (80.0-100.0); Mean Platelet Volume 11.5; Monocytes # (A) 0.5 k/uL (0-1.0); Monocytes % (A) 5 %; Neutrophils # (A) 7.9 k/uL (1.3-7.7); Neutrophils % (A) 84 %; Platelet Count 117 k/uL (150-450); RBC 3.08 m/uL (3.80-5.40); RDW 14.1 % (11.5-15.5); WBC 9.4 k/uL (3.8-10.6)
[2020-03-04] MEDS ORDERED: FUROSEMIDE 10 MG/ML 10 ML VIAL IV STA (09:01)
[2020-03-04 09:36] LABS: HGB 9.3 gm/dL (11.4-16.0)
[2020-03-04] MEDS ORDERED: FLUTICASONE 50MCG/SPRAY NASAL 16GM EA NOSTRIL PRN (10:03)
[2020-03-04] MEDS ORDERED: NITROGLYCERIN SL TABS 0.4 MG TAB SUBLINGUAL PRN (10:03)
[2020-03-04 10:05] LABS: Poikilocytosis (M) Present
--- NOTE | 2020-03-04 10:44 | P.PN ---
Subjective Progress Note Date: 03/04/20 This patient is a 69-year-old female that is status-post right total knee arthroplasty on 03/03/[address] Narvaez. Today is post-operative day #1. The patient is examined bedside. Patient states she has been up with physical therapy today, she was able to ambulate and do the stairs without issue. She did note she became short of breath while ambulating. She is voiding freely. She tolerated her breakfast well. She denies chest pain, nausea, vomiting, fevers, chills. Vital signs stable. Objective - Vital Signs Vital signs: Vital Signs Temp 98.3 F 03/04/20 07:00 Pulse 82 03/04/20 07:00 Resp 20 03/04/20 07:00 BP 126/58 03/04/20 07:00 Pulse Ox 93 L 03/04/20 07:00 Intake & Output 03/03/20 03/04/20 03/04/20 18:59 06:59 18:59 Intake Total 1550 1390 Output Total 50 Balance 1500 1390 Weight 86.5 kg Intake: IV 1550 Intake, IV Titration 1150 Amount Lactated Ringers 1,000 ml 1050 @ 100 mls/hr IV .Q10H DANIEL Rx#:[id number] ceFAZolin 2 gm In Sodium 100 Chloride 0.9% 50 ml @ 100 mls/hr IVPB Q8H DANIEL Rx#: [id number] Oral 240 Output: Estimated Blood Loss 50 Other: Voiding Method Toilet - Exam On examination, the patient is sitting up in the bedside chair in no apparent distress. She is alert and oriented 3. On inspection of the right knee, there is a clean, dry, intact Optifoam dressing in place. There is no bleeding or drainage through the dressing. The right lower extremity is warm and well perfused with brisk capillary refill distally. Patient has good strength and range of motion of the right ankle. Motor and sensory function appear intact. Calf is soft and nontender to palpation. - Labs CBC & Chem 7: 03/04/20 07:41 03/03/20 11:25 Labs: Abnormal Lab Results - Last 24 Hours (Table) 03/03/20 03/03/20 03/03/20 Range/Units 11:22 11:25 11:25 RBC (3.80-5.40) m/uL Hgb (11.4-16.0) gm/dL Hct (34.0-46.0) % Plt Count (150-450) k/uL Neutrophils # (1.3-7.7) k/uL Lymphocytes # (1.0-4.8) k/uL PT 15.9 H (9.0-12.0) sec INR 1.6 H (<1.2) BUN 26 H (7-17) mg/dL Creatinine 1.22 H (0.52-1.04) mg/dL Glucose 131 H (74-99) mg/dL POC Glucose (mg/dL) 130 H (75-99) mg/dL 03/03/20 03/03/20 03/04/20 Range/Units 15:41 20:05 06:51 RBC (3.80-5.40) m/uL Hgb (11.4-16.0) gm/dL Hct (34.0-46.0) % Plt Count (150-450) k/uL Neutrophils # (1.3-7.7) k/uL Lymphocytes # (1.0-4.8) k/uL PT (9.0-12.0) sec INR (<1.2) BUN (7-17) mg/dL Creatinine (0.52-1.04) mg/dL Glucose (74-99) mg/dL POC Glucose (mg/dL) 166 H 156 H 123 H (75-99) mg/dL 03/04/20 Range/Units 07:41 RBC 3.08 L (3.80-5.40) m/uL Hgb 9.3 L D (11.4-16.0) gm/dL Hct 27.8 L (34.0-46.0) % Plt Count 117 L (150-450) k/uL Neutrophils # 7.9 H (1.3-7.7) k/uL Lymphocytes # 0.7 L (1.0-4.8) k/uL PT (9.0-12.0) sec INR (<1.2) BUN (7-17) mg/dL Creatinine (0.52-1.04) mg/dL Glucose (74-99) mg/dL POC Glucose (mg/dL) (75-99) mg/dL Assessment and Plan Assessment: Status-post right total knee arthroplasty on 03/03/[address] Narvaez. Post- operative day #1. Plan: - Patient may bear weight to tolerance on the right lower extremity. Up with assistance, up with a walker. - Ice and elevate right knee for swelling and pain control. - Pain control as needed. - Medical management and anti-coagulation per Dr. Cook. Per cardiology, patient's Coumadin is to be bridged with lovenox post-operatively, which has been ordered by Dr. Cook. - 2 doses of post-operative antibiotics. - Anticipate discharge home with health services tomorrow, pending medical clearance.
[2020-03-04 12:08] LABS: Glucose,Whole Blood 110 mg/dL (75-99)
[2020-03-04 12:18] LABS: INR 1.6 (<1.2); Prothrombin Time 15.7 sec (9.0-12.0)
[2020-03-04] MEDS: ENOXAPARIN 80 MG/0.8 ML SYRINGE SQ SCH ×2 (13:40→20:19)
[2020-03-04] MEDS: SPIRONOLACTONE-HCTZ 25-25MG 1 EACH TAB PO SCH ×2 (13:51→20:19)
--- NOTE | 2020-03-04 15:53 | CONS ---
CONSULTATION CHIEF COMPLAINT: Arthritis, right knee. HISTORY OF PRESENT ILLNESS: This is another admission for this 69-year-old white female who came in for an elective right knee replacement. She has a long-standing history of rheumatic heart disease, mild congestive heart failure, coronary artery disease and COPD. She is admitted for an elective right knee replacement. Scheduling has been difficult because when she has come in for her procedures before she has been incompletely cleared of her anticoagulation. REVIEW OF SYSTEMS: She has had no headaches, neurologic problems, confusion, change in vision or hearing, shortness of breath, cough, hemoptysis, orthopnea, PND, abdominal pain, nausea, vomiting, hematemesis, melena, hematochezia, jaundice, hepatitis, cirrhosis, renal failure, frequency, urgency, dysuria, incontinence, etc. Past medical history, family history, and personal and social histories are detailed in her admitting note. ALLERGIES: She is ALLERGIC TO ULTRAM AND ASPIRIN. MEDICATIONS: She is on: 1. Pravastatin 80 mg once a day. 2. Coumadin 2 mg once a day. 3. Xanax 0.25 t.i.d. p.r.n. 4. Vitamin D 50,000 units once a month. 5. Lovenox bridge. 6. Zyloprim 300 mg once a day. 7. Febuxostat 80 mg once a day. 8. Carvedilol 3.125 twice a day. 9. Clopidogrel 75 once a day. 10.Spironolactone 25 mg 1-1/2 tablet a day. 11.Entresto 97-103 twice a day. 12.Ventolin HFA. 13.Updrafts with DuoNeb. 14.Lyrica 200 mg twice a day. 15.Symbicort 160 two puffs twice a day. 16.Lasix 40 mg once a day. 17.Omeprazole 20 mg once a day. PAST MEDICAL HISTORY: Her past medical history includes history of hypertension, type 2 diabetes, coronary artery disease, reactive airway disease, COPD, hyperlipidemia and arthritis. Prior hospitalizations have included an admission for mild CVA in 2015. Surgically she has had mitral valve replacement and a tubal ligation. She used to smoke, but does not any longer. PHYSICAL EXAMINATION: Blood pressure is 110/60 with a pulse of 83 and irregularly irregular, respirations of 18, and she is afebrile. In general she appeared to be slightly pale and in no acute distress. Skin was dry and lymph nodes were not enlarged. Head, ears, eyes, nose, mouth and throat were normal. Neck veins were not distended. Carotids were normal. Chest was clear but demonstrated decreased breath sounds throughout. Cardiac exam demonstrated what sounded like a sinus rhythm with no extra sounds. The abdomen is slightly protuberant, soft and nontender without any visceromegaly or masses. Bowel sounds are present. Extremities demonstrated the hypertrophic knee on the right. Neurologically she is intact. IMPRESSION: 1. Osteoarthritis of right knee. 2. Rheumatic heart disease with a history of congestive heart failure. 3. Previous cerebrovascular accident. 4. Hypertension. 5. Type 2 diabetes. PLAN: No recommended plans at this time. She will be placed on warfarin after her procedure and bridged with Lovenox. Thank you respectfully. DEANNE / SHANE: [id number] /
--- NOTE | 2020-03-04 15:56 | PN ---
PROGRESS NOTE DATE OF SERVICE: 03/04/2020 CHIEF COMPLAINT: Postoperative right knee. HISTORY OF PRESENT ILLNESS: This lady is having quite a bit of difficulty with edema and she is getting a little bit short of breath. She has had no fever, chills, cough, hemoptysis, palpitations, etc. PHYSICAL EXAMINATION: Vital signs are normal, but she is somewhat edematous. On the exam she has rales scattered throughout both lung lutz. The cardiac exam is normal and the dressings are dry on the right knee. IMPRESSION: 1. Status post right knee replacement. 2. Rheumatic heart disease. 3. Fluid overload. PLAN: 1. IV Lasix. 2. Resume her usual medications and continue to monitor her hydration and fluid balance. MMODL / IJN: [id number] /
[2020-03-04 17:03] LABS: Glucose,Whole Blood 101 mg/dL (75-99)
[2020-03-04] MEDS: HYDROcodone/APAP 5-325MG 1 EACH TAB PO PRN (18:58)
[2020-03-04] MEDS: SYMBICORT 160-4.5 MCG INHALER INHALATION SCH (19:27)
[2020-03-04 20:13] LABS: Glucose,Whole Blood 114 mg/dL (75-99)
[2020-03-04] MEDS: CLOPIDOGREL 75 MG TAB PO SCH (20:18)
[2020-03-04] MEDS: carvediloL 3.125 MG TAB PO SCH (20:18)
[2020-03-04] MEDS: PREGABALIN 100 MG CAP PO SCH (20:18)
[2020-03-04] MEDS: SENNOSIDES-DOCUSATE SODIUM 1 EACH TAB PO SCH (20:18)
[2020-03-04] MEDS: SACUBITRIL/VALSARTAN 97 MG-103 MG TABLET PO SCH (20:19)
[2020-03-04] MEDS ORDERED: FEBUXOSTAT 80 MG PO SCH (21:00)
[2020-03-05] MEDS: HYDROcodone/APAP 5-325MG 1 EACH TAB PO PRN ×2 (01:11→07:24)
[2020-03-05] MEDS: LACTATED RINGERS 1,000 ML IV SCH (06:15)
[2020-03-05] MEDS: PANTOPRAZOLE 40 MG TABLET PO SCH (07:26)
[2020-03-05] MEDS: SACUBITRIL/VALSARTAN 97 MG-103 MG TABLET PO SCH ×2 (07:26→22:12)
[2020-03-05] MEDS: allopurinoL 300 MG TAB PO SCH (07:26)
[2020-03-05] MEDS: SPIRONOLACTONE-HCTZ 25-25MG 1 EACH TAB PO SCH ×2 (07:26→22:12)
[2020-03-05] MEDS: PREGABALIN 100 MG CAP PO SCH ×2 (07:26→22:05)
[2020-03-05] MEDS: ENOXAPARIN 80 MG/0.8 ML SYRINGE SQ SCH (07:26)
[2020-03-05 07:28] LABS: Glucose,Whole Blood 119 mg/dL (75-99)
[2020-03-05 08:59] LABS: Basophils % (A) 1 %; Eosinophils # (A) 0.2 k/uL (0-0.7); Eosinophils % (A) 4 %; HCT 28.4 % (34.0-46.0); HGB 9.6 gm/dL (11.4-16.0); Lymphocytes # (A) 0.7 k/uL (1.0-4.8); Lymphocytes % (A) 13 %; MCH 30.6 pg (25.0-35.0); MCHC 33.7 g/dL (31.0-37.0); Mean Platelet Volume 11.1; Monocytes # (A) 0.4 k/uL (0-1.0); Monocytes % (A) 8 %; Neutrophils # (A) 3.8 k/uL (1.3-7.7); Neutrophils % (A) 72 %; Platelet Count 105 k/uL (150-450); RBC 3.12 m/uL (3.80-5.40); RDW 14.3 % (11.5-15.5); WBC 5.3 k/uL (3.8-10.6)
[2020-03-05] MEDS ORDERED: FUROSEMIDE 40 MG TAB PO SCH (09:00)
[2020-03-05 09:10] LABS: INR 1.6 (<1.2); Prothrombin Time 15.5 sec (9.0-12.0)
--- NOTE | 2020-03-05 09:15 | P.PN ---
Subjective Progress Note Date: 03/05/20 This patient is a 69-year-old female that is status-post right total knee arthroplasty on 03/03/[address] Narvaez. Today is post-operative day #2. The patient is examined bedside. Patient states her is currently well-controlled. She has been working with physical therapy and ambulating with a walker without issue. Patient notes she is still experiencing shortness of breath with ambulation. Per nursing, patient's O2 was down to 80 after she walked to the bathroom. Patient otherwise is feeling well. She notes mild nausea with eating. She is tolerating her diet well. She is voiding freely. Patient denies fevers, chills, numbness or tingling of the operative leg. Vital signs currently stable. Objective - Vital Signs Vital signs: Vital Signs Temp 98.4 F 03/05/20 07:46 Pulse 80 03/05/20 07:46 Resp 20 03/05/20 08:00 BP 149/65 03/05/20 07:46 Pulse Ox 93 L 03/05/20 07:46 Intake & Output 03/04/20 03/05/20 03/05/20 18:59 06:59 18:59 Intake Total 200 460 200 Balance 200 460 200 Intake: Intake, IV Titration 240 Amount Lactated Ringers 1,000 ml 240 @ 20 mls/hr IV .Q24H [facility] Rx#:[id number] Oral 200 220 200 Other: Voiding Method Toilet Toilet # Voids 4 1 - Exam On examination, the patient is sitting up in the bedside chair in no apparent distress. She is alert and oriented 3. On inspection of the right knee, there is a clean, dry, intact Optifoam dressing in place. There is swelling of the knee. There is no bleeding or drainage through the dressing. The right lower extremity is warm and well perfu sed with brisk capillary refill distally. Patient has good strength and range of motion of the right ankle. Motor and sensory function appear intact. Calf is soft and nontender to palpation. - Labs CBC & Chem 7: 03/05/20 08:19 03/03/20 11:25 Labs: Abnormal Lab Results - Last 24 Hours (Table) 03/04/20 03/04/20 03/04/20 Range/Units 07:41 10:53 11:45 RBC 3.08 L (3.80-5.40) m/uL Hgb 9.3 L D (11.4-16.0) gm/dL Hct 27.8 L (34.0-46.0) % Plt Count 117 L (150-450) k/uL Neutrophils # 7.9 H (1.3-7.7) k/uL Lymphocytes # 0.7 L (1.0-4.8) k/uL PT 15.7 H (9.0-12.0) sec INR 1.6 H (<1.2) POC Glucose (mg/dL) 110 H (75-99) mg/dL 03/04/20 03/04/20 03/05/20 Range/Units 16:57 20:11 07:26 RBC (3.80-5.40) m/uL Hgb (11.4-16.0) gm/dL Hct (34.0-46.0) % Plt Count (150-450) k/uL Neutrophils # (1.3-7.7) k/uL Lymphocytes # (1.0-4.8) k/uL PT (9.0-12.0) sec INR (<1.2) POC Glucose (mg/dL) 101 H 114 H 119 H (75-99) mg/dL 03/05/20 Range/Units 08:19 RBC 3.12 L (3.80-5.40) m/uL Hgb 9.6 L (11.4-16.0) gm/dL Hct 28.4 L (34.0-46.0) % Plt Count 105 L (150-450) k/uL Neutrophils # (1.3-7.7) k/uL Lymphocytes # 0.7 L (1.0-4.8) k/uL PT (9.0-12.0) sec INR (<1.2) POC Glucose (mg/dL) (75-99) mg/dL Assessment and Plan Assessment: Status-post right total knee arthroplasty on 03/03/[address] Narvaez. Post- operative day #2. Plan: - Patient may bear weight to tolerance on the right lower extremity. Up with assistance, up with a walker. - Physical therapy for gait and balance training. - Ice and elevate right knee for swelling and pain control. - Pain control as needed. - Medical management and anti-coagulation per Dr. Cook. Per cardiology, patient's Coumadin is to be bridged with lovenox post-operatively, which has been ordered by Dr. Cook. - Anticipate discharge home with health services tomorrow, pending medical clearance.
[2020-03-05] MEDS: SYMBICORT 160-4.5 MCG INHALER INHALATION SCH ×2 (09:25→21:00)
--- NOTE | 2020-03-05 11:26 | US ---
EXAMINATION TYPE: US venous doppler duplex LE RT DATE OF EXAM: 03/05/2020 11:10 AM COMPARISON: US 03/03/2019 CLINICAL HISTORY: post op. Rt leg pain and swelling x 2 days s/p post op Rt knee replacement 3 days a go; SOB; Pt on plavix SIDE PERFORMED: Right TECHNIQUE: The lower extremity deep venous system is examined utilizing real time linear array sonog perez with graded compression, doppler sonography and color-flow sonography. VESSELS IMAGED: External Iliac Vein (EIV) Common Femoral Vein Deep Femoral Vein Greater Saphenous Vein * Femoral Vein Popliteal Vein Small Saphenous Vein * Proximal Calf Veins (* superficial vessels) Limited visualization due to swelling from 3 days post op knee replacement Right Leg: Negative for DVT IMPRESSION: No evidence for DVT at this time.
[2020-03-05] MEDS: hydrOXYzine pamoate 25 MG CAP PO PRN ×2 (12:24→18:20)
[2020-03-05 12:26] LABS: Glucose,Whole Blood 101 mg/dL (75-99)
[2020-03-05 12:35] LABS: Calcium 8.7 mg/dL (8.4-10.2); Potassium 4.3 mmol/L (3.5-5.1)
[2020-03-05] MEDS: HYDROcodone/APAP 10-325MG 1 EACH TAB PO PRN ×2 (12:45→18:17)
[2020-03-05] MEDS ORDERED: FUROSEMIDE 10 MG/ML 10 ML VIAL IV STA (13:45)
--- NOTE | 2020-03-05 13:58 | CDI ---
Documentation Clarification Form Date: 03/05/2020 01:30:40 PM From: Ariadna LamarCIPRIANO barnes, CCDS Admit Date: 03/05/2020 11:18:00 AM Patient Name: Elvi Agustin Visit Number: [id number] Discharge Date: ATTENTION: The Clinical Documentation Specialists (CDI) and [facility] Coding Staff appreciate your assistance in clarifying documentation. Please respond to the clarification below the line at the bottom and electronically sign. The CDI & [facility] Coding staff will review the response and follow-up if needed. Please note: Queries are made part of the Legal Health Record. If you have any questions, please contact the author of this message via ITS. Dr. Antione Cook: CHF is documented in the Medical Management Consult in the patient's History. Fluid overload, SOB & edema is documented in the 03/04 & 03/05 Progress Notes. Per the 03/04 Orthopedic Progress Note: The patient became SOB while ambulating. Per the 03/05 Medical Management Progress Note: "This lady is having quite a bit of difficulty with edema and she is getting a little bit short of breath." History/Risk Factors: Rheumatic heart disease, Mild Congestive Heart Failure, Coronary Artery Disease and COPD. Clinical Indicators: Patient presented on 03/03 for an elective Right Total Knee Arthroplasty. VS 03/05: T 98.4, P 699 - 80, R 16 - 24, BP 122/59 - 144/65, PO 94 2Lnc - 80 RA - 93 RA. BNP: Not done this admission. Echocardiogram Results: (most recent 06/22/2015): Mild MR, Mild TR, Mild pulmonary hypertension, Systolic mildly impaired w/EF 45-50%. No recent ECHO. Chest X Ray: No CXR this admission. US Venous Doppler lower extremities 03/05 for SOB & right leg pain: No evidence of DVT. Treatment 03/04: INH Symbicort, O2 2Lnc. 03/05: po Lasix 80 mg BID. In your professional opinion, can you please clarify the acuity and type of CHF if known? Systolic Heart Failure: o Acute o Chronic o Acute on Chronic Other Heart Failure, please specify: Unable to Determine Other, please specify (Last Revision: October 2017) MTDD
--- NOTE | 2020-03-05 14:22 | XR ---
EXAMINATION TYPE: XR chest 2V DATE OF EXAM: 03/05/2020 COMPARISON: 01/06/2017 HISTORY: Shortness of breath TECHNIQUE: Frontal and lateral views of the chest are obtained. FINDINGS: Scattered senescent parenchymal changes noted. Hyperinflation compatible with COPD. No evidence for infiltrate. No evidence for atelectasis. Mild cardiomegaly with pulmonary venous congestion and Tonny B-lines. Mediastinal structures are stable and grossly unremarkable. No evidence for hilar prominence. Degenerative changes dorsal spine. IMPRESSION: 1. Mild cardiomegaly with pulmonary venous congestion and Tonny B-lines.
--- NOTE | 2020-03-05 15:15 | NM ---
EXAMINATION TYPE: NM pul vent and perfuse DATE OF EXAM: 03/05/2020 COMPARISON: NONE HISTORY: Shortness Breath TECHNIQUE: Utilizing inhalation of 67.1 mCi Tc 99m DTPA aerosol and intravenous injection of 5 mCi o f Tc 99m MAA, ventilation and perfusion images are acquired post injection in multiple projections. FINDINGS: Normal radiotracer distribution is noted in the lungs. There is no evidence of mismatched defects. IMPRESSION: Very low probability for pulmonary embolism.
--- NOTE | 2020-03-05 16:00 | PN ---
PROGRESS NOTE CHIEF COMPLAINT: Status post right knee replacement and shortness of breath with fluid overload. HISTORY OF PRESENT ILLNESS: This lady is doing a little bit better than yesterday, but she is still short of breath and pulse ox is still difficult to maintain. She denies any chest pain, fever and chills, pleurisy, etc. PHYSICAL EXAMINATION: She remains slightly pale and face is somewhat edematous, but it looks better than yesterday. Her breath sounds are diminished with scattered rales. Cardiac exam is unchanged and the abdomen is soft and nontender. Right leg is quite swollen secondary to her surgery. Her incision looks good. IMPRESSION: 1. Status post right knee replacement. 2. Rheumatic heart disease. 3. Fluid overload. 4. Congestive heart failure. PLAN: 1. Increase Lasix. 2. Orthopedics wants a CTA and V/Q scan will be ordered due to her renal failure. MMODL / IJN: [id number] /
[2020-03-05] MEDS: FUROSEMIDE 80 MG TAB PO SCH (16:50)
[2020-03-05 17:11] LABS: Glucose,Whole Blood 131 mg/dL (75-99)
[2020-03-05] MEDS ORDERED: WARFARIN 2 MG TAB PO SCH (18:00)
[2020-03-05 20:23] LABS: Glucose,Whole Blood 129 mg/dL (75-99)
[2020-03-05] MEDS: IPRATROPIUM-ALBUTEROL 3 ML NEB INHALATION PRN (21:00)
[2020-03-05] MEDS: SENNOSIDES-DOCUSATE SODIUM 1 EACH TAB PO SCH (22:04)
[2020-03-05] MEDS: CLOPIDOGREL 75 MG TAB PO SCH (22:05)
[2020-03-05] MEDS: carvediloL 3.125 MG TAB PO SCH (22:05)
[2020-03-06] MEDS: HYDROcodone/APAP 10-325MG 1 EACH TAB PO PRN ×5 (03:30→20:44)
[2020-03-06] MEDS: hydrOXYzine pamoate 25 MG CAP PO PRN ×4 (03:33→16:39)
[2020-03-06 07:33] LABS: Glucose,Whole Blood 126 mg/dL (75-99)
[2020-03-06] MEDS: PANTOPRAZOLE 40 MG TABLET PO SCH (07:43)
[2020-03-06 07:55] LABS: INR 1.3 (<1.2); Prothrombin Time 12.9 sec (9.0-12.0)
[2020-03-06] MEDS: SYMBICORT 160-4.5 MCG INHALER INHALATION SCH ×2 (08:07→20:30)
[2020-03-06 08:10] LABS: Basophils % (A) 1 %; Eosinophils # (A) 0.2 k/uL (0-0.7); Eosinophils % (A) 4 %; HCT 29.4 % (34.0-46.0); HGB 9.7 gm/dL (11.4-16.0); Lymphocytes # (A) 0.8 k/uL (1.0-4.8); Lymphocytes % (A) 15 %; MCH 29.9 pg (25.0-35.0); MCV 90.8 fL (80.0-100.0); Mean Platelet Volume 11.5; Monocytes # (A) 0.4 k/uL (0-1.0); Monocytes % (A) 8 %; Neutrophils # (A) 3.9 k/uL (1.3-7.7); Neutrophils % (A) 71 %; Platelet Count 122 k/uL (150-450); RBC 3.23 m/uL (3.80-5.40); RDW 14.3 % (11.5-15.5); WBC 5.5 k/uL (3.8-10.6)
[2020-03-06] MEDS: LACTATED RINGERS 1,000 ML IV SCH (08:42)
--- NOTE | 2020-03-06 08:54 | P.PN ---
Subjective Progress Note Date: 03/06/20 Principal diagnosis: Status post right total knee arthroplasty This is a 69 year-old female post right total knee arthroplasty. This is post- op day 3. The patient was evaluated at the bedside today. The patient denies nausea, vomiting, abdominal pain, shortness of breath, and chest pain this morning. She states her pain is controlled at this time. The patient has been up with physical therapy. Her VQ scan and Doppler were negative yesterday. She remains on 2 L of oxygen. Objective - Vital Signs Vital signs: Vital Signs Temp 99.0 F 03/06/20 07:34 Pulse 80 03/06/20 08:49 Resp 20 03/06/20 07:34 BP 96/59 03/06/20 08:49 Pulse Ox 96 03/06/20 07:34 Intake & Output 03/05/20 03/06/20 03/06/20 18:59 06:59 18:59 Intake Total 620 240 Output Total 950 Balance 620 -710 Intake: Oral 620 240 Output: Urine 950 Other: Voiding Method Toilet Toilet # Voids 3 1 1 - Exam The patient does not appear in acute distress. Alert and orientated x3. Dressing is intact, with a small amount of old drainage to the mid incision. Some ecchymosis is present around the incision site. Calf is soft and nontender. Foot and ankle motion is limited. Sensation and circulatory status is intact. - Labs CBC & Chem 7: 03/06/20 06:44 03/05/20 08:19 Labs: Abnormal Lab Results - Last 24 Hours (Table) 03/05/20 03/05/20 03/05/20 Range/Units 08:19 08:19 08:19 RBC 3.12 L (3.80-5.40) m/uL Hgb 9.6 L (11.4-16.0) gm/dL Hct 28.4 L (34.0-46.0) % Plt Count 105 L (150-450) k/uL Lymphocytes # 0.7 L (1.0-4.8) k/uL PT 15.5 H (9.0-12.0) sec INR 1.6 H (<1.2) Sodium 133 L (137-145) mmol/L BUN 40 H (7-17) mg/dL Creatinine 1.59 H (0.52-1.04) mg/dL Glucose 133 H (74-99) mg/dL POC Glucose (mg/dL) (75-99) mg/dL 03/05/20 03/05/20 03/05/20 Range/Units 12:21 17:08 20:20 RBC (3.80-5.40) m/uL Hgb (11.4-16.0) gm/dL Hct (34.0-46.0) % Plt Count (150-450) k/uL Lymphocytes # (1.0-4.8) k/uL PT (9.0-12.0) sec INR (<1.2) Sodium (137-145) mmol/L BUN (7-17) mg/dL Creatinine (0.52-1.04) mg/dL Glucose (74-99) mg/dL POC Glucose (mg/dL) 101 H 131 H 129 H (75-99) mg/dL 03/06/20 03/06/20 03/06/20 Range/Units 06:44 06:44 07:31 RBC 3.23 L (3.80-5.40) m/uL Hgb 9.7 L (11.4-16.0) gm/dL Hct 29.4 L (34.0-46.0) % Plt Count 122 L (150-450) k/uL Lymphocytes # (1.0-4.8) k/uL PT 12.9 H (9.0-12.0) sec INR 1.3 H (<1.2) Sodium (137-145) mmol/L BUN (7-17) mg/dL Creatinine (0.52-1.04) mg/dL Glucose (74-99) mg/dL POC Glucose (mg/dL) 126 H (75-99) mg/dL Assessment and Plan (1) Osteoarthritis of right knee Current Visit: Yes Status: Acute Code(s): M17.11 - UNILATERAL PRIMARY OSTEOARTHRITIS, RIGHT KNEE SNOMED Code(s): 994165918037737 (2) Status post total right knee replacement Current Visit: Yes Status: Acute Code(s): Z96.651 - PRESENCE OF RIGHT ARTIFICIAL KNEE JOINT SNOMED Code(s): 3053784977838 Plan: 1. Continue pain control 2. Anticoagulation with Lovenox and Coumadin, managed by Dr. Cook 3. Continue physical therapy and ambulation 4. Anticipate discharge home with homecare when cleared by internal medicine
[2020-03-06 08:59] LABS: Large Platelets Present
--- NOTE | 2020-03-06 09:22 | P.OP ---
Date of Procedure: 03/03/20 Procedure(s) Performed: PREOPERATIVE DIAGNOSIS: Right knee severe osteoarthritis with mild genu varum POSTOPERATIVE DIAGNOSIS: Right knee severe osteoarthritis with mild genu varum OPERATION: Right knee cemented total replacement arthroplasty. ANESTHESIA: Spinal ESTIMATED BLOOD LOSS: 50 ml. PROMOTIONS ASSISTANT: Gaviota Polanco PA-C (assistance with: patient positioning, retraction, exposure, hemostasis, leg positioning, implantation, irrigation, closure, dressing) COMPLICATIONS: None apparent. COMPONENTS IMPLANTED: Journey II BCS total knee system from [employer]phIsabella OliverAndrew INDICATIONS: Mrs. Agustin is a 69-year-old female with a history of right knee osteoarthritis. The patient's knee is end-stage, and conservative management has failed. The operation of knee replacement has been discussed at length in the office, as well as potential risks and complications. These are inclusive of, but not limited to: bleeding, infection, scarring, discomfort, blood vessel and nerve damage, need for further surgery, failure to relieve symptoms, persistence, recurrence, or worsening of problems, loosening, dislocation, wear, blood clot, pulmonary embolism, , gait dysfunction, stiffness, and other risks as discussed in the office. The patient elects to proceed and the consent form has been signed. PROCEDURE: The patient was taken to the operating room and positioned on the operating room table in the supine position. Anesthesia was initiated. Care was taken to make sure that all pressure points were adequately padded. The operative lower extremity was prepped and draped in the usual aseptic fashion using ChloraPrep. Ioban drape was used for the case and the patient received intravenous antibiotics within one hour of the incision. A pneumotourniquet and leg balbuena were used for the case. The limb was exsanguinated with an Esmarch bandage and the tourniquet was inflated to 350 mmHg. Time-out was called confirming the patient's identity, side, procedure and administration of antibiotics and tranexamic acid. The incision was then created midline directly over the right knee, carried down through skin and into the subcutaneous tissues and down to fascia. Full thickness subcutaneous medial flap was developed. Medial parapatellar arthrotomy was performed and the interior of the knee was inspected. There was end-stage osteoarthritis of the knee with a mild to moderate genu valgum type deformity. The fat pad was excised and proximal medial release on the tibia was completed using meticulous dissection and a curved osteotome. The anterior cruciate ligament was taken down. Note was made of significant attrition of the anterior and significant degenerative appearance of the cruciate ligaments. The exposure was excellent. The knee was flexed 90 degrees and the patella was everted. The [employer] pre- made distal cutting block was attached and pinned into position. The planned cut was analyzed visually and with the alignment urszula and found to be satisfactory without the need for any adjustment. The oscillating saw was then used to make the distal femoral cut and make the alignment holes for the 5 in 1 block. This cut was confirmed to be flat with the flat end of an osteotome. The 5 in 1 block was then used to create the anterior posterior condylar resections and the chamfer cuts. The retractors were placed around the tibia and the tibial surface was addressed. The [employer]aire pre-made guide was placed onto the exposed tibial surface and pinned into position to matheus the rotational alignment. The alignment of the guide was checked for depth of plannned resection, slope, and varus valgus. Guide was confirmed to be in good position and the tibial cut was then created with protection of the posterior neurovascular structures and the collateral ligaments. The tibial cut surface was removed and sized. Spacer block technique was then used to confirm that the flexion and extension gaps were equal. Soft tissue releases and adjustment of the tibial and/or femoral cuts were made, as necessary, until the gaps were equal. This included release of the posterior cruciate ligament, which was excessively tight in this patient. Prior to placing trial components, anesthetic solution consisting of ropivicaine with epinephrine, ketorolac, and clonidine was injected carefully and methodically in a grid pattern using aspiration technique into the soft tissue around the knee circumferentially, starting with the deeper tissues first and progressing to fascia, and then finally the skin/subcutaneous tissue. Particular care was taken when injecting the posterior capsule, with avoidance of the midline posterior area. The trial components were inserted. The tibial tray was allowed to self center and the patella was noted to track very well. The position of the tibial component was marked and noted to be nearly exactly aligned with the pre-drilled holes from the [employer] guide. The tibia was then finished for a stemmed tibial component. Patellar resurfacing was performed using a reamer. The size of the required patellar component was estimated and the patellar surface was then reamed down to a residual thickness which would recreate the [place] thickness with the component. The exact placement of the patellar component was adjusted for position based on preoperative x-rays and intraoperative findings. Trial components were removed and the cut surfaces of the bone were pulse lavaged thoroughly and dried. Cement was mixed on the back table and applied to the final components. Cement was then applied to the tibial surface and pressurized into the surface using finger pressurization technique. The tibial component was then applied and excess cement was removed after it was impacted securely and noted to be flush with the cut surface. In similar fashion, the cement was applied to the cut femoral surface, pressurized in using finger pressurization and the component was impacted into place. Excess cement was removed. The polyethylene spacer was then implanted and locked into position. The patellar component was then applied in similar technique and a patellar clamp was used to hold the patella in place as the cement hardened. Once the cement had fully hardened, the knee was reinspected. Any other cement extrusion was removed and final kinematic testing showed range of motion from 0 to 130 degrees with excellent stability, both medially and laterally and appropriate alignment of the leg. Patellar tracking was excellent. The knee was then thoroughly pulse lavaged with normal saline. The tourniquet was deflated and hemostasis was obtained with electrocautery and IV tranexamic acid, 1 g given at the start of the operation and 1 g at the start of closure. Closure was with #2 Ethibond in the fascia/capsule and supplemented with #2 Quill, 2-0 Vicryl suture was used for the subcutaneous tissues and 3-0 Quill for the skin. Dermabond/Steri-Strips were then applied. A lightly compressive dressing was applied using Webril and an Pardeep wrap. The patient was then transferred to stretcher and taken to the recovery room in stable condition. Sponge and needle counts were correct.
[2020-03-06] MEDS: ENOXAPARIN 80 MG/0.8 ML SYRINGE SQ SCH (09:54)
[2020-03-06] MEDS: allopurinoL 300 MG TAB PO SCH (09:55)
[2020-03-06] MEDS: PREGABALIN 100 MG CAP PO SCH ×2 (09:55→20:35)
[2020-03-06 10:48] LABS: Calcium 8.5 mg/dL (8.4-10.2); Potassium 4.4 mmol/L (3.5-5.1); Total Bilirubin 0.7 mg/dL (0.2-1.3); Total Protein 5.4 g/dL (6.3-8.2)
[2020-03-06] MEDS: SACUBITRIL/VALSARTAN 97 MG-103 MG TABLET PO SCH ×2 (11:11→20:35)
[2020-03-06] MEDS: FUROSEMIDE 80 MG TAB PO SCH ×2 (11:11→16:42)
[2020-03-06] MEDS: SPIRONOLACTONE-HCTZ 25-25MG 1 EACH TAB PO SCH ×2 (11:11→20:35)
--- NOTE | 2020-03-06 11:15 | MISC ---
MISCELLANOUS REPORT QUERY: Acute on chronic heart failure. MMODL / IJN: [id number] /
[2020-03-06] MEDS: SODIUM CHLORIDE 0.9% 1,000 ML IV SCH ×2 (11:16→23:01)
[2020-03-06 11:18] LABS: Glucose,Whole Blood 96 mg/dL (75-99)
--- NOTE | 2020-03-06 14:24 | XR ---
EXAMINATION TYPE: XR chest 2V DATE OF EXAM: 03/06/2020 COMPARISON: 03/05/2020 INDICATION: CHF, COPD, short of breath TECHNIQUE: Frontal and lateral views of the chest are obtained. FINDINGS: The heart size is mildly prominent. The pulmonary vasculature is normal. Mild infiltrate is at the left base. Correlate for subsegmental atelectasis. Mild right lower lobe in filtrate may be present. Small posterior pleural effusions are present.. IMPRESSION: 1. Mild bibasilar infiltrates appear more suggestive for subsegmental atelectasis. Atypical pulmonary edema could be considered. 2. Small posterior pleural effusions. 3. Cardiomegaly.
--- NOTE | 2020-03-06 15:57 | PN ---
PROGRESS NOTE DATE OF SERVICE: March 06, 2020. CHIEF COMPLAINT: Congestive heart failure. HISTORY OF PRESENT ILLNESS: This lady is breathing much better. However, her blood pressure is starting to drop into the 90s and 80s. She has had no chest pain, palpitations, etc. PHYSICAL EXAMINATION: She is much less edematous. Color is improved. Breath sounds are greatly diminished. There is still scattered rales and rhonchi. Cardiac exam is same. Abdomen is soft, nontender. There is no further bleeding from the right knee. IMPRESSION: 1. Congestive heart failure. 2. Hypotension. 3. Status post right TKA. PLAN: 1. Withhold diuretics diuretics, Entresto and her beta grady. 2. Increase IV fluids. MMODL / IJN: [id number] /
[2020-03-06 17:10] LABS: Glucose,Whole Blood 122 mg/dL (75-99)
[2020-03-06] MEDS ORDERED: WARFARIN 2 MG TAB PO ONE (18:00)
[2020-03-06 20:31] LABS: Glucose,Whole Blood 145 mg/dL (75-99)
[2020-03-06] MEDS: SENNOSIDES-DOCUSATE SODIUM 1 EACH TAB PO SCH (20:35)
[2020-03-06] MEDS: CLOPIDOGREL 75 MG TAB PO SCH (20:35)
[2020-03-06] MEDS: carvediloL 3.125 MG TAB PO SCH (20:35)
[2020-03-07] MEDS: LACTATED RINGERS 1,000 ML IV SCH (04:07)
[2020-03-07] MEDS: HYDROcodone/APAP 10-325MG 1 EACH TAB PO PRN ×4 (05:10→21:41)
[2020-03-07] MEDS: hydrOXYzine pamoate 25 MG CAP PO PRN ×3 (05:18→15:08)
[2020-03-07 07:12] LABS: Glucose,Whole Blood 121 mg/dL (75-99)
[2020-03-07] MEDS: SYMBICORT 160-4.5 MCG INHALER INHALATION SCH ×2 (07:30→20:22)
[2020-03-07] MEDS: allopurinoL 300 MG TAB PO SCH (08:47)
[2020-03-07] MEDS: PANTOPRAZOLE 40 MG TABLET PO SCH (08:47)
[2020-03-07] MEDS: PREGABALIN 100 MG CAP PO SCH ×2 (08:47→21:42)
[2020-03-07] MEDS: SACUBITRIL/VALSARTAN 97 MG-103 MG TABLET PO SCH ×2 (08:48→21:44)
[2020-03-07] MEDS: SPIRONOLACTONE-HCTZ 25-25MG 1 EACH TAB PO SCH (08:48)
[2020-03-07] MEDS: FUROSEMIDE 80 MG TAB PO SCH (08:48)
[2020-03-07] MEDS: ENOXAPARIN 80 MG/0.8 ML SYRINGE SQ SCH (08:48)
--- NOTE | 2020-03-07 09:03 | P.PN ---
Subjective Progress Note Date: 03/07/20 Principal diagnosis: Status post right total knee arthroplasty This is a 69 year-old female post right total knee arthroplasty. This is post- op day 4. The patient was evaluated at the bedside today. The patient denies nausea, vomiting, abdominal pain, shortness of breath, and chest pain this morning. She states her pain is controlled at this time. The patient has been up with physical therapy. She remains on 2 L of oxygen. Her blood pressures have improved. Objective - Vital Signs Vital signs: Vital Signs Temp 98.1 F 03/07/20 07:00 Pulse 75 03/07/20 08:47 Resp 18 03/07/20 07:00 BP 119/67 03/07/20 08:47 Pulse Ox 95 03/07/20 07:00 Intake & Output 03/06/20 03/07/20 03/07/20 18:59 06:59 18:59 Intake Total 80 Balance 80 Intake: IV 80 Sodium Chloride 0.9% 1, 80 000 ml @ 80 mls/hr IV . [id number] [facility] Rx#:[id number] Other: Voiding Method Toilet Bedside Commode # Voids 2 2 - Exam The patient does not appear in acute distress. Alert and orientated x3. Dressing is intact, with a small amount of old drainage to the mid incision. Some ecchymosis is present around the incision site. Calf is soft and nontender. Foot and ankle motion is limited. Sensation and circulatory status is intact. - Labs CBC & Chem 7: 03/06/20 06:44 03/06/20 06:44 Labs: Abnormal Lab Results - Last 24 Hours (Table) 03/06/20 03/06/20 03/06/20 Range/Units 06:44 17:08 20:29 Sodium 134 L (137-145) mmol/L BUN 44 H (7-17) mg/dL Creatinine 1.59 H (0.52-1.04) mg/dL Glucose 107 H (74-99) mg/dL POC Glucose (mg/dL) 122 H 145 H (75-99) mg/dL Total Protein 5.4 L (6.3-8.2) g/dL Albumin 3.0 L (3.5-5.0) g/dL 03/07/20 Range/Units 07:10 Sodium (137-145) mmol/L BUN (7-17) mg/dL Creatinine (0.52-1.04) mg/dL Glucose (74-99) mg/dL POC Glucose (mg/dL) 121 H (75-99) mg/dL Total Protein (6.3-8.2) g/dL Albumin (3.5-5.0) g/dL Assessment and Plan (1) Osteoarthritis of right knee Current Visit: Yes Status: Acute Code(s): M17.11 - UNILATERAL PRIMARY OSTEOARTHRITIS, RIGHT KNEE SNOMED Code(s): 011390886395700 (2) Status post total right knee replacement Current Visit: Yes Status: Acute Code(s): Z96.651 - PRESENCE OF RIGHT ARTIFICIAL KNEE JOINT SNOMED Code(s): 8154689371299 Plan: 1. Continue pain control 2. Anticoagulation with Lovenox and Coumadin, managed by Dr. Cook 3. Continue physical therapy and ambulation 4. Anticipate discharge home with homecare when cleared by internal medicine
[2020-03-07 09:12] LABS: INR 1.3 (<1.2); Prothrombin Time 12.6 sec (9.0-12.0)
[2020-03-07 09:24] LABS: Basophils % (A) 1 %; Eosinophils # (A) 0.3 k/uL (0-0.7); Eosinophils % (A) 5 %; HCT 28.1 % (34.0-46.0); HGB 9.2 gm/dL (11.4-16.0); Lymphocytes # (A) 0.8 k/uL (1.0-4.8); Lymphocytes % (A) 14 %; MCH 30.3 pg (25.0-35.0); MCHC 32.6 g/dL (31.0-37.0); MCV 92.8 fL (80.0-100.0); Mean Platelet Volume 11.1; Monocytes # (A) 0.4 k/uL (0-1.0); Monocytes % (A) 6 %; Neutrophils # (A) 3.9 k/uL (1.3-7.7); Neutrophils % (A) 72 %; Platelet Count 120 k/uL (150-450); RBC 3.03 m/uL (3.80-5.40); RDW 14.6 % (11.5-15.5); WBC 5.4 k/uL (3.8-10.6)
[2020-03-07 09:30] LABS: Albumin 2.9 g/dL (3.5-5.0); Calcium 8.1 mg/dL (8.4-10.2); Potassium 4.5 mmol/L (3.5-5.1); Total Bilirubin 0.7 mg/dL (0.2-1.3); Total Protein 5.2 g/dL (6.3-8.2)
[2020-03-07 10:26] LABS: Large Platelets Present
[2020-03-07] MEDS: SODIUM CHLORIDE 0.9% 1,000 ML IV SCH (11:00)
[2020-03-07 11:39] LABS: Glucose,Whole Blood 114 mg/dL (75-99)
[2020-03-07] MEDS: FUROSEMIDE 40 MG TAB PO SCH (16:23)
[2020-03-07 16:50] LABS: Glucose,Whole Blood 113 mg/dL (75-99)
[2020-03-07] MEDS ORDERED: WARFARIN 5 MG TAB PO ONE (18:00)
[2020-03-07] MEDS: IPRATROPIUM-ALBUTEROL 3 ML NEB INHALATION PRN (20:23)
[2020-03-07 21:08] LABS: Glucose,Whole Blood 138 mg/dL (75-99)
[2020-03-07] MEDS: CLOPIDOGREL 75 MG TAB PO SCH (21:41)
[2020-03-07] MEDS: SENNOSIDES-DOCUSATE SODIUM 1 EACH TAB PO SCH (21:42)
[2020-03-07] MEDS: carvediloL 3.125 MG TAB PO SCH (21:42)
--- NOTE | 2020-03-08 02:34 | PN ---
PROGRESS NOTE DATE OF SERVICE: 03/07/2020 CHIEF COMPLAINT: Status post right knee replacement. HISTORY OF PRESENT ILLNESS: This lady is still having a lot of trouble with shortness of breath and wheezing. She responded to increased fluids yesterday and her blood pressure came up to normal. IV was then slowed and her Lasix will be reintroduced in a small or lower dose. PHYSICAL EXAMINATION: She is quite clear on examination. Cardiac exam is unchanged. Abdomen is soft, nontender. IMPRESSION: 1. Status post right knee replacement. 2. Congestive heart failure. 3. Rheumatic heart disease. PLAN: Continue to try to achieve maximum fluid balance to manage her congestive heart failure and get her home soon. MMODL / IJN: [id number] /
[2020-03-08] MEDS: LACTATED RINGERS 1,000 ML IV SCH (04:45)
[2020-03-08 07:12] LABS: Glucose,Whole Blood 124 mg/dL (75-99)
[2020-03-08] MEDS: allopurinoL 300 MG TAB PO SCH (07:41)
[2020-03-08] MEDS: PREGABALIN 100 MG CAP PO SCH ×2 (07:41→19:48)
[2020-03-08] MEDS: HYDROcodone/APAP 10-325MG 1 EACH TAB PO PRN ×4 (07:41→19:48)
[2020-03-08] MEDS: PANTOPRAZOLE 40 MG TABLET PO SCH (07:41)
[2020-03-08] MEDS: SACUBITRIL/VALSARTAN 97 MG-103 MG TABLET PO SCH ×2 (07:42→19:47)
[2020-03-08] MEDS: FUROSEMIDE 40 MG TAB PO SCH ×2 (07:42→16:21)
[2020-03-08] MEDS: ENOXAPARIN 80 MG/0.8 ML SYRINGE SQ SCH (07:42)
[2020-03-08] MEDS: SYMBICORT 160-4.5 MCG INHALER INHALATION SCH ×2 (08:15→20:47)
--- NOTE | 2020-03-08 11:07 | CDI ---
Documentation Clarification Form Date: 03/08/2020 10:54:10 AM From: Ariadna Lamar CCS, CCDS Admit Date: 03/05/2020 11:18:00 AM Patient Name: Elvi Agustin Visit Number: [id number] Discharge Date: ATTENTION: The Clinical Documentation Specialists (CDI) and [facility] Coding Staff appreciate your assistance in clarifying documentation. Please respond to the clarification below the line at the bottom and electronically sign. The CDI & [facility] Coding staff will review the response and follow-up if needed. Please note: Queries are made part of the Legal Health Record. If you have any questions, please contact the author of this message via ITS. Dr. Antione Coko: Hypotension is documented in the 03/06 Medical Management Progress Note: History/Risk Factors: Hypertension, CHF, Rheumatic heart disease, CVA, DM II and Osteoarthritis, Clinical Indicators: Patient presented on 03/03 for an elective Right Total Knee Arthroplasty. Hypotension is documented postoperatively on 03/06. Patients B/P 03/06: 76/44* - 103/67; 03/07: 115/58 - 139/59 Labs 03/06: Hgb 9.7*, Hct 29.4*, Pl Ct 122*, Na 134*, BUN 44^, Cr 1.59^, Glucose 107^ Treatment 03/03: IV Cefazolin, IV Zofran, I Decadron, IV Dilaudid, INH Albuterol, IV lactated ringers. 03/04: IV Lasix, INH Albuterol. 03/05: po Lasix, IV Lasix, po Coumadin. Per the 03/07 Medical Management Progress Note: Try to achieve maximum fluid balance to manage CHF. In your professional opinion, can you please specify the etiology of the hypotension if known? Iatrogenic Hypotension Drug Induced Hypotension Postoperative Hypotension: o Please specify cause & significance if known: Expected outcome of procedure Unexpected outcome of procedure. Other Condition, please specify Unable to determine (Last Revision: April 2017) MTDD
[2020-03-08 11:19] LABS: Glucose,Whole Blood 103 mg/dL (75-99)
[2020-03-08] MEDS: IPRATROPIUM-ALBUTEROL 3 ML NEB INHALATION PRN (11:25)
[2020-03-08 12:00] LABS: Basophils # (A) 0.1 k/uL (0-0.2); Basophils % (A) 1 %; Eosinophils # (A) 0.2 k/uL (0-0.7); Eosinophils % (A) 3 %; HCT 29.2 % (34.0-46.0); HGB 9.4 gm/dL (11.4-16.0); Lymphocytes # (A) 0.9 k/uL (1.0-4.8); Lymphocytes % (A) 15 %; MCH 29.5 pg (25.0-35.0); MCHC 32.3 g/dL (31.0-37.0); MCV 91.5 fL (80.0-100.0); Mean Platelet Volume 10.6; Monocytes # (A) 0.4 k/uL (0-1.0); Monocytes % (A) 6 %; Neutrophils # (A) 4.4 k/uL (1.3-7.7); Neutrophils % (A) 71 %; Platelet Count 153 k/uL (150-450); RBC 3.19 m/uL (3.80-5.40); RDW 14.4 % (11.5-15.5); WBC 6.1 k/uL (3.8-10.6)
[2020-03-08 12:10] LABS: INR 1.7 (<1.2); Prothrombin Time 16.6 sec (9.0-12.0)
[2020-03-08 12:11] LABS: Albumin 3.3 g/dL (3.5-5.0); Calcium 8.8 mg/dL (8.4-10.2); Potassium 4.7 mmol/L (3.5-5.1); Total Protein 5.8 g/dL (6.3-8.2)
--- NOTE | 2020-03-08 12:42 | P.PN ---
Subjective Progress Note Date: 03/08/20 Principal diagnosis: Post op TKA right knee This is a 69 year-old female post right total knee arthroplasty. This is post- op day 5. The patient was evaluated at the bedside today. The patient denies nausea, vomiting, abdominal pain and chest pain this morning. She is having some shortness of breath. She states her pain is controlled at this time. The patient has been up with physical therapy. She remains on 2 L of oxygen. Her pulse ox dropped to 90 or 91 with ambulation. Her blood pressures have improved. Objective - Vital Signs Vital signs: Vital Signs Temp 98.3 F 03/08/20 07:00 Pulse 75 03/08/20 09:38 Resp 20 03/08/20 07:00 BP 139/59 03/08/20 07:00 Pulse Ox 93 L 03/08/20 09:38 Intake & Output 03/07/20 03/08/20 03/08/20 18:59 06:59 18:59 Intake Total 320 1080 100 Balance 320 1080 100 Intake: IV 320 480 Sodium Chloride 0.9% 1, 320 480 000 ml @ 40 mls/hr IV . Q24H [facility] Rx#:[id number] Oral 600 100 Other: Voiding Method Bedside Commode Bedside Commode # Voids 1 1 - Exam This is a pleasant 69-year-old female in no acute distress. She is alert and oriented at this time. Exam of the lower extremities reveals the dressing is clean, dry and intact. She has full foot and ankle motion without difficulty or pain. Neurovascular status to the lower extremity is intact. - Labs CBC & Chem 7: 03/08/20 11:11 03/08/20 11:11 Labs: Abnormal Lab Results - Last 24 Hours (Table) 03/07/20 03/07/20 03/07/20 Range/Units 08:23 11:37 16:49 RBC 3.03 L (3.80-5.40) m/uL Hgb 9.2 L (11.4-16.0) gm/dL Hct 28.1 L (34.0-46.0) % Plt Count 120 L (150-450) k/uL Lymphocytes # 0.8 L (1.0-4.8) k/uL POC Glucose (mg/dL) 114 H 113 H (75-99) mg/dL 03/07/20 03/08/20 Range/Units 20:58 07:10 RBC (3.80-5.40) m/uL Hgb (11.4-16.0) gm/dL Hct (34.0-46.0) % Plt Count (150-450) k/uL Lymphocytes # (1.0-4.8) k/uL POC Glucose (mg/dL) 138 H 124 H (75-99) mg/dL Assessment and Plan (1) Osteoarthritis of right knee Current Visit: Yes Status: Acute Code(s): M17.11 - UNILATERAL PRIMARY OSTEOARTHRITIS, RIGHT KNEE SNOMED Code(s): 223495286695106 (2) Status post total right knee replacement Current Visit: Yes Status: Acute Code(s): Z96.651 - PRESENCE OF RIGHT ARTIFICIAL KNEE JOINT SNOMED Code(s): 7040465075643 Plan: The clinical findings are discussed the patient. Continue current care. She may be discharged when cleared medically.
[2020-03-08] MEDS: hydrOXYzine pamoate 25 MG CAP PO PRN ×3 (13:23→19:50)
[2020-03-08] MEDS: SODIUM CHLORIDE 0.9% 1,000 ML IV SCH (13:24)
--- NOTE | 2020-03-08 16:06 | XR ---
EXAMINATION TYPE: XR chest 2V DATE OF EXAM: 03/08/2020 COMPARISON: 03/06/2020 INDICATION: CHF TECHNIQUE: Frontal and lateral views of the chest are obtained. FINDINGS: The heart size is enlarged. The pulmonary vasculature is normal. Mild infiltrate is within the lingula. There is blunting left costophrenic angle. Sternotomy wires ar e in the midline.. IMPRESSION: 1. Cardiomegaly 2. Mild lingular infiltrate. Follow-up exams are recommended.
[2020-03-08 16:34] LABS: Glucose,Whole Blood 134 mg/dL (75-99)
--- NOTE | 2020-03-08 16:41 | PN ---
PROGRESS NOTE DATE OF SERVICE: 03/08/2020 CHIEF COMPLAINT: Congestive heart failure. HISTORY OF PRESENT ILLNESS: This lady is doing a little bit better. Breathing seems to be improved. She has had no chest pain, fever and chills, etc. The knee is not giving her any trouble and there is no sign of bleeding. PHYSICAL EXAMINATION: Edema is slightly less. Chest demonstrated scattered rales bilaterally. The cardiac exam is unchanged and the abdomen is soft, nontender. There is a small amount of dark, dry blood on the right knee dressing. IMPRESSION: 1. Congestive heart failure. 2. Rheumatic heart disease. 3. Status post right TKA. PLAN: Repeat laboratory studies and chest x-ray and hope that she will be improved enough to go home soon. MMODL / IJN: [id number] /
[2020-03-08] MEDS ORDERED: WARFARIN 2 MG TAB PO ONE (18:00)
[2020-03-08] MEDS: carvediloL 3.125 MG TAB PO SCH (19:47)
[2020-03-08] MEDS: SENNOSIDES-DOCUSATE SODIUM 1 EACH TAB PO SCH (19:47)
[2020-03-08] MEDS: CLOPIDOGREL 75 MG TAB PO SCH (19:47)
[2020-03-08 20:10] LABS: Glucose,Whole Blood 146 mg/dL (75-99)
--- NOTE | 2020-03-09 01:57 | MISC ---
MISCELLANOUS REPORT QUERY: Hypotension, iatrogenic hypotension due to diuretics. MMODL / IJN: [id number] /
[2020-03-09] MEDS: HYDROcodone/APAP 10-325MG 1 EACH TAB PO PRN ×3 (05:12→17:36)
[2020-03-09] MEDS: hydrOXYzine pamoate 25 MG CAP PO PRN (05:13)
[2020-03-09 07:23] LABS: Glucose,Whole Blood 134 mg/dL (75-99)
[2020-03-09] MEDS: allopurinoL 300 MG TAB PO SCH (08:12)
[2020-03-09] MEDS: PANTOPRAZOLE 40 MG TABLET PO SCH (08:12)
[2020-03-09] MEDS: FUROSEMIDE 40 MG TAB PO SCH (08:12)
[2020-03-09] MEDS: SACUBITRIL/VALSARTAN 97 MG-103 MG TABLET PO SCH ×3 (08:12→20:40)
[2020-03-09] MEDS: PREGABALIN 100 MG CAP PO SCH ×2 (08:13→20:39)
[2020-03-09] MEDS: ENOXAPARIN 80 MG/0.8 ML SYRINGE SQ SCH (08:13)
[2020-03-09 08:54] LABS: Basophils # (A) 0.1 k/uL (0-0.2); Basophils % (A) 1 %; Eosinophils # (A) 0.3 k/uL (0-0.7); Eosinophils % (A) 4 %; HCT 29.3 % (34.0-46.0); HGB 9.2 gm/dL (11.4-16.0); Hypochromasia Slight; Lymphocytes # (A) 1.2 k/uL (1.0-4.8); Lymphocytes % (A) 19 %; MCH 29.3 pg (25.0-35.0); MCHC 31.5 g/dL (31.0-37.0); Mean Platelet Volume 10.3; Monocytes # (A) 0.3 k/uL (0-1.0); Monocytes % (A) 5 %; Neutrophils # (A) 4.2 k/uL (1.3-7.7); Neutrophils % (A) 66 %; Platelet Count 154 k/uL (150-450); RBC 3.15 m/uL (3.80-5.40); RDW 14.4 % (11.5-15.5); WBC 6.3 k/uL (3.8-10.6)
[2020-03-09 08:55] LABS: Prothrombin Time 19.6 sec (9.0-12.0)
[2020-03-09] MEDS: SYMBICORT 160-4.5 MCG INHALER INHALATION SCH ×2 (09:06→19:57)
[2020-03-09 09:14] LABS: Albumin 3.3 g/dL (3.5-5.0); Calcium 8.8 mg/dL (8.4-10.2); Potassium 4.6 mmol/L (3.5-5.1); Total Bilirubin 0.7 mg/dL (0.2-1.3); Total Protein 5.8 g/dL (6.3-8.2)
--- NOTE | 2020-03-09 10:35 | P.PN ---
Subjective Progress Note Date: 03/09/20 Principal diagnosis: Post op TKA right knee This is a 69 year-old female post right total knee arthroplasty. This is post- op day 6. The patient was evaluated at the bedside today. The patient denies nausea, vomiting, abdominal pain and chest pain this morning. She is having some shortness of breath. She states her pain is controlled at this time. The patient has been up with physical therapy. She remains on 2 L of oxygen. Her pulse ox dropped to 86 this morning with ambulation. Her blood pressures have improved. BUN/creatinine are elevated. Objective - Vital Signs Vital signs: Vital Signs Temp 98.7 F 03/09/20 07:00 Pulse 68 03/09/20 07:00 Resp 18 03/09/20 07:00 BP 93/55 03/09/20 07:00 Pulse Ox 86 L 03/09/20 10:05 Intake & Output 03/08/20 03/09/20 03/09/20 18:59 06:59 18:59 Intake Total 200 Output Total 400 Balance -200 Intake: Oral 200 Output: Urine 400 Other: Voiding Method Bedside Commode Bedside Commode # Voids 1 1 # Bowel Movements 1 - Exam This is a pleasant 69-year-old female in no acute distress. She is alert and oriented at this time. Exam of the lower extremities reveals the dressing is clean, dry and intact. She has full foot and ankle motion without difficulty or pain. Neurovascular status to the lower extremity is intact. - Labs CBC & Chem 7: 03/09/20 08:19 03/09/20 08:19 Labs: Abnormal Lab Results - Last 24 Hours (Table) 03/08/20 03/08/20 03/08/20 Range/Units 11:11 11:11 11:11 RBC 3.19 L (3.80-5.40) m/uL Hgb 9.4 L (11.4-16.0) gm/dL Hct 29.2 L (34.0-46.0) % Lymphocytes # 0.9 L (1.0-4.8) k/uL PT 16.6 H (9.0-12.0) sec INR 1.7 H (<1.2) Sodium 135 L (137-145) mmol/L Chloride (98-107) mmol/L Carbon Dioxide 31 H (22-30) mmol/L BUN 44 H (7-17) mg/dL Creatinine 1.86 H (0.52-1.04) mg/dL Glucose (74-99) mg/dL POC Glucose (mg/dL) (75-99) mg/dL Total Protein 5.8 L (6.3-8.2) g/dL Albumin 3.3 L (3.5-5.0) g/dL 03/08/20 03/08/20 03/08/20 Range/Units 11:18 16:33 20:07 RBC (3.80-5.40) m/uL Hgb (11.4-16.0) gm/dL Hct (34.0-46.0) % Lymphocytes # (1.0-4.8) k/uL PT (9.0-12.0) sec INR (<1.2) Sodium (137-145) mmol/L Chloride (98-107) mmol/L Carbon Dioxide (22-30) mmol/L BUN (7-17) mg/dL Creatinine (0.52-1.04) mg/dL Glucose (74-99) mg/dL POC Glucose (mg/dL) 103 H 134 H 146 H (75-99) mg/dL Total Protein (6.3-8.2) g/dL Albumin (3.5-5.0) g/dL 03/09/20 03/09/20 03/09/20 Range/Units 07:19 08:19 08:19 RBC 3.15 L (3.80-5.40) m/uL Hgb 9.2 L (11.4-16.0) gm/dL Hct 29.3 L (34.0-46.0) % Lymphocytes # (1.0-4.8) k/uL PT 19.6 H (9.0-12.0) sec INR 2.0 H (<1.2) Sodium (137-145) mmol/L Chloride (98-107) mmol/L Carbon Dioxide (22-30) mmol/L BUN (7-17) mg/dL Creatinine (0.52-1.04) mg/dL Glucose (74-99) mg/dL POC Glucose (mg/dL) 134 H (75-99) mg/dL Total Protein (6.3-8.2) g/dL Albumin (3.5-5.0) g/dL 03/09/20 Range/Units 08:19 RBC (3.80-5.40) m/uL Hgb (11.4-16.0) gm/dL Hct (34.0-46.0) % Lymphocytes # (1.0-4.8) k/uL PT (9.0-12.0) sec INR (<1.2) Sodium 132 L (137-145) mmol/L Chloride 97 L (98-107) mmol/L Carbon Dioxide (22-30) mmol/L BUN 51 H (7-17) mg/dL Creatinine 2.26 H (0.52-1.04) mg/dL Glucose 174 H (74-99) mg/dL POC Glucose (mg/dL) (75-99) mg/dL Total Protein 5.8 L (6.3-8.2) g/dL Albumin 3.3 L (3.5-5.0) g/dL Assessment and Plan (1) Osteoarthritis of right knee Current Visit: Yes Status: Acute Code(s): M17.11 - UNILATERAL PRIMARY OSTEOARTHRITIS, RIGHT KNEE SNOMED Code(s): 505697730979480 (2) Status post total right knee replacement Current Visit: Yes Status: Acute Code(s): Z96.651 - PRESENCE OF RIGHT ARTIFICIAL KNEE JOINT SNOMED Code(s): 5949202189841 Plan: The clinical findings are discussed the patient. Continue current care. Recommended evaluation with pulmonology and nephrology if okay with Dr. Cook. She may be discharged when cleared medically.
[2020-03-09 11:18] LABS: Glucose,Whole Blood 88 mg/dL (75-99)
--- NOTE | 2020-03-09 11:33 | P.NPCON ---
History of Present Illness - Reason for Consult acute renal failure, chronic renal failure - History of Present Illness Reason for consultation: Acute kidney injury on chronic kidney disease History of present illness: Patient is a 69-year-old female seen in renal consultation for acute kidney injury on chronic kidney disease. Patient has history of chronic kidney disease stage III with baseline creatinine 1.2-1.4. It is up to 2.26 today. Patient has history of severe right knee osteoarthritis and underwent total knee arthroplasty on March 03. She is maintained on Lasix 40 mg orally twice daily. Oral intake is fair. No vomiting or diarrhea. She is also on Entresto. Blood pressure is in the systolic 90s. Denies chest pain or shortness of breath. Has a mild cough. No fever. She has been voiding denies any hematuria or dysuria. She does state that sometimes she has a hard time emptying her bladder. Chest x-ray from yesterday was not suggestive of fluid overload. She is not on any nonsteroidals. Hemoglobin stable. She has not required any blood transfusions. She does have history of diabetes mellitus. Patient states her brother is on hemodialysis. Vital signs are stable. General: The patient appeared well nourished and normally developed. HEENT: Head exam is unremarkable. Neck is without jugular venous distension. LUNGS: Lungs are clear to auscultation and percussion. Breath sounds decreased. HEART: Rate and Rhythm are regular. F ABDOMEN: Soft, nontender. EXTREMITITES: 1+ edema. Past Medical History Past Medical History: Heart Failure, COPD, CVA/TIA, Diabetes Mellitus, Deep Vein Thrombosis (DVT), Hypertension, Myocardial Infarction (ND), Musculoskeletal Disorder, Osteoarthritis (OA), Renal Disease Additional Past Medical History / Comment(s): mechanical valve, CVA 2014 - no residual weakness., states scar tissue in lungs,anemia., states taken off metformin-monitors her blood sugar,bleeding with stools-no longer any bleeding Last Myocardial Infarction Date:: 1994 History of Any Multi-Drug Resistant Organisms: None Reported Past Surgical History: Cholecystectomy, Coronary Bypass/CABG, Orthopedic Surgery Additional Past Surgical History / Comment(s): lung surgery, left knee arthroscopy, mechanical heart valve Past Anesthesia/Blood Transfusion Reactions: No Reported Reaction Additional Past Anesthesia/Blood Transfusion Reaction / Comment(s): no hx of known blood transfusion Date of Last Stent Placement:: 2004 Past Psychological History: Anxiety Additional Psychological History / Comment(s): . Smoking Status: Former smoker Past Alcohol Use History: None Reported Additional Past Alcohol Use History / Comment(s): STARTED SMOKING AT AGE 14 - QUIT 1995 SMOKED 1PPD, Past Drug Use History: None Reported - Past Family History Father History Unknown: Yes Mother Family Medical History: Cancer, Hypertension Additional Family Medical History / Comment(s): colon and liver cancer Sister(s) Family Medical History: Cancer Additional Family Medical History / Comment(s): lung cancer Brother(s) Family Medical History: COPD, Coronary Artery Disease (CAD), Diabetes Mellitus Additional Family Medical History / Comment(s): fem pop Medications and Allergies Home Medications Medication Instructions Recorded Confirmed Type Acetaminophen-Codeine 300-30mg 1 tab PO Q4H PRN 05/17/14 03/03/20 History [Tylenol w/codeine #3] Albuterol Inhaler (Mhu) [Ventolin 2 puff INHALATION RT-QID PRN 05/17/14 03/03/20 History Hfa Inhaler (Mhu)] Furosemide [Lasix] 40 mg PO DAILY 05/17/14 03/03/20 History Fluticasone Nasal [place] [Flonase 1 spray EA NOSTRIL RT-BID PRN 06/29/15 03/03/[address] [place]] Nitroglycerin Sl Tabs [Nitrostat] 0.4 mg SUBLINGUAL Q5M PRN 06/29/15 03/03/20 History Omeprazole [PriLOSEC] 20 mg PO QAM 06/29/15 03/03/20 History Clopidogrel [Plavix] 75 mg PO HS 01/06/17 03/03/20 History Budesonide-Formot 160-4.5 Mcg 2 puff INHALATION RT-BID 11/12/17 03/03/20 History [Symbicort 160-4.5 Mcg Inhaler] Ergocalciferol [Vitamin D2 50,000 unit PO MO 11/12/17 03/03/20 History (DRISDOL)] carvediloL [Coreg] 3.125 mg PO HS 11/12/17 03/03/20 History Warfarin [Coumadin] 2 mg PO DAILY 08/20/19 03/03/20 History Febuxostat [Uloric] 80 mg PO HS 09/16/19 03/03/20 History Pravastatin Sodium [Pravachol] 80 mg PO DAILY 09/16/19 03/03/20 History Allopurinol [Zyloprim] 300 mg PO DAILY 01/27/20 03/03/20 History Betamethasone Dipropionate 1 applic TOPICAL BID PRN 01/27/20 03/03/20 History [Diprolene 0.05% Ointment] Enoxaparin [Lovenox] 80 mg SQ DIRECTED 01/27/20 03/03/20 History Ipratropium-Albuterol Nebulize 3 ml INHALATION QID PRN 01/27/20 03/03/20 History [Duoneb 0.5 mg-3 mg/3 ml Soln] Pregabalin [Lyrica] 200 mg PO BID 01/27/20 03/03/20 History Sacubitril/Valsartan [Entresto 97 1 each PO BID 01/27/20 03/03/20 History mg-103 mg Tablet] HYDROcodone/APAP 10-325MG [[place] 1 tab PO Q4-6H PRN #40 tab 03/07/20 Rx 10-325] Sennosides-Docusate Sodium 2 tab PO DAILY #30 tablet 03/07/20 Rx [Senokot-S] Allergies Allergy/AdvReac Type Severity Reaction Status Date / Time aspirin Allergy Nausea & Verified 03/03/20 11:10 Vomiting surgical tape AdvReac blisters, Uncoded 03/03/20 11:10 red skin Physical Exam Vitals: Vital Signs Temp Pulse Pulse Pulse Resp BP BP 03/09/20 10:05 03/09/20 09:06 03/09/20 07:00 98.7 F 68 18 93/55 03/09/20 00:36 98.1 F 65 14 97/60 03/09/20 00:00 18 03/08/20 19:51 97.7 F 18 100/50 03/08/20 15:00 99.0 F 83 18 115/69 03/08/20 11:35 80 03/08/20 11:27 84 Pulse Ox 03/09/20 10:05 86 L 03/09/20 09:06 96 03/09/20 07:00 95 03/09/20 00:36 94 L 03/09/20 00:00 03/08/20 19:51 08/31/20 15:00 94 L 03/08/20 11:35 03/08/20 11:27 Intake and Output 03/08/20 03/09/20 03/09/20 22:59 06:59 14:59 Output Total 400 Balance -400 Output: Urine 400 Other: Voiding Method Bedside Commode Bedside Commode # Voids 1 1 Results - Lab Results Most recent lab results Calcium 8.8 mg/dL (8.4-10.2) 03/09/20 08:19 Magnesium 1.7 mg/dL (1.6-2.3) 03/07/20 17:25 03/09/20 08:19 03/09/20 08:19 Assessment and Plan Plan: Assessment: 1. Acute kidney injury mostly prerenal secondary to intravascular volume depletion from diuresis and hypotension. Also on Entresto. Creatinine 2.26 tod ay. Rule out urinary retention. 2. Chronic kidney disease stage III with baseline creatinine 1.2-1.4 secondary to nephrosclerosis. 3. Severe left knee osteoarthritis status post total knee arthroplasty on March 05. 4. Hyponatremia secondary to acute kidney injury. 5. Anemia of chronic kidney disease. Rule out iron deficiency. Plan: Hold Lasix and Entresto. Check iron studies. Check bladder scan to rule out urinary retention. Encouraged oral intake. Repeat electrolytes in the morning. Thank you for the consultation. I will continue to follow the patient with you during her hospital stay.
[2020-03-09] MEDS: SODIUM CHLORIDE 0.9% 1,000 ML IV SCH (12:16)
--- NOTE | 2020-03-09 12:27 | US ---
EXAMINATION TYPE: US venous doppler duplex LE DATE OF EXAM: 03/09/2020 12:14 PM COMPARISON: 2019 CLINICAL HISTORY: dvt. Bilateral leg pain and swelling, right knee replacement 1 week ago, patient on blood thinners SIDE PERFORMED: Bilateral TECHNIQUE: The lower extremity deep venous system is examined utilizing real time linear array sonog perez with graded compression, doppler sonography and color-flow sonography. VESSELS IMAGED: External Iliac Vein (EIV) Common Femoral Vein Deep Femoral Vein Greater Saphenous Vein * Femoral Vein Popliteal Vein Small Saphenous Vein * Proximal Calf Veins (* superficial vessels) Right Leg: Appears negative for DVT Left Leg: Appears negative for DVT Grayscale, color doppler, spectral doppler imaging performed of the deep veins of the bilateral lower extremities. There is normal flow, compressibility, vascular waveforms. IMPRESSION: No ultrasound evidence for acute DVT in either lower extremity.
--- NOTE | 2020-03-09 14:42 | P.CNPUL ---
History of Present Illness Consult date: 03/09/20 Requesting physician: Atnione Cook Reason for consult: dyspnea, hypoxemia Chief complaint: Acute hypoxic respiratory failure History of present illness: 69-year-old white female patient of Dr. Cook, who came in on overweight 22,020 for elective right knee replacement. Patient has a history of significant degenerative joint disease, and previous arthroscopic repair to her left knee, history of chronic congestive heart failure, rheumatic heart disease with previous history of mitral valve replacement with a mechanical valve on Coumadin, COPD, diabetes mellitus type 2, previous history of DVT, hypertension, IA. Patient had the right total knee arthroplasty on 03/03/[address] Hess, on her postoperative day 2 patient started experiencing shortness of breath with ambulation, and desaturating down to 80 after walking to the bathroom. Otherwise feeling well. Chest x-ray was obtained showing mild cardiomegaly with pulmonary venous congestion and Tonny B line's, suggesting fluid overload. Patient was given oral Lasix, she was started on Entresto, developed hypotension with systolic in the 70s, and subsequently Lasix was discontinued and patient was given some gentle IV hydration with 0.9 normal saline at a rate of 40 ML per hour. Yesterday's chest x-ray shows possible mild infiltrate within the lingula, and blunting of left costophrenic angle, cardiomegaly. Patient has been afebrile. She has had no leukocytosis, white blood cell count on today's labs is 6.3, hemoglobin is 9.2, INR is 2.0, d-dimer is mildly elevated at 1.04, patient is on Coumadin, and therapeutic doses of Lovenox for bridge in view of history of mechanical mitral valve replacement. S patrice sodium is 132, potassium is 4.6, chloride is 97, BUN is 51, creatinine is 2.26, and patient's renal profile has steadily increased since admission, he remains on 0.9 normal saline at a rate of 40 ML per hour for gentle IV hydration, she remains on supplemental oxygen, 2 L, with a pulse ox of 95-96%, room air pulse ox was 86%, patient is still experiencing exertional dyspnea, appears to be in no acute distress at rest, afebrile today, blood pressures 93/55, no altered mentation, no hemoptysis, no cough, lung sounds reveal scattered wheezes, patient is an ex-smoker, in remission for last 25 years, did smoke for 33 years prior to that. Incentive spirometry effort is only 750 on today's exam. Lower extremity Dopplers were negative for DVT. Review of Systems All systems: negative Constitutional: Denies chills, Denies fever Eyes: denies blurred vision, denies pain Ears, nose, mouth and throat: Denies headache, Denies sore throat Cardiovascular: Denies chest pain, Denies shortness of breath Respiratory: Reports dyspnea, Reports wheezing, Denies cough Gastrointestinal: Denies abdominal pain, Denies diarrhea, Denies nausea, Denies vomiting Genitourinary: Denies dysuria, Denies hematuria Musculoskeletal: Denies myalgias Integumentary: Denies pruritus, Denies rash Neurological: Denies numbness, Denies weakness Psychiatric: Denies anxiety, Denies depression Endocrine: Denies fatigue, Denies weight change Past Medical History Past Medical History: Heart Failure, COPD, CVA/TIA, Diabetes Mellitus, Deep Vein Thrombosis (DVT), Hypertension, Myocardial Infarction (IA), Musculoskeletal Disorder, Osteoarthritis (OA), Renal Disease Additional Past Medical History / Comment(s): mechanical valve, CVA 2014 - no residual weakness., states scar tissue in lungs,anemia., states taken off metformin-monitors her blood sugar,bleeding with stools-no longer any bleeding Last Myocardial Infarction Date:: 1994 History of Any Multi-Drug Resistant Organisms: None Reported Past Surgical History: Cholecystectomy, Coronary Bypass/CABG, Orthopedic Surgery Additional Past Surgical History / Comment(s): lung surgery, left knee arthroscopy, mechanical heart valve Past Anesthesia/Blood Transfusion Reactions: No Reported Reaction Additional Past Anesthesia/Blood Transfusion Reaction / Comment(s): no hx of known blood transfusion Date of Last Stent Placement:: 2004 Past Psychological History: Anxiety Additional Psychological History / Comment(s): . Smoking Status: Former smoker Past Alcohol Use History: None Reported Additional Past Alcohol Use History / Comment(s): STARTED SMOKING AT AGE 14 - QUIT 1994 SMOKED 1PPD, Past Drug Use History: None Reported - Past Family History Father History Unknown: Yes Mother Family Medical History: Cancer, Hypertension Additional Family Medical History / Comment(s): colon and liver cancer Sister(s) Family Medical History: Cancer Additional Family Medical History / Comment(s): lung cancer Brother(s) Family Medical History: COPD, Coronary Artery Disease (CAD), Diabetes Mellitus Additional Family Medical History / Comment(s): fem pop Medications and Allergies Home Medications Medication Instructions Recorded Confirmed Type Acetaminophen-Codeine 300-30mg 1 tab PO Q4H PRN 05/17/14 03/03/20 History [Tylenol w/codeine #3] Albuterol Inhaler (Mhu) [Ventolin 2 puff INHALATION RT-QID PRN 05/17/14 03/03/20 History Hfa Inhaler (Mhu)] Furosemide [Lasix] 40 mg PO DAILY 05/17/14 03/03/20 History Fluticasone Nasal [place] [Flonase 1 spray EA NOSTRIL RT-BID PRN 06/29/15 03/03/20 History Nasal [place]] Nitroglycerin Sl Tabs [Nitrostat] 0.4 mg SUBLINGUAL Q5M PRN 06/29/15 03/03/20 History Omeprazole [PriLOSEC] 20 mg PO QAM 06/29/15 03/03/20 History Clopidogrel [Plavix] 75 mg PO HS 01/06/17 03/03/20 History Budesonide-Formot 160-4.5 Mcg 2 puff INHALATION RT-BID 11/12/17 03/03/20 History [Symbicort 160-4.5 Mcg Inhaler] Ergocalciferol [Vitamin D2 50,000 unit PO MO 11/12/17 03/03/20 History (DRISDOL)] carvediloL [Coreg] 3.125 mg PO HS 11/12/17 03/03/20 History Warfarin [Coumadin] 2 mg PO DAILY 08/20/19 03/03/20 History Febuxostat [Uloric] 80 mg PO HS 09/16/19 03/03/20 History Pravastatin Sodium [Pravachol] 80 mg PO DAILY 09/16/19 03/03/20 History Allopurinol [Zyloprim] 300 mg PO DAILY 01/27/20 03/03/20 History Betamethasone Dipropionate 1 applic TOPICAL BID PRN 01/27/20 03/03/20 History [Diprolene 0.05% Ointment] Enoxaparin [Lovenox] 80 mg SQ DIRECTED 01/27/20 03/03/20 History Ipratropium-Albuterol Nebulize 3 ml INHALATION QID PRN 01/27/20 03/03/20 History [Duoneb 0.5 mg-3 mg/3 ml Soln] Pregabalin [Lyrica] 200 mg PO BID 01/27/20 03/03/20 History Sacubitril/Valsartan [Entresto 97 1 each PO BID 01/27/20 03/03/20 History mg-103 mg Tablet] HYDROcodone/APAP 10-325MG [[place] 1 tab PO Q4-6H PRN #40 tab 03/07/20 Rx 10-325] Sennosides-Docusate Sodium 2 tab PO DAILY #30 tablet 03/07/20 Rx [Senokot-S] Allergies Allergy/AdvReac Type Severity Reaction Status Date / Time aspirin Allergy Nausea & Verified 03/03/20 11:10 Vomiting surgical tape AdvReac blisters, Uncoded 03/03/20 11:10 red skin Physical Exam Vitals: Vital Signs Temp Pulse Pulse Resp BP BP Pulse Ox 03/09/20 10:05 86 L 03/09/20 09:06 96 03/09/20 07:00 98.7 F 68 18 93/55 95 03/09/20 00:36 98.1 F 65 14 97/60 94 L 03/09/20 00:00 18 03/08/20 19:51 97.7 F 18 100/50 03/08/20 15:00 99.0 F 83 18 115/69 94 L Intake and Output 03/08/20 03/09/20 03/09/20 22:59 06:59 14:59 Intake Total 320 Output Total 400 Balance -400 320 Intake: IV 320 Sodium Chloride 0.9% 1, 320 000 ml @ 40 mls/hr IV . Q24H [facility] Rx#:[id number] Output: Urine 400 Other: Voiding Method Bedside Commode Bedside Commode # Voids 1 1 GENERAL EXAM: Alert, very pleasant, 69-year-old female, on 2 L of oxygen and the pulse ox of 96% comfortable in no apparent distress. HEAD: Normocephalic/atraumatic. EYES: Normal reaction of pupils, equal size. Conjunctiva pink, sclera white. NOSE: Clear with pink turbinates. THROAT: No erythema or exudates. NECK: No masses, no JVD, no thyroid enlargement, no adenopathy. CHEST: No chest wall deformity. Symmetrical expansion. LUNGS: Equal air entry with no crackles, wheeze, rhonchi or dullness. CVS: Regular rate and rhythm, normal S1 and S2, no gallops, no murmurs, no rubs. Characteristic click of mechanical mitral valve auscultated ABDOMEN: Soft, nontender. No hepatosplenomegaly, normal bowel sounds, no guarding or rigidity. EXTREMITIES: No clubbing, no edema, no cyanosis, 2+ pulses and upper and lower extremities. Right knee incision is clean dry and intact, covered with a surgical dressing MUSCULOSKELETAL: Muscle strength and tone normal. SPINE: No scoliosis or deformity SKIN: No rashes CENTRAL NERVOUS SYSTEM: Alert and oriented -3. No focal deficits, tone is normal in all 4 extremities. PSYCHIATRIC: Alert and oriented -3. Appropriate affect. Intact judgment and insight. Results - Laboratory Findings CBC and BMP: 03/09/20 08:19 03/09/20 08:19 PT/INR, D-dimer PT 19.6 sec (9.0-12.0) H 03/09/20 08:19 INR 2.0 (<1.2) H 03/09/20 08:19 D-Dimer 1.04 mg/L FEU (<0.60) H 03/09/20 08:19 Abnormal lab findings: Abnormal Labs 03/03/20 03/03/20 03/03/20 11:22 11:25 11:25 RBC Hgb Hct Plt Count Neutrophils # Lymphocytes # PT 15.9 H INR 1.6 H D-Dimer Sodium Chloride Carbon Dioxide BUN 26 H Creatinine 1.22 H Glucose 131 H POC Glucose (mg/dL) 130 H Calcium Total Protein Albumin 03/03/20 03/03/20 03/04/20 15:41 20:05 06:51 RBC Hgb Hct Plt Count Neutrophils # Lymphocytes # PT INR D-Dimer Sodium Chloride Carbon Dioxide BUN Creatinine Glucose POC Glucose (mg/dL) 166 H 156 H 123 H Calcium Total Protein Albumin 03/04/20 03/04/20 03/04/20 07:41 10:53 11:45 RBC 3.08 L Hgb 9.3 L D Hct 27.8 L Plt Count 117 L Neutrophils # 7.9 H Lymphocytes # 0.7 L PT 15.7 H INR 1.6 H D-Dimer Sodium Chloride Carbon Dioxide BUN Creatinine Glucose POC Glucose (mg/dL) 110 H Calcium Total Protein Albumin 03/04/20 03/04/20 03/05/20 16:57 20:11 07:26 RBC Hgb Hct Plt Count Neutrophils # Lymphocytes # PT INR D-Dimer Sodium Chloride Carbon Dioxide BUN Creatinine Glucose POC Glucose (mg/dL) 101 H 114 H 119 H Calcium Total Protein Albumin 03/05/20 03/05/20 03/05/20 08:19 08:19 08:19 RBC 3.12 L Hgb 9.6 L Hct 28.4 L Plt Count 105 L Neutrophils # Lymphocytes # 0.7 L PT 15.5 H INR 1.6 H D-Dimer Sodium 133 L Chloride Carbon Dioxide BUN 40 H Creatinine 1.59 H Glucose 133 H POC Glucose (mg/dL) Calcium Total Protein Albumin 03/05/20 03/05/20 03/05/20 12:21 17:08 20:20 RBC Hgb Hct Plt Count Neutrophils # Lymphocytes # PT INR D-Dimer Sodium Chloride Carbon Dioxide BUN Creatinine Glucose POC Glucose (mg/dL) 101 H 131 H 129 H Calcium Total Protein Albumin 03/06/20 03/06/20 03/06/20 06:44 06:44 06:44 RBC 3.23 L Hgb 9.7 L Hct 29.4 L Plt Count 122 L Neutrophils # Lymphocytes # 0.8 L PT 12.9 H INR 1.3 H D-Dimer Sodium 134 L Chloride Carbon Dioxide BUN 44 H Creatinine 1.59 H Glucose 107 H POC Glucose (mg/dL) Calcium Total Protein 5.4 L Albumin 3.0 L 03/06/20 03/06/20 03/06/20 07:31 17:08 20:29 RBC Hgb Hct Plt Count Neutrophils # Lymphocytes # PT INR D-Dimer Sodium Chloride Carbon Dioxide BUN Creatinine Glucose POC Glucose (mg/dL) 126 H 122 H 145 H Calcium Total Protein Albumin 03/07/20 03/07/20 03/07/20 07:10 08:23 08:23 RBC 3.03 L Hgb 9.2 L Hct 28.1 L Plt Count 120 L Neutrophils # Lymphocytes # 0.8 L PT 12.6 H INR 1.3 H D-Dimer Sodium Chloride Carbon Dioxide BUN Creatinine Glucose POC Glucose (mg/dL) 121 H Calcium Total Protein Albumin 03/07/20 03/07/20 03/07/20 08:23 11:37 16:49 RBC Hgb Hct Plt Count Neutrophils # Lymphocytes # PT INR D-Dimer Sodium 132 L Chloride Carbon Dioxide BUN 41 H Creatinine 1.42 H Glucose 169 H POC Glucose (mg/dL) 114 H 113 H Calcium 8.1 L Total Protein 5.2 L Albumin 2.9 L 03/07/20 03/08/20 03/08/20 20:58 07:10 11:11 RBC Hgb Hct Plt Count Neutrophils # Lymphocytes # PT 16.6 H INR 1.7 H D-Dimer Sodium Chloride Carbon Dioxide BUN Creatinine Glucose POC Glucose (mg/dL) 138 H 124 H Calcium Total Protein Albumin 03/08/20 03/08/20 03/08/20 11:11 11:11 11:18 RBC 3.19 L Hgb 9.4 L Hct 29.2 L Plt Count Neutrophils # Lymphocytes # 0.9 L PT INR D-Dimer Sodium 135 L Chloride Carbon Dioxide 31 H BUN 44 H Creatinine 1.86 H Glucose POC Glucose (mg/dL) 103 H Calcium Total Protein 5.8 L Albumin 3.3 L 03/08/20 03/08/20 03/09/20 16:33 20:07 07:19 RBC Hgb Hct Plt Count Neutrophils # Lymphocytes # PT INR D-Dimer Sodium Chloride Carbon Dioxide BUN Creatinine Glucose POC Glucose (mg/dL) 134 H 146 H 134 H Calcium Total Protein Albumin 03/09/20 03/09/20 03/09/20 08:19 08:19 08:19 RBC 3.15 L Hgb 9.2 L Hct 29.3 L Plt Count Neutrophils # Lymphocytes # PT 19.6 H INR 2.0 H D-Dimer Sodium 132 L Chloride 97 L Carbon Dioxide BUN 51 H Creatinine 2.26 H Glucose 174 H POC Glucose (mg/dL) Calcium Total Protein 5.8 L Albumin 3.3 L 03/09/20 08:19 RBC Hgb Hct Plt Count Neutrophils # Lymphocytes # PT INR D-Dimer 1.04 H Sodium Chloride Carbon Dioxide BUN Creatinine Glucose POC Glucose (mg/dL) Calcium Total Protein Albumin - Diagnostic Findings Chest x-ray: report reviewed, image reviewed Assessment and Plan Plan: Assessment: #1. Acute hypoxic respiratory failure secondary to fluid overload, atelectasis, doubt possibility of pneumonia. #2. History of degenerative joint disease in right knee, that is post right knee total arthroplasty on 03/05/2020 #3. Suspect a component of COPD in a former smoker #4. Acute kidney injury on top of chronic kidney disease stage III at baseline #5. Chronic congestive heart failure #6. Diabetes type II #7. Rheumatic heart disease, valvular heart disease, status post mitral valve replacement with a mechanical mitral valve, maintained on Coumadin for chronic anticoagulation #8. Previous history of DVT #9. Hypertension #10. Previous history of myocardial infarction #11. History of degenerative joint disease, with previous history of left knee replacement #12. Mildly elevated d-dimer, lower extremity Dopplers are negative for DVT, patient is already covered with chronic anticoagulation, currently on Coumadin and therapeutic doses of Lovenox for a bridge, VQ scan showed low probability for pulmonary embolism #13. Chronic anemia #14. Former smoker, currently in remission for last 25 years, did smoke a pack a day for 33 years Plan: Chest x-rays have been reviewed, doubt possibility of pneumonia, patient has had no fever or chills, no cough, no leukocytosis. She has been diuresed for initial findings consistent with fluid volume overload, Lasix is currently on hold for worsening renal function. VQ scan has been negative, lower external Dopplers were negative, patient is on Coumadin and therapeutic doses of Lovenox for mechanical mitral valve. Doubt possibility of pulmonary embolism. Continue encouraging incentive spirometry, patient's hypoxemia is also due to atelectasis. Encourage ambulation. Continue nebulized bronchodilators. Francis flores is still requiring supplemental oxygen, at 2 L, there is a possibility she may need to go home on home oxygen until she fully recovers, and this may take up to several weeks, and this was explained to the patient. She will need outpatient follow-up in the office. She could be considered for discharge home if cleared by the primary care service, home oxygen, bronchodilators. I performed a history & physical examination of the patient and discussed their management with my nurse practitioner, Kell Moraes. I reviewed the nurse practitioner's note and agree with the documented findings and plan of care. Lung sounds are positive for mild expiratory wheezes. The findings and the impression was discussed with the patient. I attest to the documentation by the nurse practitioner. Time with Patient: Greater than 30
[2020-03-09 16:53] LABS: Glucose,Whole Blood 117 mg/dL (75-99)
[2020-03-09] MEDS ORDERED: WARFARIN 2 MG TAB PO ONE (18:00)
[2020-03-09 18:14] LABS: % Iron Saturation 11.74 (12.00-45.00)
[2020-03-09 18:22] LABS: Ferritin 124.1 ng/mL (10.0-291.0)
[2020-03-09] MEDS: SENNOSIDES-DOCUSATE SODIUM 1 EACH TAB PO SCH (20:39)
[2020-03-09] MEDS: carvediloL 3.125 MG TAB PO SCH (20:39)
[2020-03-09] MEDS: CLOPIDOGREL 75 MG TAB PO SCH (20:40)
[2020-03-09 21:43] LABS: Glucose,Whole Blood 115 mg/dL (75-99)
[2020-03-10] MEDS: HYDROcodone/APAP 10-325MG 1 EACH TAB PO PRN ×4 (05:09→22:27)
[2020-03-10] MEDS: hydrOXYzine pamoate 25 MG CAP PO PRN ×3 (05:11→22:26)
[2020-03-10 06:48] LABS: Glucose,Whole Blood 117 mg/dL (75-99)
[2020-03-10] MEDS: SYMBICORT 160-4.5 MCG INHALER INHALATION SCH ×2 (08:03→20:11)
[2020-03-10] MEDS: PANTOPRAZOLE 40 MG TABLET PO SCH (08:40)
[2020-03-10] MEDS: PREGABALIN 100 MG CAP PO SCH ×2 (08:40→22:27)
[2020-03-10] MEDS: SACUBITRIL/VALSARTAN 97 MG-103 MG TABLET PO SCH ×2 (08:40→22:28)
[2020-03-10] MEDS: allopurinoL 300 MG TAB PO SCH (08:40)
--- NOTE | 2020-03-10 09:34 | P.PN ---
Subjective Progress Note Date: 03/10/20 Principal diagnosis: Post op TKA right knee. Acute on chronic renal disease. Acute hypoxia. This is a 69 year-old female post right total knee arthroplasty. This is post- op day 7. The patient was evaluated at the bedside today. The patient denies nausea, vomiting, abdominal pain and chest pain this morning. She is having some shortness of breath. She states her pain is controlled at this time. The patient has been up with physical therapy. She remains on 2 L of oxygen. Her pulse ox is a 96 this morning. she was evaluated by pulmonology and nephrology yesterday. Her Lasix was discontinued. Objective - Vital Signs Vital signs: Vital Signs Temp 97.8 F 03/10/20 06:48 Pulse 74 03/10/20 06:48 Resp 16 03/10/20 06:48 BP 102/55 03/10/20 06:48 Pulse Ox 96 03/10/20 06:48 Intake & Output 03/09/20 03/10/20 03/10/20 18:59 06:59 18:59 Intake Total 1500 Output Total 1300 Balance 1500 -1300 Intake: IV 320 Sodium Chloride 0.9% 1, 320 000 ml @ 40 mls/hr IV . Q24H [facility] Rx#:[id number] Oral 1180 Output: Urine 1300 Other: Voiding Method Bedside Commode # Voids 1 # Bowel Movements 1 - Exam This is a pleasant 69-year-old female in no acute distress. She is alert and oriented at this time. Exam of the lower extremities reveals the dressing is clean, dry and intact. there is [id number] swelling to the right lower extremity. Mild ecchymosis. She has full foot and ankle motion without difficulty or pain. She is able to lift the leg off the chair with without difficulty. Neurovascular status to the lower extremity is intact. - Labs CBC & Chem 7: 03/09/20 08:19 03/09/20 08:19 Labs: Abnormal Lab Results - Last 24 Hours (Table) 03/09/20 03/09/20 03/09/20 Range/Units 08:19 08:19 16:48 D-Dimer 1.04 H (<0.60) mg/L FEU POC Glucose (mg/dL) 117 H (75-99) mg/dL Iron 33 L (50-170) ug/dL % Saturation 11.74 L (12.00-45.00) 03/09/20 03/10/20 Range/Units 21:42 06:44 D-Dimer (<0.60) mg/L FEU POC Glucose (mg/dL) 115 H 117 H (75-99) mg/dL Iron (50-170) ug/dL % Saturation (12.00-45.00) Assessment and Plan (1) Osteoarthritis of right knee Current Visit: Yes Status: Acute Code(s): M17.11 - UNILATERAL PRIMARY OSTEOARTHRITIS, RIGHT KNEE SNOMED Code(s): 907925573254812 (2) Status post total right knee replacement Current Visit: Yes Status: Acute Code(s): Z96.651 - PRESENCE OF RIGHT ARTIFICIAL KNEE JOINT SNOMED Code(s): 0636743451610 Plan: The clinical findings are discussed the patient. Continue current care. She may be discharged to home when cleared medically.
[2020-03-10 11:13] LABS: Magnesium 1.9 mg/dL (1.6-2.3); Potassium 4.6 mmol/L (3.5-5.1)
[2020-03-10] MEDS: IPRATROPIUM-ALBUTEROL 3 ML NEB INHALATION PRN ×3 (11:21→20:11)
[2020-03-10 11:40] LABS: INR 2.6 (<1.2); Prothrombin Time 25.7 sec (9.0-12.0)
[2020-03-10 11:51] LABS: Glucose,Whole Blood 85 mg/dL (75-99)
--- NOTE | 2020-03-10 11:59 | P.PN ---
Subjective Progress Note Date: 03/10/20 Principal diagnosis: Acute hypoxic respiratory failure 69-year-old white female patient of Dr. Cook, who came in on overweight 22,020 for elective right knee replacement. Patient has a history of significant degenerative joint disease, and previous arthroscopic repair to her left knee, history of chronic congestive heart failure, rheumatic heart disease with previous history of mitral valve replacement with a mechanical valve on Coumadin, COPD, diabetes mellitus type 2, previous history of DVT, hypertension, VT. Patient had the right total knee arthroplasty on 03/03/[address] Hess, on her postoperative day 2 patient started experiencing shortness of breath with ambulation, and desaturating down to 80 after walking to the bathroom. Otherwise feeling well. Chest x-ray was obtained showing mild cardiomegaly with pulmonary venous congestion and Tonny B line's, suggesting fluid overload. Patient was given oral Lasix, she was started on Entresto, developed hypotension with systolic in the 70s, and subsequently Lasix was discontinued and patient was given some gentle IV hydration with 0.9 normal saline at a rate of 40 ML per hour. Yesterday's chest x-ray shows possible mild infiltrate within the lingula, and blunting of left costophrenic angle, car diomegaly. Patient has been afebrile. She has had no leukocytosis, white blood cell count on today's labs is 6.3, hemoglobin is 9.2, INR is 2.0, d-dimer is mildly elevated at 1.04, patient is on Coumadin, and therapeutic doses of Lovenox for bridge in view of history of mechanical mitral valve replacement. Serum sodium is 132, potassium is 4.6, chloride is 97, BUN is 51, creatinine is 2.26, and patient's renal profile has steadily increased since admission, he remains on 0.9 normal saline at a rate of 40 ML per hour for gentle IV hydration, she remains on supplemental oxygen, 2 L, with a pulse ox of 95-96%, room air pulse ox was 86%, patient is still experiencing exertional dyspnea, appears to be in no acute distress at rest, afebrile today, blood pressures 93/55, no altered mentation, no hemoptysis, no cough, lung sounds reveal scattered wheezes, patient is an ex-smoker, in remission for last 25 years, did smoke for 33 years prior to that. Incentive spirometry effort is only 750 on today's exam. Lower extremity Dopplers were negative for DVT. The patient is seen today 03/10/2020 in follow-up on the regular medical floor. She is currently sitting up in a chair at the bedside. Awake and alert in no acute distress. She denies any worsening shortness of breath, cough or con gestion. Currently maintaining O2 saturations in the mid 90s on 2 L/m per nasal cannula. INR 2.6. Sodium 134. Potassium 4.6. Creatinine 1.47. She remains on DuoNeb inhalations, Symbicort. Objective - Vital Signs Vital signs: Vital Signs Temp 97.8 F 03/10/20 06:48 Pulse 73 03/10/20 11:33 Resp 16 03/10/20 06:48 BP 102/55 03/10/20 06:48 Pulse Ox 84 L 03/10/20 09:10 Intake & Output 03/09/20 03/10/20 03/10/20 18:59 06:59 18:59 Intake Total 1500 320 Output Total 1300 133 Balance 1500 -1300 187 Intake: IV 320 320 Sodium Chloride 0.9% 1, 320 320 000 ml @ 40 mls/hr IV . Q24H DANIEL Rx#:[id number] Oral 1180 Output: Urine 1300 Post Void Residual 133 Other: Voiding Method Bedside Commode # Voids 1 # Bowel Movements 1 - Exam GENERAL EXAM: Alert, very pleasant, 69-year-old female patient, on 2 L of oxygen and the pulse ox of 96% comfortable in no apparent distress. HEAD: Normocephalic/atraumatic. EYES: Normal reaction of pupils, equal size. Conjunctiva pink, sclera white. NOSE: Clear with pink turbinates. THROAT: No erythema or exudates. NECK: No masses, no JVD, no thyroid enlargement, no adenopathy. CHEST: No chest wall deformity. Symmetrical expansion. LUNGS: Equal air entry with no crackles, wheeze, rhonchi or dullness. CVS: Regular rate and rhythm, normal S1 and S2, no gallops, no murmurs, no rubs. Characteristic click of mechanical mitral valve auscultated ABDOMEN: Soft, nontender. No hepatosplenomegaly, normal bowel sounds, no guarding or rigidity. EXTREMITIES: No clubbing, no edema, no cyanosis, 2+ pulses and upper and lower extremities. Right knee incision is clean dry and intact, covered with a surgical dressing MUSCULOSKELETAL: Muscle strength and tone normal. SPINE: No scoliosis or deformity SKIN: No rashes CENTRAL NERVOUS SYSTEM: No focal deficits, tone is normal in all 4 extremities. PSYCHIATRIC: Alert and oriented -3. Appropriate affect. Intact judgment and insight. - Labs CBC & Chem 7: 03/09/20 08:19 03/10/20 10:43 Labs: Abnormal Lab Results - Last 24 Hours (Table) 03/09/20 03/09/20 03/09/20 Range/Units 08:19 08:19 16:48 PT (9.0-12.0) sec INR (<1.2) D-Dimer 1.04 H (<0.60) mg/L FEU Sodium (137-145) mmol/L BUN (7-17) mg/dL Creatinine (0.52-1.04) mg/dL POC Glucose (mg/dL) 117 H (75-99) mg/dL Iron 33 L (50-170) ug/dL % Saturation 11.74 L (12.00-45.00) 03/09/20 03/10/20 03/10/20 Range/Units 21:42 06:44 10:43 PT 25.7 H (9.0-12.0) sec INR 2.6 H (<1.2) D-Dimer (<0.60) mg/L FEU Sodium (137-145) mmol/L BUN (7-17) mg/dL Creatinine (0.52-1.04) mg/dL POC Glucose (mg/dL) 115 H 117 H (75-99) mg/dL Iron (50-170) ug/dL % Saturation (12.00-45.00) 03/10/20 Range/Units 10:43 PT (9.0-12.0) sec INR (<1.2) D-Dimer (<0.60) mg/L FEU Sodium 134 L (137-145) mmol/L BUN 46 H (7-17) mg/dL Creatinine 1.47 H (0.52-1.04) mg/dL POC Glucose (mg/dL) (75-99) mg/dL Iron (50-170) ug/dL % Saturation (12.00-45.00) Assessment and Plan Assessment: #1. Acute hypoxic respiratory failure secondary to fluid overload, atelectasis, doubt possibility of pneumonia. #2. History of degenerative joint disease in right knee, that is post right knee total arthroplasty on 03/05/2020 #3. Suspect a component of COPD in a former smoker #4. Acute kidney injury on top of chronic kidney disease stage III at baseline #5. Chronic congestive heart failure #6. Diabetes type II #7. Rheumatic heart disease, valvular heart disease, status post mitral valve replacement with a mechanical mitral valve, maintained on Coumadin for chronic a nticoagulation #8. Previous history of DVT #9. Hypertension #10. Previous history of myocardial infarction #11. History of degenerative joint disease, with previous history of left knee replacement #12. Mildly elevated d-dimer, lower extremity Dopplers are negative for DVT, patient is already covered with chronic anticoagulation, currently on Coumadin and therapeutic doses of Lovenox for a bridge, VQ scan showed low probability for pulmonary embolism #13. Chronic anemia #14. 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 Chavarria Still requiring 2 L nasal cannula to maintain O2 saturation in the 90s Continue DuoNeb's on Symbicort Encouraged increased use the incentive spirometer Will probably need home oxygen until fully recovered INR 2.6 Repeat chest x-ray in a.m. We'll continue to follow I, the cosigning physician, performed a history & physical examination of the patient. Lungs sounds are clear. Maintaining good O2 saturations in the 90s on 2 L/m per nasal cannula. I discussed the assessment and plan of care with my nurse practitioner, Diana Hitchcock. I attest to the above note as dictated by her.
[2020-03-10] MEDS: SODIUM CHLORIDE 0.9% 1,000 ML IV SCH (12:00)
--- NOTE | 2020-03-10 14:03 | P.CRDCN ---
History of Present Illness History of present illness: HISTORY OF PRESENTING ILLNESS This is a pleasant 69-year-old female past medical history significant for valvular heart disease status post mechanical [place] mitral valve replace ment, CVA, hypertension, diabetes mellitus, COPD, former nicotine dependence, chronic kidney disease and chronic diastolic heart failure. She follows in the office with Dr. Samaniego. We have been asked to see in consultation for rheumatic heart disease. She came to the hospital for an elective repair of her right knee with Dr. Narvaez. She saw Dr. Samaniego prior to surgery in the office and lovenx bridging was recommended. She was a moderate risk for surgery. The patient states she had surgery without difficulty or incident on 03/03 however on POD#2 she had an acute onset of shortness of breath. Venous Doppler and VQ scans were unremarkable for thrombosis. She was given IV Lasix and her symptoms have greatly improved. She states she has been up and ambulating today through the katz with physical therapy and back and forth to the bathroom without dyspnea. She denies symptoms of chest pain, dizziness or palpitations. She continues to use oxygen via the nasal cannula with episodes of hypoxia noted. On exam clinically she is euvolemic. She was bridged with lovenox for her valve prior to surgery and thereafter. DIAGNOSTICS EKG reveals sinus mechanism with mild ST abnormalities noted in the anterior leads. Chest xray chest xray initially on the day of surgery showed federica B lines and pulmonary congestion. Repeat chest xray has shown improvement. Laboratory reviewed, creatinine on admission and preoperatively was 1.43 and did peak in this admission at 2.26 yesterday with a repeat today of 1.47, INR today is 2.6, sodium 134, potassium 4.6 and magnesium 1.9, WBC 6.3, hemoglobin 9.2, troponin negative 3 and NTproBNP on March 08 was 1120.. Current cardiac medications include Entresto 97/103 mg twice a day, Coumadin 2 mg daily, coreg 3.125 mg at bedtime, pravastatin 80 mg daily, Lasix 40 mg daily and Plavix 75 mg at bedtime.. REVIEW OF SYSTEMS At the time of my exam: CONSTITUTIONAL: Denies fever or chills. CARDIOVASCULAR: Denies chest pain, shortness of breath, orthopnea, PND or palpitations. RESPIRATORY: Denies cough. GASTROINTESTINAL: Denies abdominal pain, diarrhea, constipation, nausea or vomiting. MUSCULOSKELETAL: Denies myalgias. NEUROLOGIC: Denies numbness, tingling or weakness. ENDOCRINE: Denies fatigue, weight change, polydipsia or polyurina. GENITOURINARY: Denies burning, hematuria or urgency with micturation. HEMATOLOGIC: Denies history of anemia or bleeding. PHYSICAL EXAMINATION Blood pressure 102/55 heart rate 73 afebrile and maintaining oxygen saturation on a nasal cannula. CONSTITUTIONAL: No apparent distress. HEENT: Head is normocephalic. Pupils are equal, round. Sclerae anicteric. Mucous membranes of the mouth are moist. No JVD. No carotid bruit. CHEST EXAMINATION: Lungs are clear to auscultation. No chest wall tenderness is noted on palpation or with deep breathing. Diminished bilaterally. HEART EXAMINATION: Regular rate and rhythm. S1, S2 heard. Mechanical click at the apex, no murmurs, gallops or rub. ABDOMEN: Soft, nontender. Positive bowel sounds. EXTREMITIES: 2+ peripheral pulses, 1+ pitting edema on the right lower extre mity, trace non-pitting edema on the left and no calf tenderness. NEUROLOGIC EXAMINATION: Patient is awake, alert and oriented x3. ASSESSMENT Acute fluid overload secondary to acute on chronic diastolic heart failure, improved s/p right knee total replacement Hypoxia Acute kidney injury with history of chronic renal failure Valvular heart disease s/p mechanical mitral valve repair maintained on coumadin Hypertension Diabetes mellitus COPD History of CVA maintained on plavix Dyslipidemia PLAN Clinically her breathing has improved. Her kidneys as well hare improving. INR is therapeutic, lovenox can be discontinued. Repeat chest x-ray already ordered for the morning. Follow renal function. Nephrology following. Thank you kindly for this consultation. Nurse Practitioner note has been reviewed, I agree with a documented findings and plan of care. Patient was seen and examined. Past Medical History Past Medical History: Heart Failure, COPD, CVA/TIA, Diabetes Mellitus, Deep Vein Thrombosis (DVT), Hypertension, Myocardial Infarction (RI), Musculoskeletal Disorder, Osteoarthritis (OA), Renal Disease Additional Past Medical History / Comment(s): mechanical valve, CVA 2014 - no residual weakness., states scar tissue in lungs,anemia., states taken off metformin-monitors her blood sugar,bleeding with stools-no longer any bleeding Last Myocardial Infarction Date:: 1994 History of Any Multi-Drug Resistant Organisms: None Reported Past Surgical History: Cholecystectomy, Coronary Bypass/CABG, Orthopedic Surgery Additional Past Surgical History / Comment(s): lung surgery, left knee arthroscopy, mechanical heart valve Past Anesthesia/Blood Transfusion Reactions: No Reported Reaction Additional Past Anesthesia/Blood Transfusion Reaction / Comment(s): no hx of known blood transfusion Date of Last Stent Placement:: 2004 Past Psychological History: Anxiety Additional Psychological History / Comment(s): . Smoking Status: Former smoker Past Alcohol Use History: None Reported Additional Past Alcohol Use History / Comment(s): STARTED SMOKING AT AGE 14 - QUIT 1994 SMOKED 1PPD, Past Drug Use History: None Reported - Past Family History Father History Unknown: Yes Mother Family Medical History: Cancer, Hypertension Additional Family Medical History / Comment(s): colon and liver cancer Sister(s) Family Medical History: Cancer Additional Family Medical History / Comment(s): lung cancer Brother(s) Family Medical History: COPD, Coronary Artery Disease (CAD), Diabetes Mellitus Additional Family Medical History / Comment(s): fem pop Medications and Allergies Home Medications Medication Instructions Recorded Confirmed Type Acetaminophen-Codeine 300-30mg 1 tab PO Q4H PRN 05/17/14 03/03/20 History [Tylenol w/codeine #3] Albuterol Inhaler (Mhu) [Ventolin 2 puff INHALATION RT-QID PRN 05/17/14 03/03/20 History Hfa Inhaler (Mhu)] Furosemide [Lasix] 40 mg PO DAILY 05/17/14 03/03/20 History Fluticasone Nasal [place] [Flonase 1 spray EA NOSTRIL RT-BID PRN 06/29/15 03/03/20 History Nasal [place]] Nitroglycerin Sl Tabs [Nitrostat] 0.4 mg SUBLINGUAL Q5M PRN 06/29/15 03/03/20 History Omeprazole [PriLOSEC] 20 mg PO QAM 06/29/15 03/03/20 History Clopidogrel [Plavix] 75 mg PO HS 01/06/17 03/03/20 History Budesonide-Formot 160-4.5 Mcg 2 puff INHALATION RT-BID 11/12/17 03/03/20 History [Symbicort 160-4.5 Mcg Inhaler] Ergocalciferol [Vitamin D2 50,000 unit PO MO 11/12/17 03/03/20 History (DRISDOL)] carvediloL [Coreg] 3.125 mg PO HS 11/12/17 03/03/20 History Warfarin [Coumadin] 2 mg PO DAILY 08/20/19 03/03/20 History Febuxostat [Uloric] 80 mg PO HS 09/16/19 03/03/20 History Pravastatin Sodium [Pravachol] 80 mg PO DAILY 09/16/19 03/03/20 History Allopurinol [Zyloprim] 300 mg PO DAILY 01/27/20 03/03/20 History Betamethasone Dipropionate 1 applic TOPICAL BID PRN 01/27/20 03/03/20 History [Diprolene 0.05% Ointment] Enoxaparin [Lovenox] 80 mg SQ DIRECTED 01/27/20 03/03/20 History Ipratropium-Albuterol Nebulize 3 ml INHALATION QID PRN 01/27/20 03/03/20 History [Duoneb 0.5 mg-3 mg/3 ml Soln] Pregabalin [Lyrica] 200 mg PO BID 01/27/20 03/03/20 History Sacubitril/Valsartan [Entresto 97 1 each PO BID 01/27/20 03/03/20 History mg-103 mg Tablet] HYDROcodone/APAP 10-325MG [[place] 1 tab PO Q4-6H PRN #40 tab 03/07/20 Rx 10-325] Sennosides-Docusate Sodium 2 tab PO DAILY #30 tablet 03/07/20 Rx [Senokot-S] Allergies Allergy/AdvReac Type Severity Reaction Status Date / Time aspirin Allergy Nausea & Verified 03/03/20 11:10 Vomiting surgical tape AdvReac blisters, Uncoded 03/03/20 11:10 red skin Physical Exam Vitals: Vital Signs Temp Pulse Pulse Pulse Pulse Pulse Resp 03/10/20 11:33 73 03/10/20 11:22 73 03/10/20 09:10 94 91 03/10/20 06:48 97.8 F 74 16 03/10/20 02:15 98.4 F 66 03/10/20 00:00 16 03/09/20 19:10 98.2 F 83 03/09/20 14:55 98.6 F 114 H 16 BP BP Pulse Ox Pulse Ox 03/10/20 11:33 03/10/20 11:22 03/10/20 09:10 84 L 03/10/20 06:48 102/55 96 03/10/20 02:15 107/65 96 03/10/20 00:00 03/09/20 19:10 140/69 96 03/09/20 14:55 146/81 95 Intake and Output 03/09/20 03/10/20 03/10/20 22:59 06:59 14:59 Intake Total 1000 320 Output Total 600 700 133 Balance 400 -700 187 Intake: IV 320 Sodium Chloride 0.9% 1, 320 000 ml @ 40 mls/hr IV . Q24H [facility] Rx#:[id number] Oral 1000 Output: Urine 600 700 Post Void Residual 133 Other: Voiding Method Bedside Commode # Voids 1 1 # Bowel Movements 1 Results 03/09/20 08:19 03/10/20 10:43 Coagulation 03/10/20 Range/Units 10:43 PT 25.7 H (9.0-12.0) sec Comprehensive Metabolic Panel 03/10/20 Range/Units 10:43 Sodium 134 L (137-145) mmol/L Potassium 4.6 (3.5-5.1) mmol/L Chloride 100 (98-107) mmol/L Carbon Dioxide 29 (22-30) mmol/L BUN 46 H (7-17) mg/dL Creatinine 1.47 H (0.52-1.04) mg/dL Glucose 95 (74-99) mg/dL Calcium 9.0 (8.4-10.2) mg/dL Current Medications Generic Name Dose Route Start Last Admin Trade Name Freq PRN Reason Stop Dose Admin Hydrocodone Bitart/Acetaminophen 1 each 03/05/20 12:11 03/10/20 10:39 [place] 10 PO 1 each Q4H PRN Administration Pain Albuterol/Ipratropium 3 ml 03/04/20 10:03 03/10/20 11:21 Duoneb 0.5 Mg-3 Mg/3 Ml Soln INHALATION 3 ml QID PRN Administration sob Allopurinol 300 mg 03/05/20 09:00 03/10/20 08:40 Zyloprim PO 300 mg DAILY DANIEL Administration Budesonide/Formoterol Fumarate 2 puff 03/04/20 20:00 03/10/20 08:03 Symbicort 160-4.5 Mcg Inhaler INHALATION 2 puff RT-BID DANIEL Administration Carvedilol 3.125 mg 03/04/20 21:00 03/09/20 20:39 Coreg PO 3.125 mg HS DANIEL Administration Clopidogrel Bisulfate 75 mg 03/04/20 21:00 03/09/20 20:40 Plavix PO 75 mg HS DANIEL Administration Enoxaparin Sodium 80 mg 03/06/20 09:00 03/09/20 08:13 Lovenox SQ 80 mg DAILY DANIEL Administration Fluticasone Propionate 1 spray 03/04/20 10:03 Flonase Nasal [place] EA NOSTRIL RT-BID PRN Congestion Hydromorphone HCl 0.125 mg 03/03/20 15:25 Dilaudid IVP Q3HR PRN Pain Scale 1 to 3 Hydromorphone HCl 0.25 mg 03/03/20 15:25 Dilaudid IVP Q3HR PRN Pain Scale 4 to 6 Hydromorphone HCl 0.5 mg 03/03/20 15:25 03/04/20 16:01 Dilaudid IVP 0.5 mg Q3HR PRN Administration Pain Scale 7 to 10 Hydroxyzine Pamoate 25 mg 03/03/20 15:25 03/10/20 05:11 Vistaril PO 25 mg Q4HR PRN Administration Nausea, Anxiety, Pain Control Sodium Chloride 1,000 mls @ 40 mls/hr 03/06/20 11:15 03/09/20 12:16 Saline 0.9% IV 40 mls/hr .Q24H DANIEL Administration Lidocaine HCl 0.1 ml 03/03/20 05:37 03/03/20 11:23 .Xylocaine 1% Inj (10mg/Ml) For Iv Start INTRADERMA 0.1 ml PER PROTOCOL PRN Administration IV Start Miscellaneous Information 0 each 03/04/20 10:51 Coumadin Per Pharmacy MISCELLANE DIRECTED PRN Per protocol Naloxone HCl 0.2 mg 03/03/20 15:25 Narcan IV Q2M PRN Opioid Reversal Nitroglycerin 0.4 mg 03/04/20 10:03 Nitrostat SUBLINGUAL Q5M PRN Angina Ondansetron HCl 4 mg 03/03/20 15:25 Zofran IVP Q8HR PRN Nausea And Vomiting Pantoprazole Sodium 40 mg 03/05/20 07:30 03/10/20 08:40 Protonix PO 40 mg AC-BRKFST DANIEL Administration Pregabalin 200 mg 03/04/20 21:00 03/10/20 08:40 Lyrica PO 200 mg BID DANIEL Administration Sacubitril/Valsartan 1 each 03/04/20 21:00 03/10/20 08:40 Entresto 97 Mg-103 Mg Tablet PO 1 each BID DANIEL Administration Senna/Docusate Sodium 2 each 03/03/20 21:00 03/09/20 20:39 Senokot-S PO 2 each HS DANIEL Administration Intake and Output 03/09/20 03/10/20 03/10/20 22:59 06:59 14:59 Intake Total 1000 320 Output Total 600 700 133 Balance 400 -700 187 Intake: IV 320 Sodium Chloride 0.9% 1, 320 000 ml @ 40 mls/hr IV . Q24H [facility] Rx#:[id number] Oral 1000 Output: Urine 600 700 Post Void Residual 133 Other: Voiding Method Bedside Commode # Voids 1 1 # Bowel Movements 1 03/09/20 08:19 03/10/20 10:43
--- NOTE | 2020-03-10 16:56 | PN ---
PROGRESS NOTE Patient is seen for followup for acute kidney injury. Her renal function is currently improving. Serum creatinine down to 1.47 from 2.26 yesterday. The patient is currently maintained on IV fluids which are now down to about 40 mL an hour. PHYSICAL EXAMINATION: On examination, blood pressure was 102/55, heart rate of 82 per minute, patient is afebrile. Examination of the heart S1, S2. Examination of the lungs, bilateral breath sounds are heard. Decreased breath sounds at bases. Abdomen is soft, nontender. Examination of the lower extremities shows 1+ edema. [employer] exam grossly intact. LABS: Sodium 134, potassium 4.6, chloride 100, BUN 46, creatinine 1.47. ASSESSMENT: 1. Acute kidney injury. Renal seems to have improved. 2. Chronic kidney disease stage 3 baseline creatinine 1.2-1.4 secondary to nephrosclerosis. 3. Severe left knee osteoarthritis. status post total knee arthroplasty on March 05. 4. Hyponatremia associated with acute kidney injury, now improved. 5. Anemia of chronic disease with evidence of iron deficiency. PLAN: Encourage increased oral intake. Discontinue IV fluids. Add IV iron. The patient may continue with Entresto. MMODL / IJN: [id number] /
[2020-03-10 16:59] LABS: Glucose,Whole Blood 116 mg/dL (75-99)
[2020-03-10] MEDS: SODIUM FERRIC GLUCONAT-SUCROSE 125 MG in SODIUM CHLORIDE 0.9% 100 ML IVPB SCH (17:15)
--- NOTE | 2020-03-10 17:35 | PN ---
PROGRESS NOTE DATE OF SERVICE: 03/09/2020 CHIEF COMPLAINT: Postop right TKA with heart failure. HISTORY OF PRESENT ILLNESS: This lady continues to have difficulty with shortness of breath. Her BUN and creatinine are starting to rise and she clearly has a cardiorenal issue at this time. REVIEW OF SYSTEMS: She denies any chest pain, but she is short of breath. She has had no abdominal pain, fever, chills, etc. The knee is doing well. PHYSICAL EXAMINATION: Chest demonstrates decreased breath sounds with scattered rales. Cardiac exam is unchanged with her usual murmur and the abdomen is soft, nontender. The knee looks good and there is no bleeding. IMPRESSION: 1. Status post right TKA. 2. Congestive heart failure. 3. Rheumatic heart disease. 4. Prerenal azotemia. 5. Renal failure. PLAN: Continue to try to improve on her congestive heart failure, while maintaining adequate perfusion of the kidneys. MMODL / IJN: [id number] /
--- NOTE | 2020-03-10 17:44 | PN ---
PROGRESS NOTE DATE OF SERVICE: 03/10/2020 CHIEF COMPLAINT: Status post right knee replacement and congestive heart failure. HISTORY OF PRESENT ILLNESS: This lady is doing a little bit better. Breathing is improved slightly. She has not had any chest pain. PHYSICAL EXAMINATION: She still has occasional rales and rhonchi. Cardiac exam is unchanged. The abdomen is soft, nontender. IMPRESSION: 1. Congestive heart failure. 2. Renal failure. PLAN: Continue to monitor her congestive heart failure as well as her renal failure, which is largely related to dehydration. MMODL / IJN: [id number] /
--- NOTE | 2020-03-10 17:50 | PN ---
PROGRESS NOTE DATE OF SERVICE: 03/08/2020 CHIEF COMPLAINT: Congestive heart failure. HISTORY OF PRESENT ILLNESS: This lady is doing reasonably well, but she is still quite dyspneic. The diuretic program has been increased. BUN and creatinine are trying to rise slightly. REVIEW OF SYSTEMS: She has no complaints of chest pain, abdominal pain, but she is still short of breath and wheezy. PHYSICAL EXAMINATION: Chest demonstrated scattered rales throughout with occasional rhonchi and some expiratory wheezing on both sides. Cardiac exam is unchanged. Abdomen is soft. Extremities are normal and she is having no difficulty with the knee. IMPRESSION: 1. Status post right TKA. 2. Congestive heart failure. 3. Rheumatic heart disease. PLAN: Continue slow diuresis. IV fluids were restarted because of her hypotension. MMODL / IJN: [id number] /
[2020-03-10] MEDS ORDERED: WARFARIN 3 MG TAB PO ONE (18:00)
[2020-03-10 20:39] LABS: Glucose,Whole Blood 165 mg/dL (75-99)
[2020-03-10] MEDS: SENNOSIDES-DOCUSATE SODIUM 1 EACH TAB PO SCH (22:26)
[2020-03-10] MEDS: CLOPIDOGREL 75 MG TAB PO SCH (22:27)
[2020-03-10] MEDS: carvediloL 3.125 MG TAB PO SCH (22:27)
[2020-03-11] MEDS: HYDROcodone/APAP 10-325MG 1 EACH TAB PO PRN ×3 (05:34→14:22)
[2020-03-11] MEDS: hydrOXYzine pamoate 25 MG CAP PO PRN ×3 (05:36→14:22)
[2020-03-11 06:59] LABS: Glucose,Whole Blood 115 mg/dL (75-99)
[2020-03-11 07:28] LABS: INR 3.4 (<1.2); Prothrombin Time 32.8 sec (9.0-12.0)
[2020-03-11 07:46] VITALS: BP 114/52; RESP 17; TEMP 97.9
--- NOTE | 2020-03-11 07:51 | XR ---
EXAMINATION TYPE: XR chest 1V portable DATE OF EXAM: 03/11/2020 Comparison: 03/08/2020 Clinical History: 69-year-old female with hypoxia Findings: Median sternotomy wires are present. Heart mildly enlarged. Mild diffuse interstitial prominence and peribronchial cuffing. Mild patchy density at the lower lungs. Impression: 1. Mild cardiomegaly. 2. Mild patchy lower lung densities could represent atelectasis or mild infiltrate, slightly increase d at the right base.
[2020-03-11] MEDS: IPRATROPIUM-ALBUTEROL 3 ML NEB INHALATION PRN ×2 (08:42→11:48)
[2020-03-11] MEDS: SYMBICORT 160-4.5 MCG INHALER INHALATION SCH (08:42)
[2020-03-11] MEDS: PREGABALIN 100 MG CAP PO SCH (09:19)
[2020-03-11] MEDS: PANTOPRAZOLE 40 MG TABLET PO SCH (09:19)
[2020-03-11] MEDS: SACUBITRIL/VALSARTAN 97 MG-103 MG TABLET PO SCH (09:20)
[2020-03-11] MEDS: allopurinoL 300 MG TAB PO SCH (09:20)
[2020-03-11] MEDS: SODIUM FERRIC GLUCONAT-SUCROSE 125 MG in SODIUM CHLORIDE 0.9% 100 ML IVPB SCH (09:28)
--- NOTE | 2020-03-11 09:41 | P.DS ---
Providers Date of admission: 03/05/20 11:18 Expected date of discharge: 03/11/20 Attending physician: Everett Narvaez Consults: 03/03/20 15:25 Consult Physician Routine Consulting Provider: Antione Cook Consult Reason/Comments: medical management - anticoagulation Do you want consulting provider notified?: Yes 03/09/20 10:42 Consult Physician Urgent Consulting Provider: Nomi Chavarria Consult Reason/Comments: Eval hypoxia Do you want consulting provider notified?: Yes 03/09/20 10:43 Consult Physician Routine Consulting Provider: Dayana Mohamud Consult Reason/Comments: Renal failure Do you want consulting provider notified?: Yes 03/09/20 11:04 Consult Physician Routine Consulting Provider: Anita Gautam Consult Reason/Comments: rheumatic heart disease Do you want consulting provider notified?: Yes Primary care physician: Antione Cook - Discharge Diagnosis(es) (1) Osteoarthritis of right knee Current Visit: Yes Status: Acute (2) Status post total right knee replacement Current Visit: Yes Status: Acute Hospital Course: This is a 69-year-old female who was last seen with complaint of continued right knee pain. The patient has a known history of degenerative arthritis of the right knee and presents to discuss surgical options. After discussion and consideration the patient elects to proceed with total right knee arthroplasty. The patient is seen preoperatively by Dr. Cook and cleared for surgery. The patient is admitted to [facility] for total right knee arthroplasty. The procedures performed without complication. She had some postoperative complications including hypoxia and acute on chronic renal failure. The patient will be going home on oxygen. Vital signs are stable at discharge. Labs are stable at discharge. The patient is ambulating well with walker with minimal assistance. The patient is discharged to home on postop day #8 pending medical clearance. Please see orders and refer to the med rec for accurate list of medications. Patient Condition at Discharge: Stable Plan - Discharge Summary Discharge Rx Participant: No New Discharge Prescriptions: New HYDROcodone/APAP 10-325MG [[place] 10-325] 1 tab PO Q4-6H PRN #40 tab PRN Reason: Pain Sennosides-Docusate Sodium [Senokot-S] 2 tab PO DAILY #30 tablet No Action Furosemide [Lasix] 40 mg PO DAILY Albuterol Inhaler (Mhu) [Ventolin Hfa Inhaler (Mhu)] 2 puff INHALATION RT-QID PRN PRN Reason: Shortness Of Breath Or Wheezing Acetaminophen-Codeine 300-30mg [Tylenol w/codeine #3] 1 tab PO Q4H PRN PRN Reason: Pain Omeprazole [PriLOSEC] 20 mg PO QAM Nitroglycerin Sl Tabs [Nitrostat] 0.4 mg SUBLINGUAL Q5M PRN PRN Reason: Angina Fluticasone Nasal [place] [Flonase Nasal [place]] 1 spray EA NOSTRIL RT-BID PRN PRN Reason: Congestion Clopidogrel [Plavix] 75 mg PO HS carvediloL [Coreg] 3.125 mg PO HS Budesonide-Formot 160-4.5 Mcg [Symbicort 160-4.5 Mcg Inhaler] 2 puff INHALATION RT-BID Ergocalciferol [Vitamin D2 (DRISDOL)] 50,000 unit PO MO Warfarin [Coumadin] 2 mg PO DAILY Pravastatin Sodium [Pravachol] 80 mg PO DAILY Febuxostat [Uloric] 80 mg PO HS Allopurinol [Zyloprim] 300 mg PO DAILY Pregabalin [Lyrica] 200 mg PO BID Sacubitril/Valsartan [Entresto 97 mg-103 mg Tablet] 1 each PO BID Betamethasone Dipropionate [Diprolene 0.05% Ointment] 1 applic TOPICAL BID PRN PRN Reason: Itching Ipratropium-Albuterol Nebulize [Duoneb 0.5 mg-3 mg/3 ml Soln] 3 ml INHALATION QID PRN PRN Reason: sob Enoxaparin [Lovenox] 80 mg SQ DIRECTED Discharge Medication List Acetaminophen-Codeine 300-30mg [Tylenol w/codeine #3] 1 tab PO Q4H PRN 05/17/14 [History] Albuterol Inhaler (Mhu) [Ventolin Hfa Inhaler (Mhu)] 2 puff INHALATION RT-QID PRN 05/17/14 [History] Furosemide [Lasix] 40 mg PO DAILY 05/17/14 [History] Fluticasone Nasal [place] [Flonase Nasal [place]] 1 spray EA NOSTRIL RT-BID PRN 06/29/15 [History] Nitroglycerin Sl Tabs [Nitrostat] 0.4 mg SUBLINGUAL Q5M PRN 06/29/15 [History] Omeprazole [PriLOSEC] 20 mg PO QAM 06/29/15 [History] Clopidogrel [Plavix] 75 mg PO HS 01/06/17 [History] Budesonide-Formot 160-4.5 Mcg [Symbicort 160-4.5 Mcg Inhaler] 2 puff INHALATION RT-BID 11/12/17 [History] Ergocalciferol [Vitamin D2 (DRISDOL)] 50,000 unit PO MO 11/12/17 [History] carvediloL [Coreg] 3.125 mg PO HS 11/12/17 [History] Warfarin [Coumadin] 2 mg PO DAILY 08/20/19 [History] Febuxostat [Uloric] 80 mg PO HS 09/16/19 [History] Pravastatin Sodium [Pravachol] 80 mg PO DAILY 09/16/19 [History] Allopurinol [Zyloprim] 300 mg PO DAILY 01/27/20 [History] Betamethasone Dipropionate [Diprolene 0.05% Ointment] 1 applic TOPICAL BID PRN 01/27/20 [History] Enoxaparin [Lovenox] 80 mg SQ DIRECTED 01/27/20 [History] Ipratropium-Albuterol Nebulize [Duoneb 0.5 mg-3 mg/3 ml Soln] 3 ml INHALATION QID PRN 01/27/20 [History] Pregabalin [Lyrica] 200 mg PO BID 01/27/20 [History] Sacubitril/Valsartan [Entresto 97 mg-103 mg Tablet] 1 each PO BID 01/27/20 [History] HYDROcodone/APAP 10-325MG [[place] 10-325] 1 tab PO Q4-6H PRN #40 tab 03/07/20 [Rx] Sennosides-Docusate Sodium [Senokot-S] 2 tab PO DAILY #30 tablet 03/07/20 [Rx] Follow up Appointment(s)/Referral(s): [facility], [NON-STAFF] - As Needed Everett Narvaez MD [STAFF PHYSICIAN] - 03/19/20 9:50 am Patient Instructions/Handouts: *Surgery [facility] - (O&A) Arthroscopic Knee Post-Op Instructions Activity/Diet/Wound Care/Special Instructions: Weight bear as tolerated on operative leg. Keep Optifoam dressing in place for 7-10 days. DVT prophylaxis per Dr. Cook. Pain management as needed. Follow-up in the office in 2 weeks with Meredith Alba PA-C. Call the office with any questions or concerns, Discharge Disposition: HOME WITH HOME HEALTH SERVICES
--- NOTE | 2020-03-11 11:07 | P.PN ---
Subjective Progress Note Date: 03/11/20 HISTORY OF PRESENTING ILLNESS This is a pleasant 69-year-old female past medical history significant for valvular heart disease status post mechanical [place] mitral valve replacement, CVA, hypertension, diabetes mellitus, COPD, former nicotine dependence, chronic kidney disease and chronic diastolic heart failure. She follows in the office with Dr. Samaniego. We have been asked to see in consultation for rheumatic heart disease. She came to the hospital for an elective repair of her right knee with Dr. Narvaez. She saw Dr. Samaniego prior to surgery in the office and lovenx bridging was recommended. She was a moderate risk for surgery. The patient states she had surgery without difficulty or incident on 03/03 however on POD#2 she had an acute onset of shortness of breath. Venous Doppler and VQ scans were unremarkable for thrombosis. She was given IV Lasix and her symptoms have greatly improved. She states she has been up and ambulating today through the [facility]atz with physical therapy and back and forth to the bathroom without dyspnea. She denies symptoms of chest pain, dizziness or palpitations. She continues to use oxygen via the nasal cannula with episodes of hypoxia noted. On exam clinically she is euvolemic. She was bridged with lovenox for her valve prior to surgery and thereafter. 03/11/2020 Patient seen and examined. Patient admits her shortness of breath is dramatically improved. She denies any chest pain, pressure, orthopnea. Patient is anxious to go home. REVIEW OF SYSTEMS At the time of my exam: CONSTITUTIONAL: Denies fever or chills. CARDIOVASCULAR: Denies chest pain, shortness of breath, orthopnea, PND or palpitations. RESPIRATORY: Denies cough. GASTROINTESTINAL: Denies abdominal pain, diarrhea, constipation, nausea or vomiting. MUSCULOSKELETAL: Denies myalgias. NEUROLOGIC: Denies numbness, tingling or weakness. ENDOCRINE: Denies fatigue, weight change, polydipsia or polyurina. GENITOURINARY: Denies burning, hematuria or urgency with micturation. HEMATOLOGIC: Denies history of anemia or bleeding. PHYSICAL EXAMINATION Blood pressure 114/52 heart rate 72 afebrile and maintaining oxygen saturation on a nasal cannula. CONSTITUTIONAL: No apparent distress. HEENT: Head is normocephalic. Pupils are equal, round. Sclerae anicteric. Mucous membranes of the mouth are moist. No JVD. No carotid bruit. CHEST EXAMINATION: Mild crackles at bases HEART EXAMINATION: Regular rate and rhythm. S1, S2 heard. Mechanical click at the apex, no murmurs, gallops or rub. ABDOMEN: Soft, nontender. Positive bowel sounds. EXTREMITIES: 2+ peripheral pulses, 1+ pitting edema on the right lower extremity, trace non-pitting edema on the left and no calf tenderness. NEUROLOGIC EXAMINATION: Patient is awake, alert and oriented x3. ASSESSMENT Acute fluid overload secondary to acute on chronic diastolic heart failure, improved s/p right knee total replacement Hypoxia Acute kidney injury with history of chronic renal failure Valvular heart disease s/p mechanical mitral valve repair maintained on coumadin Hypertension Diabetes mellitus COPD History of CVA maintained on plavix Dyslipidemia PLAN Patient appears near euvolemic. INR is now at 3.4. Kidney function has been improving. Patient appears stable for discharge home with outpatient follow-up with Dr. Samaniego. Would recommend continuing patient on her home Lasix 40 mg daily. Objective - Vital Signs Vital signs: Vital Signs Temp 97.9 F 03/11/20 07:00 Pulse 84 03/11/20 09:01 Resp 17 03/11/20 07:00 BP 114/52 03/11/20 07:00 Pulse Ox 94 L 03/11/20 07:00 Intake & Output 03/10/20 03/11/20 03/11/20 18:59 06:59 18:59 Intake Total 800 Output Total 684 Balance 116 Intake: IV 320 Sodium Chloride 0.9% 1, 320 000 ml @ 40 mls/hr IV . Q24H [facility] Rx#:[id number] Oral 480 Output: Urine 400 Post Void Residual 284 Other: Voiding Method Bedside Commode Bedside Commode # Voids 1 3 # Bowel Movements 1 2 - Labs CBC & Chem 7: 03/09/20 08:19 03/10/20 10:43 Labs: Abnormal Lab Results - Last 24 Hours (Table) 03/10/20 03/10/20 03/10/20 Range/Units 10:43 10:43 16:55 PT 25.7 H (9.0-12.0) sec INR 2.6 H (<1.2) Sodium 134 L (137-145) mmol/L BUN 46 H (7-17) mg/dL Creatinine 1.47 H (0.52-1.04) mg/dL POC Glucose (mg/dL) 116 H (75-99) mg/dL 03/10/20 03/11/20 03/11/20 Range/Units 20:37 06:55 06:57 PT 32.8 H (9.0-12.0) sec INR 3.4 H (<1.2) Sodium (137-145) mmol/L BUN (7-17) mg/dL Creatinine (0.52-1.04) mg/dL POC Glucose (mg/dL) 165 H 115 H (75-99) mg/dL
--- NOTE | 2020-03-11 11:28 | PN ---
PROGRESS NOTE Patient is seen for followup for acute kidney injury. Her renal function has improved with creatinine down to 1.47 yesterday from peak of 2.26. Overall, patient states she is feeling better. She is eating well. PHYSICAL EXAMINATION: On examination today, blood pressure is 114/52, heart rate 80 per minute, she is afebrile. Examination of the heart S1, S2. Examination of the lungs, bilateral breath sounds are heard. Abdomen is soft, nontender. Examination of the lower extremities shows trace edema bilaterally. [employer] exam grossly intact. LABS: Show from yesterday serum creatinine down to 1.47, sodium 134. ASSESSMENT: 1. Acute kidney injury, currently improved. 2. Chronic kidney disease stage 3, baseline 1.2-1.4 secondary to nephrosclerosis. 3. Severe left knee osteoarthritis, status post left total knee arthroplasty on 03/05/2020. 4. Hyponatremia associated with acute kidney injury, now improved. PLAN: Discontinue IV fluids. Monitor labs as outpatient. Avoid nephrotoxic agents as outpatient. MMODL / IJN: [id number] /
[2020-03-11 11:59] VITALS: PULSE 88
[2020-03-11 12:19] LABS: Glucose,Whole Blood 108 mg/dL (75-99)
[2020-03-11 13:28] VITALS: BMI 38.5
[2020-03-11] MEDS ORDERED: WARFARIN 0.5 MG TAB PO ONE (18:00)
[2020-03-11] MEDS ORDERED: WARFARIN 1 MG TAB PO SCH (18:00)
--- NOTE | 2020-03-11 22:40 | DS ---
DISCHARGE SUMMARY CHIEF COMPLAINT: Osteoarthritis of the right knee. HISTORY OF PRESENT ILLNESS AND PHYSICAL EXAMINATION: Details of this lady's history and physical can be found in the initial workup. LABORATORY STUDIES: While she was in the hospital she had laboratory studies, details of which can be found in the laboratory section of her chart. COURSE IN THE HOSPITAL: After admission she was placed on bedrest, started on intravenous fluids and underwent right TKA. Postoperatively the knee did well, but she had difficulty with fluid accumulation and shortness of breath. She went further into congestive heart failure. Diuretics were instituted and her breathing improved. However, her renal function then started to deteriorate. Diuretics were withheld and fluids administered, and renal function started to return, but she continued to have difficulty breathing. She was eventually seen by Cardiology, Pulmonology and the renal service. She began to stabilize with a reasonable BUN and creatinine and less shortness of breath, and she was doing well enough that it was felt that she could go home on March 11. She will go home on light activity about the house and she will be set up with home care. She will follow up in our office in several days. FINAL DIAGNOSES: 1. Osteoarthritis of right knee. 2. Rheumatic heart disease. 3. Chronic systolic and diastolic congestive heart failure. 4. Acute diastolic heart failure. 5. Renal failure. OPERATIONS: Right total knee. CONSULTATIONS: 1. Orthopedics. 2. Cardiology. 3. Pulmonology. 4. Med/Renal. She is improved. MMODL / IJN: [id number] /
== END 2020-03-11 14:41 | disposition home health service (06) | DRG 981 ==
LOC: OR 10:32 → 4SSUR 15:31 → OR 03-04 11:41 → 4SSUR 03-04 11:41 → OBSVTOIN 03-05 11:18 → 4SSUR 03-05 11:36
PROVIDERS: ADMIT Orthopaedic Surgery; ATTEND Orthopaedic Surgery
PROC: 0SRC0J9 Replacement of Right Knee Joint with Synthetic Substitute, Cemented, Open Approach (ICD-10-PCS; principal; 2020-03-03 12:30)
DX: I13.0 Hypertensive heart and chronic kidney disease with heart failure and stage 1 through stage 4 chronic kidney disease, or unspecified chronic kidney disease (principal); J96.01 Acute respiratory failure with hypoxia; I50.43 Acute on chronic combined systolic (congestive) and diastolic (congestive) heart failure; N17.9 Acute kidney failure, unspecified; E87.1 Hypo-osmolality and hyponatremia; J98.11 Atelectasis; M17.11 Unilateral primary osteoarthritis, right knee; T50.1X5A Adverse effect of loop [high-ceiling] diuretics, initial encounter; T46.5X5A Adverse effect of other antihypertensive drugs, initial encounter; M21.161 Varus deformity, not elsewhere classified, right knee; D63.1 Anemia in chronic kidney disease; E11.22 Type 2 diabetes mellitus with diabetic chronic kidney disease; I25.10 Atherosclerotic heart disease of native coronary artery without angina pectoris; J44.9 Chronic obstructive pulmonary disease, unspecified; N18.3 Chronic kidney disease, stage 3 (moderate); E78.5 Hyperlipidemia, unspecified; F41.9 Anxiety disorder, unspecified; I95.89 Other hypotension; T50.2X5A Adverse effect of carbonic-anhydrase inhibitors, benzothiadiazides and other diuretics, initial encounter; I09.9 Rheumatic heart disease, unspecified; E66.3 Overweight; I25.2 Old myocardial infarction; Z88.6 Allergy status to analgesic agent; Z88.1 Allergy status to other antibiotic agents; Z95.2 Presence of prosthetic heart valve; Z98.51 Tubal ligation status; Z87.891 Personal history of nicotine dependence; Z86.73 Personal history of transient ischemic attack (TIA), and cerebral infarction without residual deficits; Z86.718 Personal history of other venous thrombosis and embolism; Z95.1 Presence of aortocoronary bypass graft; Z98.890 Other specified postprocedural states; Z83.3 Family history of diabetes mellitus; Z80.0 Family history of malignant neoplasm of digestive organs; Z80.1 Family history of malignant neoplasm of trachea, bronchus and lung; Z82.49 Family history of ischemic heart disease and other diseases of the circulatory system; Z82.5 Family history of asthma and other chronic lower respiratory diseases; Z79.01 Long term (current) use of anticoagulants; Z79.02 Long term (current) use of antithrombotics/antiplatelets; Z79.51 Long term (current) use of inhaled steroids; Z79.899 Other long term (current) drug therapy; Z88.8 Allergy status to other drugs, medicaments and biological substances; Z68.38 Body mass index [BMI] 38.0-38.9, adult
CPT/HCPCS: 71045; 71046; 78582; 80048; 80053; 82728; 83540; 83550; 83735; 83880; 84484; 85025; 85379; 85610; 88300; 93005; 93970; 94640; 94760

== ENCOUNTER → 2020-06-11 | Outpatient (CLI) | payer MEDICARE, OTHER ==
--- NOTE | 2020-06-11 15:07 | US ---
EXAMINATION TYPE: US venous doppler duplex LE RT DATE OF EXAM: 06/11/2020 2:52 PM COMPARISON: Prior ultrasounds most recent March 09, 2020 CLINICAL HISTORY: E11.9 TYPE II DM,I80.9 PHLEBITIS AND THROMBOPHLEBITIS. Right knee and calf swelling x 2 weeks. Patient is post right knee replacement February 2020. Today had fluid aspirated from rt kne e joint. SIDE PERFORMED: Right TECHNIQUE: The lower extremity deep venous system is examined utilizing real time linear array sonog perez with graded compression, doppler sonography and color-flow sonography. VESSELS IMAGED: Common Femoral Vein Deep Femoral Vein Greater Saphenous Vein * Femoral Vein Popliteal Vein Small Saphenous Vein * Proximal Calf Veins (* superficial vessels) Right Leg: Negative for acute DVT. Patient has intimal wall thickening (chronic non occluding change s) noted upper Right Femoral Vein and at valves where vein is dilated at distal Femoral Vein. Complex Fluid area is noted = 9.0 x 4.6 x 1.9cm anterior right knee and as compared to left anterior knee. Grayscale, color doppler, spectral doppler imaging performed of the deep veins of the right lower ext remity. IMPRESSION: No ultrasound evidence for new or acute DVT in the right lower extremity. Evidence of ch ronic or prior DVT distally noted on today's study. New anterior deep complex fluid collection. Corre late clinically.
== END | disposition home or self-care (01) ==
LOC: RADUSWWP 14:08
PROVIDERS: ATTEND Orthopaedic Surgery
DX: R93.7 Abnormal findings on diagnostic imaging of other parts of musculoskeletal system (principal); I80.3 Phlebitis and thrombophlebitis of lower extremities, unspecified; E11.9 Type 2 diabetes mellitus without complications; I10 Essential (primary) hypertension; M17.12 Unilateral primary osteoarthritis, left knee; I51.9 Heart disease, unspecified; M25.562 Pain in left knee; M25.561 Pain in right knee; M79.661 Pain in right lower leg; Z87.891 Personal history of nicotine dependence; Z96.651 Presence of right artificial knee joint